=== PATIENT | male | born 1940 | race Caucasian/White ===

== ENCOUNTER 2016-07-17 07:31 | Inpatient (IN) | payer MEDICARE ==
[2016-07-17] VITALS (15 sets, daily range): BP systolic 109–159; BP diastolic 65–109; PULSE 64–95; RESP 14–20; TEMP 97.8–98.2; O2SAT 97–100
[~2016-07-17] VITALS: Ht 172.7 cm; Wt 76.3 kg
[~2016-07-17 07:31] MED LIST: ASPI81 CHEW; ATOR40TA PO; CLON0.5T PO; DOCU1CAP39 PO; MECL12.574 PO; METO50TA PO; MULT1TAB46 PO; NIGH25TA PO; PERC5TAB12 PO; ZOLP5TAB3 PO
[2016-07-17] MEDS ORDERED: SODIUM CHLOR 0.9% 250 ML INJ 250 ML IV ONE (08:00)
[2016-07-17] MEDS ORDERED: SODIUM CHLORIDE 0.9% FLUSH 5 ML FLUSH IVF PRN ×2 (08:00→09:15)
[2016-07-17 08:03] LABS: AUTOMATED NEUTROPHIL # 3.5 TH/MM3 (1.8-7.7); BASOPHIL % 0.9 % (0.0-2.0); EOSINOPHIL # 0.2 TH/MM3 (0-0.4); EOSINOPHIL % 4.4 % (0.0-4.0); HEMATOCRIT 33.6 % (39.0-51.0); LYMPH % 17.5 % (9.0-44.0); LYMPHOCYTE # 0.9 TH/MM3 (1.0-4.8); MEAN CELL VOLUME 74.6 FL (80.0-100.0); MEAN CORPUSCULAR HGB CONC 32.2 % (32.0-36.0); MONO % 7.7 % (0.0-8.0); NEUT % 69.5 % (16.0-70.0); PLATELET COUNT 188 TH/MM3 (150-450); RED CELL DISTRIBUTION WIDTH 20.3 % (11.6-17.2); WHITE BLOOD COUNT 5.1 TH/MM3 (4.0-11.0)
[2016-07-17 08:06] LABS: HEMO FLAGS AUTO DIFF
--- NOTE | 2016-07-17 08:06 | RADRPT ---
EXAM DATE/TIME: 07/17/2016 07:44 [facility] COMPARISON: CHEST SINGLE AP, February 15, 2016, 5:00. INDICATIONS : Possible CVA. MEDICAL HISTORY : Hypertension. Carcinoma, prostate. Renal carcinoma. SURGICAL HISTORY : Aortic valve replacement, mitral valve ring, nephrectomy. ENCOUNTER: Initial ACUITY: 1 day PAIN SCORE: 0/10 LOCATION: Bilateral chest FINDINGS: No infiltrate, effusion or pneumothorax. Normal heart size. Tortuous thoracic aorta and mediastinal v essels again noted. Patient has had previous median sternotomy. CONCLUSION: No evidence of acute cardiopulmonary disease. Michael Treviño MD on July 17, 2016 at 8:04 Board Certified Radiologist. This report was verified electronically.
[2016-07-17 08:10] LABS: APTT (PATIENT) 23.6 SEC (24.3-30.1); PROTHROMBIN TIME - PATIENT 10.5 SEC (9.8-11.6)
--- NOTE | 2016-07-17 08:11 | RADRPT ---
EXAM DATE/TIME: 07/17/2016 07:55 [facility] COMPARISON: No previous studies available for comparison. INDICATIONS : Left sided weakness. RADIATION DOSE: 56.35 CTDIvol (mGy) MEDICAL HISTORY : Hypertension. Cardiovascular disease Carcinoma, not otherwise specified. SURGICAL HISTORY : None. ENCOUNTER: Initial ACUITY: 1 day PAIN SCALE: 0/10 LOCATION: cranial TECHNIQUE: Multiple contiguous axial images were obtained of the head. Using automated exposure control and adj ustment of the mA and/or kV according to patient size, radiation dose was kept as low as reasonably a chievable to obtain optimal diagnostic quality images. FINDINGS: CEREBRUM: The ventricles are normal for age. No evidence of midline shift, mass lesion, hemorrhage or acute in farction. No extra-axial fluid collections are seen. There is low attenuation in the periventricular white matter. POSTERIOR FOSSA: The cerebellum and brainstem are intact. The 4th ventricle is midline. The cerebellopontine angle i s unremarkable. EXTRACRANIAL: The visualized portion of the orbits is intact. SKULL: The calvaria is intact. No evidence of skull fracture. CONCLUSION: No acute intracranial abnormality. Chronic white matter changes. Michael Treviño MD on July 17, 2016 at 8:08 Board Certified Radiologist. This report was verified electronically.
--- NOTE | 2016-07-17 08:12 | PD ---
HPI Chief Complaint: Neuro Symptoms/ Deficits Time Seen by Provider: 07:46 Travel History International Travel<30 days: No Contact w/Intl Traveler<30days: No Traveled to known affect area: No History of Present Illness HPI 75-year-old male came to the emergency room by EMS with strokelike symptoms. He was last seen normal by his daughter at 9 PM last night. He woke up at around 6:30 when he was complaining of left arm and left leg weakness to his daughter who called 911. As per EMS his weakness continued on route. He was a GCS of 15 according to them. His blood sugar was 102. He was hemodynamically stable. Patient was not complaining of any headache, no slurred speech. Patient did not wake up in the middle of the night to confirm any time of onset. Upon arrival patient continued to be weak on his left upper and more so on the left lower extremity. He was oriented in time place and person. Once again he was hemodynamically stable. Patient has history of mechanical valves and is not anticoagulated. No past history of CVA. [facility] Past Medical History Narrative Medical List of his past medical and social history as reviewed from the nursing note. Hx Anticoagulant Therapy: Yes Cancer: Yes (Kidney, prostate) Cardiovascular Problems: Yes High Cholesterol: Yes Chest Pain: No Diabetes: No Diminished Hearing: No Gastrointestinal Disorders: No GERD: Yes Glaucoma: No Genitourinary: Yes (right kidney removal) Hepatitis: No Hiatal Hernia: No Hypertension: Yes Inguinal Hernia: Yes Respiratory: No Integumentary: No Thyroid Disease: No ?: Not Past Surgical History Abdominal Surgery: Yes (INGUINAL HERNIA, HEMORRHOIDECTOMY) Endocrine Surgery: Yes (Right kidney removed for CA) Genitourinary Surgery: Yes (Hernia repair, Hemoroids) Thoracic Surgery: No Valve Replacement: Yes (AORTIC VALVE, MITRAL VALVE RING) Other Surgery: Yes Social History Alcohol Use: Yes (OCCASIONAL) Tobacco Use: No Substance Use: No Allergies-Medications (Allergen,Severity, Reaction): Coded Allergies: Benazepril (Verified Allergy, Severe, 02/14/16) Cipro (Verified Allergy, Severe, 02/14/16) Ibuprofen (Verified Allergy, Unknown, 07/17/16) Contrast Media (Verified Adverse Reaction, Unknown, 02/14/16) Pt has one Kidney Comments List of his allergies reviewed from the nursing note. Reported Meds & Prescriptions Reported Meds & Active Scripts Active Reported Lisinopril 20 Mg Tab 20 Mg PO DAILY Clonazepam 0.5 Mg Tab 0.25-0.5 Mg PO BID PRN Take daily as needed for anxiety or at bedtime as needed for insomnia Ambien (Zolpidem Tartrate) 5 Mg Tab 5 Mg PO HS PRN Benadryl Allergy (Diphenhydramine HCl) 25 Mg Tab 25 Mg PO HS PRN Meclizine (Meclizine HCl) 12.5 Mg Tab 12.5 Mg PO Q8HR PRN Percocet (Oxycodone-Acetaminophen) 5-325 mg Tab 0.5-1 Tab PO Q6HR PRN Tylenol Extra Strength (Acetaminophen) 500 Mg Tab 500 Mg PO Q6HR PRN Metoprolol Tartrate 25 Mg Tab 50 Mg PO BID Lipitor (Atorvastatin Calcium) 40 Mg Tab 40 Mg PO HS Norvasc (Amlodipine Besylate) 5 Mg Tab 5 Mg PO DAILY Omeprazole 20 Mg Tab 20 Mg PO DAILY Multi Vitamin (Multiple Vitamin) 1 Tab Tab 1 Tab PO DAILY Glucosamine-Chondroitin Unknown Strength Tab 1 Tab PO DAILY Colace (Docusate Sodium) 100 Mg Cap 100 Mg PO DAILY Aspirin Adult Low Strength (Aspirin) 81 Mg Tabdr 81 Mg PO DAILY Narrative Medication List of his home medications reviewed from the nursing note. Review of Systems Except as stated in HPI: all other systems reviewed are Neg Physical Exam Narrative GENERAL: Awake, eyes closed but opens on verbal stimuli, no obvious distress SKIN: Warm and dry. HEAD: Atraumatic. Normocephalic. EYES: Pupils equal and round. No scleral icterus. No injection or drainage. ENT: No nasal bleeding or discharge. Mucous membranes pink and moist. NECK: Trachea midline. No JVD. CARDIOVASCULAR: Regular rate and rhythm. No murmur appreciated. RESPIRATORY: No accessory muscle use. Clear to auscultation. Breath sounds equal bilaterally. GASTROINTESTINAL: Abdomen soft, non-tender, nondistended. Hepatic and splenic margins not palpable. MUSCULOSKELETAL: No obvious deformities. No clubbing. No cyanosis. No edema. NEUROLOGICAL: GCS of 14, left upper extremity strength of 3 out of 5 and left lower extremity strength of 2 out of 5, left homonymous hemianopia, patient is unable to read without his glasses. Best NIH stroke score without the reading glasses was 11 PSYCHIATRIC: Appropriate mood and affect; insight and judgment normal. Data Data Last Documented VS Vital Signs Date Time Temp Pulse Resp B/P Pulse Ox O2 Delivery O2 Flow Rate FiO2 07/17/16 07:49 65 18 145/98 98 Room Air 07/17/16 07:39 98.2 Orders Electrocardiogram (07/17/16 07:46) Prothrombin Time / Inr (Pt) (07/17/16 07:46) Act Partial Throm Time (Ptt) (07/17/16 07:46) Complete Blood Count With Diff (07/17/16 07:46) Comprehensive Metabolic Panel (07/17/16 07:46) Creatine Kinase (Cpk) (07/17/16 07:46) Troponin I (07/17/16 07:46) Urinalysis - C+S If Indicated (07/17/16 07:46) Ct Brain W/O Iv Contrast(Rout) (07/17/16 07:46) Chest, Single Ap (07/17/16 07:46) Ecg Monitoring (07/17/16 07:46) Iv Access Insert/Monitor (07/17/16 07:46) Oximetry (07/17/16 07:46) Sodium Chloride 0.9% Flush (Ns Flush) (07/17/16 08:00) Sodium Chlor 0.9% 250 Ml Inj (Ns 250 Ml (07/17/16 08:00) Aspirin Supp (Aspirin Supp) (07/17/16 08:15) Mri Brain W/O Contrast (07/17/16 ) Mra Brain W/O Contrast (Cow) (07/17/16 ) Us Carotid Arteries Comp Bilat (07/17/16 ) Neuro Checks . ORDERED (07/17/16 08:13) Echo 2d Comp W/Dopp(Routine) (07/17/16 ) Sodium Chlor 0.9% 1000 Ml Inj (Ns 1000 M (07/17/16 09:32) Admit Order (Ed Use Only) (07/17/16 08:56) Labs Laboratory Tests Test 07/17/16 07/17/16 07:25 08:36 White Blood Count 5.1 TH/MM3 Red Blood Count 4.50 MIL/MM3 Hemoglobin 10.8 GM/DL Hematocrit 33.6 % Mean Corpuscular Volume 74.6 FL Mean Corpuscular Hemoglobin 24.0 PG Mean Corpuscular Hemoglobin 32.2 % Concent Red Cell Distribution Width 20.3 % Platelet Count 188 TH/MM3 Mean Platelet Volume 7.6 FL Neutrophils (%) (Auto) 69.5 % Lymphocytes (%) (Auto) 17.5 % Monocytes (%) (Auto) 7.7 % Eosinophils (%) (Auto) 4.4 % Basophils (%) (Auto) 0.9 % Neutrophils # (Auto) 3.5 TH/MM3 Lymphocytes # (Auto) 0.9 TH/MM3 Monocytes # (Auto) 0.4 TH/MM3 Eosinophils # (Auto) 0.2 TH/MM3 Basophils # (Auto) 0.0 TH/MM3 CBC Comment AUTO DIFF Differential Comment AUTO DIFF CONFIRMED Prothrombin Time 10.5 SEC Prothromb Time International 1.0 RATIO Ratio Activated Partial 23.6 SEC Thromboplast Time Sodium Level 141 MEQ/L Potassium Level 4.9 MEQ/L Chloride Level 108 MEQ/L Carbon Dioxide Level 27.4 MEQ/L Anion Gap 6 MEQ/L Blood Urea Nitrogen 23 MG/DL Creatinine 1.66 MG/DL Estimat Glomerular Filtration 41 ML/MIN Rate Random Glucose 107 MG/DL Hemoglobin A1c 5.9 % Calcium Level 8.4 MG/DL Total Bilirubin 0.3 MG/DL Aspartate Amino Transf 18 U/L (AST/SGOT) Alanine Aminotransferase 18 U/L (ALT/SGPT) Alkaline Phosphatase 77 U/L Total Creatine Kinase 103 U/L Troponin I 0.03 NG/ML Total Protein 6.4 GM/DL Albumin 3.3 GM/DL Urine Color LIGHT-YELLOW Urine Turbidity CLEAR Urine pH 5.5 Urine Specific [place] 1.011 Urine Protein NEG mg/dL Urine Glucose (UA) NEG mg/dL Urine Ketones NEG mg/dL Urine Occult Blood NEG Urine Nitrite NEG Urine Bilirubin NEG Urine Urobilinogen LESS THAN 2.0 MG/DL Urine Leukocyte Esterase NEG Urine WBC LESS THAN 1 /hpf Urine Mucus FEW /lpf Microscopic Urinalysis Comment CATH-CULT NOT IND MDM Medical Decision Making Medical Screen Exam Complete: Yes Emergency Medical Condition: Yes Medical Record Reviewed: Yes Interpretation(s) Twelve-lead EKG was reviewed by me. Normal sinus rhythm, normal axis, lateral T wave inversions, LVH by voltage criteria. Heart rate of 62 bpm. Differential Diagnosis Thromboembolic CVA, hemorrhagic CVA, intracranial tumor Narrative Course 8:[address] scan without contrast did not show any bleed or any significant abnormality. Chest x-ray did not show any acute abnormality. I discussed the case with Dr. South who is clinical documentation improvement specialist for neurology. He agreed that given the unknown time of onset but definitely between last seen normal and recognition of stroke was more than 4.5 hours, patient is not a TPA candidate or any intervention at this point. He did not want the patient to be on any anticoagulant except for an aspirin suppository. He wanted MRI and MRA ordered along with ultrasound of the carotids and echocardiogram. He also wanted neurochecks every 2 hours. He is on his way to see the patient. I spoke with the patient's daughter who happens to be a staph at [employer] and updated her about his condition. Patient will require admission and given his extensive show he should be admitted to at least [facility]. Waiting for the blood test results to come back if I speak with the hospitalist. His head end of the bed would be flat and I have ordered 250 cc of IV fluid followed by maintenance. Critical Care Narrative Aggregate critical care time was 45 minutes. Time to perform other separately billable procedures was not included in the critical care time. My time did not include minutes spent treating any other patients simultaneously or on activities that did not directly contribute to the patient's treatment. The services I provided to this patient were to treat and/or prevent clinically significant deterioration that could result in: Acute CVA, not a TPA candidate I provided critical care services requiring my management, as noted below: Chart data review, documentation time, medication orders and management, vital sign assessments/reviewing monitor data, ordering and reviewing lab tests, ordering and interpreting/reviewing x-rays and diagnostic studies, care of the patient and discussion of the patient with the admitting physicians. Procedures EKG Prior to Arrival: No Physician Communication Physician Communication Dr. South Diagnosis Primary Impression: Acute CVA (cerebrovascular accident) Additional Impressions: Left hemiplegia Hemianopia, homonymous, left Renal insufficiency Single kidney Admitting Information Admitting Physician Requests: Pricilla Brandon MD Jul 17, 2016 08:12
[2016-07-17] MEDS ORDERED: ASPIRIN 300 MG SUPP RECTAL ONE (08:15)
[2016-07-17 08:22] LABS: ALT (GPT) 18 U/L (12-78); ANION GAP 6 MEQ/L (5-15); AST (GOT) 18 U/L (15-37); BICARBONATE 27.4 MEQ/L (21.0-32.0); BLOOD UREA NITROGEN 23 MG/DL (7-18); CHLORIDE 108 MEQ/L (98-107); GLOMERULAR FILTRATION RATE 41 ML/MIN (>89); POTASSIUM 4.9 MEQ/L (3.5-5.1); SODIUM (NA) 141 MEQ/L (136-145)
[2016-07-17 08:26] LABS: ALKALINE PHOSPHATASE 77 U/L (45-117); CREATINE KINASE 103 U/L (39-308); TOTAL BILIRUBIN ADULT 0.3 MG/DL (0.2-1.0)
[2016-07-17 08:48] LABS: BLOOD, URINE NEG (NEG); GLUCOSE,URINE NEG (NEG); KETONE, URINE NEG (NEG); MUCUS URINE FEW /lpf (OCC); NITRITE,URINE NEG (NEG); PH, URINE 5.5 (5.0-8.5); URINE COLOR LIGHT-YELLOW (YELLW/STRAW)
[2016-07-17 08:49] LABS: COMMENT (UR) CATH-CULT NOT IND; CULTURE IF INDICATED CATH CULTURE NOT IND
[2016-07-17 08:57] LABS: SCAN/DIFF AUTO DIFF CONFIRMED
[2016-07-17] MEDS ORDERED: LIPI40TA PO (09:06)
[2016-07-17] MEDS ORDERED: BENA25TA3 PO (09:06)
[2016-07-17] MEDS ORDERED: CLON0.5T PO (09:06)
[2016-07-17] MEDS ORDERED: OMEP20TA PO (09:06)
[2016-07-17] MEDS ORDERED: MULT-135 PO (09:06)
[2016-07-17] MEDS ORDERED: ASPI1TAB91 PO (09:06)
[2016-07-17] MEDS ORDERED: ACET-703 PO (09:06)
[2016-07-17] MEDS ORDERED: METO25TA3 PO (09:06)
[2016-07-17] MEDS ORDERED: AMLO5 PO (09:06)
[2016-07-17] MEDS ORDERED: PERC5TAB12 PO (09:06)
[2016-07-17] MEDS ORDERED: MECL12.574 PO (09:06)
[2016-07-17] MEDS ORDERED: GLUC1CHW PO (09:06)
[2016-07-17] MEDS ORDERED: AMBI5TAB PO (09:06)
[2016-07-17] MEDS ORDERED: COLA100C3 PO (09:06)
[2016-07-17] MEDS ORDERED: LISI-515 PO (09:10)
[2016-07-17] MEDS ORDERED: LABETALOL HCL 100 MG/20 ML VIAL IV PRN (09:15)
[2016-07-17] MEDS ORDERED: ASPIRIN 325 MG TAB PO SCH (09:15)
[2016-07-17] MEDS ORDERED: SODIUM CHLOR 0.9% 1000 ML INJ 1,000 ML IV SCH (09:32)
--- NOTE | 2016-07-17 10:05 | HHI.HP ---
HPI Service [facility] Hospitalists Primary Care Physician Gage Alvarenga MD Admission Diagnosis acute CVA Chief Complaint: left sided weakness Travel History International Travel<30 Days: No Contact w/Intl Traveler <30 Da: No Traveled to Known Affected Are: No History of Present Illness Pt is a pleasant 75 y/o M with h/o HTN, hyperlipidemia, CKD, s/p AV replacement by [employer] Trifecta 01/13/16 and s/p MV repair by annuloplasy with [employer] Ring. Pt required readmission for pericardial effusion and underwent CT guided drainage by IR. Pt was then readmitted 02/13 - 02/17/17 with recurrent pericardial effusion with tamponade physiology. Pt was taken back to the OR by Dr. Michelle Velasco and underwent surgical drainage of pericardial effusion via pericardial window. Pt now present to the [place] ER (07/17/16) with c/o left sided weakness. Per ER physician JOSUE 2/5 upon arrival and remains 2/5, but LLE 2/5 upon arrival and now 3/5. At the time of my visit muscle strength was 4/5 at LLE and LUE with rightward gaze. Pt was last seen normal by his daughter at 9PM last night. Exact timing of onset of symptoms is unclear. ER physician discussed the case with Neurology, Dr. South, and it was decided NOT to give tPA. Pt is A&OX3. There is NO slurred speech, [place], or difficulty swallowing. Pt does NOT have mechanical valves. Pt is NOT anticoagulated. Pt has complex PMH, but NO h/o TIA or CVA. CT brain (07/17/16) did NOT show hemorrhage. History obtain by discussion with pt, daughter, ER physician. Records were reviewed in [facility] EHR. Review of Systems Constitutional: DENIES: Diaphoretic episodes, Fatigue, Fever, Weight gain, Weight loss, Chills, Dizziness, Change in appetite, Night Sweats Endocrine: DENIES: Heat/cold intolerance, Polydipsia, Polyuria, Polyphagia Eyes: DENIES: Blurred vision, Diplopia, Eye inflammation, Eye pain, Vision loss , Photosensitivity, Double Vision Ears, nose, mouth, throat: DENIES: Tinnitus, Hearing loss, Vertigo, Nasal discharge, Oral lesions, Throat pain, Hoarseness, Ear Pain, Running Nose, Epistaxis, Sinus Pain, Toothache, Odynophagia Respiratory: DENIES: Apneas, Cough, Snoring, Wheezing, Hemoptysis, Sputum production, Shortness of breath Cardiovascular: DENIES: Chest pain, Palpitations, Syncope, Dyspnea on Exertion , PND, Lower Extremity Edema, Orthopnea, Claudication Gastrointestinal: DENIES: Abdominal pain, Black stools, Bloody stools, BRB per rectum, Constipation, Diarrhea, GERD, Nausea, Reflux, Vomiting, Difficulty Swallowing, Anorexia Genitourinary: DENIES: Urinary frequency, Urinary incontinence, Urgency, Hematuria, Dysuria, Nocturia Musculoskeletal: DENIES: Joint pain, Muscle aches, Stiffness, Joint Swelling, Back pain, Neck pain Integumentary: DENIES: Abnormal pigmentation, Nail changes, Pruritus, Rash Hematologic/lymphatic: DENIES: Bruising, Lymphadenopathy Immunologic/allergic: DENIES: Eczema, Urticaria Neurologic: COMPLAINS OF: Localized weakness, DENIES: Abnormal gait, Headache , Paresthesias, Seizures, Speech Problems, Tremor, Poor Balance Psychiatric: DENIES: Anxiety, Confusion, Mood changes, Depression, Hallucinations, Agitation, Suicidal Ideation, Homicidal Ideation, Delusions, History of Bipolar, History of Schizophrenia Past Family Social History Past Medical History 1) s/p AV replacement with [employer] Trifecta, bioprosthetic by Dr. Michelle Velasco 01/03/16 2) s/p MV repair by annuloplasty with [employer] Ring 01/03/16 3) Rehospitalization 02/05/[address] guided pericardial centesis 4) Rehospitalization 02/13 - 02/17/17 for recurrent pericardial effusion with tamponade requiring surgical drainage by Dr. 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 Wallace - s/p radiation therapy Past Surgical History 1) s/p AV replacement with [employer] Trifecta, bioprosthetic by Dr. Michelle Velasco 01/03/16 2) s/p MV repair by annuloplasty with [employer] Ring 01/03/16 3) Rehospitalization 02/05/[address] guided pericardial centesis 4) Rehospitalization 02/13 - 02/17/17 for recurrent pericardial effusion with tamponade requiring surgical drainage by Dr. Velasco 5) Prostate biopsy 6) Colonoscopy 7) Right Nephrectomy d/t RCC 8) Inguinal hernial repair 9) Hemorrhoidectomy Reported Medications Reported Meds & Active Scripts Active Reported Lisinopril 20 Mg Tab 20 Mg PO DAILY Clonazepam 0.5 Mg Tab 0.25-0.5 Mg PO BID PRN Take daily as needed for anxiety or at bedtime as needed for insomnia Ambien (Zolpidem Tartrate) 5 Mg Tab 5 Mg PO HS PRN Benadryl Allergy (Diphenhydramine HCl) 25 Mg Tab 25 Mg PO HS PRN Meclizine (Meclizine HCl) 12.5 Mg Tab 12.5 Mg PO Q8HR PRN Percocet (Oxycodone-Acetaminophen) 5-325 mg Tab 0.5-1 Tab PO Q6HR PRN Tylenol Extra Strength (Acetaminophen) 500 Mg Tab 500 Mg PO Q6HR PRN Metoprolol Tartrate 25 Mg Tab 50 Mg PO BID Lipitor (Atorvastatin Calcium) 40 Mg Tab 40 Mg PO HS Norvasc (Amlodipine Besylate) 5 Mg Tab 5 Mg PO DAILY --> previously stopped outpt Omeprazole 20 Mg Tab 20 Mg PO DAILY Multi Vitamin (Multiple Vitamin) 1 Tab Tab 1 Tab PO DAILY Glucosamine-Chondroitin Unknown Strength Tab 1 Tab PO DAILY Colace (Docusate Sodium) 100 Mg Cap 100 Mg PO DAILY Aspirin Adult Low Strength (Aspirin) 81 Mg Tabdr 81 Mg PO DAILY Allergies: Coded Allergies: Benazepril (Verified Allergy, Severe, 02/14/16) Cipro (Verified Allergy, Severe, 02/14/16) Ibuprofen (Verified Allergy, Unknown, 07/17/16) Contrast Media (Verified Adverse Reaction, Unknown, 02/14/16) Pt has one Kidney Family History Non-contributory Social History - - 2 children, one of whom is employed at [employer] in Risk Mgmt - 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 SKIN: No rashes, ecchymoses or lesions. Cool and dry. HEAD: Atraumatic. Normocephalic. No temporal or scalp tenderness. EYES: Pupils equal round and reactive. Extraocular motions intact. No scleral icterus. No injection or drainage. ENT: Nose without bleeding, purulent drainage or septal hematoma. Throat without erythema, tonsillar hypertrophy or exudate. Uvula midline. Airway patent. NECK: Trachea midline. No JVD or lymphadenopathy. Supple, nontender, no meningeal signs. CARDIOVASCULAR: Regular rate and rhythm, + click RESPIRATORY: Clear to auscultation. Breath sounds equal bilaterally. No wheezes , rales, or rhonchi. GASTROINTESTINAL: Abdomen soft, non-tender, nondistended. No hepato-splenomegaly , or palpable masses. No guarding. MUSCULOSKELETAL: left sided weakness. LUE 4/5, LLE 4/5, rightward gaze NEUROLOGICAL: Awake and alert. Cranial nerves II through XII intact. Motor and sensory grossly within normal limits. Five out of 5 muscle strength in all muscle groups. Normal speech. Laboratory Laboratory Tests Test 07/17/16 07/17/16 07:25 08:36 White Blood Count 5.1 Red Blood Count 4.50 Hemoglobin 10.8 Hematocrit 33.6 Mean Corpuscular Volume 74.6 Mean Corpuscular Hemoglobin 24.0 Mean Corpuscular Hemoglobin 32.2 Concent Red Cell Distribution Width 20.3 Platelet Count 188 Mean Platelet Volume 7.6 Neutrophils (%) (Auto) 69.5 Lymphocytes (%) (Auto) 17.5 Monocytes (%) (Auto) 7.7 Eosinophils (%) (Auto) 4.4 Basophils (%) (Auto) 0.9 Neutrophils # (Auto) 3.5 Lymphocytes # (Auto) 0.9 Monocytes # (Auto) 0.4 Eosinophils # (Auto) 0.2 Basophils # (Auto) 0.0 CBC Comment AUTO DIFF Differential Comment AUTO DIFF CONFIRMED Prothrombin Time 10.5 Prothromb Time International 1.0 Ratio Activated Partial 23.6 Thromboplast Time Sodium Level 141 Potassium Level 4.9 Chloride Level 108 Carbon Dioxide Level 27.4 Anion Gap 6 Blood Urea Nitrogen 23 Creatinine 1.66 Estimat Glomerular Filtration 41 Rate Random Glucose 107 Calcium Level 8.4 Total Bilirubin 0.3 Aspartate Amino Transf 18 (AST/SGOT) Alanine Aminotransferase 18 (ALT/SGPT) Alkaline Phosphatase 77 Total Creatine Kinase 103 Troponin I 0.03 Total Protein 6.4 Albumin 3.3 Urine Color LIGHT-YELLOW Urine Turbidity CLEAR Urine pH 5.5 Urine Specific [place] 1.011 Urine Protein NEG Urine Glucose (UA) NEG Urine Ketones NEG Urine Occult Blood NEG Urine Nitrite NEG Urine Bilirubin NEG Urine Urobilinogen LESS THAN 2.0 Urine Leukocyte Esterase NEG Urine WBC LESS THAN 1 Urine Mucus FEW Microscopic Urinalysis Comment CATH-CULT NOT IND Result Diagram: 07/17/1672407/17/16724 Imaging Last Impressions Head CT 07/17/16745 Signed Impressions: Service Date/Time: Sunday, July 17, 2016 07:55 - CONCLUSION: No acute intracranial abnormality. Chronic white matter changes. Michael Treviño MD Chest X-Ray 07/17/16745 Signed Impressions: Service Date/Time: Sunday, July 17, 2016 07:44 - CONCLUSION: No evidence of acute cardiopulmonary disease. Michael Treviño MD Septic Shock Reassessment Heart: Regular rate and rhythm Lungs: Clear Skin: Warm Peripheral Pulses: Bounding Right Radial Bounding Left Radial Bounding Right Popliteal Bounding Left Popliteal Bounding Right Dorsalis Pedis Bounding Left Dorsalis Pedis Bounding Right Posterior Tibial Bounding Left Posterior Tibial Capillary Refill: Brisk Assessment and Plan Problem List: (1) Acute CVA (cerebrovascular accident) Status: Acute Plan: - comgmt with Neurology, Dr. South - CT brain (07/17/16) --> NO acute findings - IVFs - ASA - obtain MRI/MRA brain - obtain Carotid US - obtain Echocardiogram - observe on Telemetry - obtain Holter Monitor - obtain fasting lipid panel - HOB flat x 12 hours - allow permissive HTN - obtain PT evaluation (2) Left hemiplegia Status: Acute Plan: - see above (3) HTN (hypertension) Status: Acute Plan: - hold home BP meds: lisinopril, metoprolol, norvasc - permissive HTN (4) Hyperlipidemia Status: Acute Plan: - obtain fasting lipid panel - continue statin (5) S/P AVR (aortic valve replacement) Status: Acute Plan: - see HPI (6) S/P mitral valve repair Status: Acute Plan: - see HPI (7) Dilated cardiomyopathy Status: Acute (8) Chronic kidney disease Status: Chronic Plan: - observe (9) Hernandez esophagus Status: Chronic Plan: - PPI (10) Cardiomyopathy Status: Chronic Plan: - EF 35% with hypokinesis on echocardiogram 01/2016 - hold CARY & BB d/t CVA Physician Certification 2 Midnight Certification Type: Admission for Inpatient Services Order for Inpatient Services The services are ordered in accordance with Medicare regulations or non- Medicare payer requirements, as applicable. In the case of services not specified as inpatient-only, they are appropriately provided as inpatient services in accordance with the 2-midnight benchmark. Estimated LOS (days): 3 3 days is the estimated time the patient will need to remain in the hospital, assuming treatment plan goals are met and no additional complications. Post-Hospital Plan: Not yet determined Problem Qualifiers (1) HTN (hypertension): Qualified Code: I10 - Essential hypertension (2) Hyperlipidemia: Qualified Code: E78.5 - Hyperlipidemia, unspecified hyperlipidemia type (3) Chronic kidney disease: Qualified Code: N18.3 - Chronic kidney disease, stage 3 (moderate) (4) Hernandez esophagus: Qualified Code: K22.719 - Hernandez's esophagus with dysplasia (5) Cardiomyopathy: Qualified Code: I42.0 - Dilated cardiomyopathy Isreal Barron DO Jul 17, 2016 10:05
[2016-07-17] MEDS ORDERED: oxyCODONE/ACETAMINOPHEN 5 MG/325 MG TAB PO PRN (10:15)
--- NOTE | 2016-07-17 10:50 | RADRPT ---
EXAM DATE/TIME: 07/17/2016 10:01 [facility] COMPARISON: MRA BRAIN W/O CONTRAST, July 17, 2016, 10:01. CT BRAIN W/O CONTRAST, July 17, 2016, 7:55. INDICATIONS : Left sided weakness. MEDICAL HISTORY : Hypercholesterolemia. Hypertension. SURGICAL HISTORY : Inguinal hernia repair. Hemorrhoidectomy. Aortic and mitral valve repair. ENCOUNTER: Initial ACUITY: 1 day PAIN SCORE: 0/10 LOCATION: cranial TECHNIQUE: Multiplanar, multisequence MRI of the brain was performed without contrast. FINDINGS: CEREBRUM: The ventricles are normal for age. No evidence of midline shift, mass lesion, hemorrhage or acute in farction. No extraaxial fluid collections are seen. The pituitary gland and suprasellar cistern are normal in configuration. WHITE MATTER: Moderate to severe chronic flair signal abnormality seen in the deep and periventricular white matter of both cerebral hemispheres. POSTERIOR FOSSA: The cerebellum and brainstem are intact. The 4th ventricle is midline. The cerebellopontine angle is unremarkable. The cerebellar tonsils are normal in position. DIFFUSION IMAGING: There is 13 mm faintly restricted diffusion in the region of the right thalamus. EXTRACRANIAL: The visualized portions of the orbits and paranasal sinuses are unremarkable. CONCLUSION: 1. Acute or subacute infarct focally involving the right thalamus. 2. No other acute intracranial abnormality demonstrated. 3. There are moderate to severe chronic bilateral white matter changes. Michael Treviño MD on July 17, 2016 at 10:47 Board Certified Radiologist. This report was verified electronically.
--- NOTE | 2016-07-17 10:52 | RADRPT ---
EXAM DATE/TIME: 07/17/2016 10:01 [facility] COMPARISON: MRI BRAIN W/O CONTRAST, July 17, 2016, 10:01. CT BRAIN W/O CONTRAST, July 17, 2016, 7:55. INDICATIONS : Left sided weakness. MEDICAL HISTORY : Hypercholesterolemia. Hypertension. SURGICAL HISTORY : Hemorrhoidectomy. Inguinal hernia repair. Aortic and mitral valve repair. ENCOUNTER: Initial ACUITY: 1 day PAIN SCORE: 0/10 LOCATION: cranial Please note a normal MRA of the brain does not entirely exclude the possibility of a small aneurysm, nor the possibility of distal intracranial vessel disease. TECHNIQUE: 3D time of flight MRA was performed. Source images, multiplanar STS MIP, and 3D volume MIP reconstru ctions were reviewed. FINDINGS: There is excellent visualization of the major intracranial arteries out to the second-order branch ve ssels. There is no evidence for aneurysm, vessel truncation or stenosis, and no evidence for vascula r malformation. CONCLUSION: Normal intracranial MRA. Michael Treviño MD on July 17, 2016 at 10:49 Board Certified Radiologist. This report was verified electronically.
[2016-07-17] MEDS: 1/2 NS + KCL 20 MEQ INJ 1,000 ML IV SCH ×2 (11:11→22:55)
[2016-07-17] MEDS: PANTOPRAZOLE SOD 20 MG DELAYED RELEASE TAB PO SCH (11:11)
[2016-07-17] MEDS: ACETAMINOPHEN 500 MG CPLT PO PRN ×2 (11:25→20:02)
[2016-07-17 12:43] LABS: HEMOGLOBIN A1a 1.5 %; HEMOGLOBIN A1b 1.8 %; HEMOGLOBIN Ao 83.9 %; HEMOGLOBIN LA1C 2.1 %; HEMOGLOBIN P3 4.3 %
[2016-07-17] MEDS ORDERED: ONDANSETRON HCL 4 MG/2 ML VIAL IV PUSH PRN (13:15)
--- NOTE | 2016-07-17 14:10 | EC ---
Study Study Date:07/17/2016 STUDY CONCLUSIONS SUMMARY - Left ventricle: The cavity size was normal. Wall thickness was increased in a pattern of moderate LVH. Systolic function was normal. The estimated ejection fraction was in the range of 50% to 55%. Wall motion was normal; there were no regional wall motion abnormalities. Left ventricular diastolic function parameters were normal. - Mitral valve: Mild regurgitation. Valve area by pressure half-time: 1.23cm^2. - Tricuspid valve: Mild regurgitation. If LV function is below 40, please consider prescribing an ACEI or ARB or document rationale for non-use. PROCEDURE DATA STUDY STATUS: Elective. Procedure: Transthoracic echocardiography. Image quality was good. Scanning was performed from the parasternal, apical, and subcostal acoustic windows. Study completion: The patient tolerated the procedure well. Transthoracic echocardiography. M-mode, complete 2D, complete spectral Doppler, and color Doppler. Patient status: Inpatient. CARDIAC ANATOMY LEFT VENTRICLE: The cavity size was normal. Wall thickness was increased in a pattern of moderate LVH. Systolic function was normal. The estimated ejection fraction was in the range of 50% to 55%. Wall motion was normal; there were no regional wall motion abnormalities. The transmitral flow pattern was normal. The deceleration time of the early transmitral flow velocity was normal. The pulmonary vein flow pattern was normal. The tissue Doppler parameters were normal. Left ventricular diastolic function parameters were normal. AORTIC VALVE: Trileaflet; moderately thickened, moderately calcified leaflets. Doppler: Transvalvular velocity was within the normal range. There was no stenosis. No regurgitation. Mean gradient: 5mm Hg (S). Peak gradient: 13mm Hg (S). AORTA: Aortic root: The aortic root was normal in size. MITRAL VALVE: Structurally normal valve. Doppler: Transvalvular velocity was within the normal range. There was no evidence for stenosis. Mild regurgitation. Valve area by pressure half-time: 1.23cm^2. Mean gradient: 5mm Hg (D). Peak gradient: 11mm Hg (D). LEFT ATRIUM: The atrium was normal in size. RIGHT VENTRICLE: The cavity size was normal. Wall thickness was normal. Systolic pressure was within the normal range. PULMONIC VALVE: Doppler: Transvalvular velocity was within the normal range. There was no evidence for stenosis. Mild to moderate regurgitation. TRICUSPID VALVE: Structurally normal valve. Doppler: Transvalvular velocity was within the normal range. Mild regurgitation. PULMONARY ARTERY: The main pulmonary artery was normal-sized. Systolic pressure was within the normal range. RIGHT ATRIUM: The atrium was normal in size. PERICARDIUM: There was no pericardial effusion. SYSTEMIC VEINS: Inferior vena cava: The vessel was normal in size. BASIC MEASUREMENTS ADULT Normal Left ventricle LV internal dimension, ED, chordal level, *30 mm 43-52 PLAX LV internal dimension, ES, chordal level, 25.8 mm 23-38 PLAX Fractional shortening, chordal level, PLAX *14 % >29 LV posterior wall thickness, ED 10.9 mm IVS/LVPW ratio, ED *1.39 <1.3 Ventricular septum Septal thickness, ED 15.1 mm Aortic valve Leaflet separation 21 mm 15-26 Left atrium Anterior-posterior dimension 42 mm Right ventricle RV internal dimension, ED, PLAX 28.4 mm 19-38 BASIC MEASUREMENTS ADULT Normal Aortic valve Leaflet separation 21 mm 15-26 Aorta Root diameter, ED 34 mm 20-37 DOPPLER MEASUREMENTS ADULT Normal Aortic valve Peak velocity, S 182 cm/s Mean velocity, S 96.9 cm/s VTI, S 63.6 cm Mean gradient, S 5 mm Hg Peak gradient, S 13 mm Hg Mitral valve Peak E-wave velocity 138 cm/s Peak A-wave velocity 138 cm/s Mean velocity, D 97.8 cm/s Pressure half-time 179 ms Mean gradient, D 5 mm Hg Peak gradient, D 11 mm Hg Peak E/A ratio 1 Valve area, pressure half-time 1.23 cm^2 Tricuspid valve Regurgitant peak velocity 264 cm/s Peak RV-RA gradient, S 28 mm Hg Maximal regurgitant velocity 264 cm/s LEGEND: Mean values are shown as u=mean value. Asterisk (*) howard values outside specified normal range. Prepared and signed by [place] [id number]
--- NOTE | 2016-07-17 15:14 | RADRPT ---
EXAM DATE/TIME: 07/17/2016 13:48 [facility] COMPARISON: US CAROTID ARTERIES, January 19, 2016, 15:55. INDICATIONS : Cerebrovascular accident. MEDICAL HISTORY : Hypertension. Hypercholesterolemia. Gastroesophageal reflux disease. Chronic kidney disease. Renal ca ncer. SURGICAL HISTORY : Right kidney removed secondary to cancer. Inguinal hernia repair. Hemorroidectomy. Aortic valve repla cement. ENCOUNTER: Subsequent ACUITY: 1 day PAIN SCORE: 0/10 LOCATION: Bilateral neck PEAK SYSTOLIC VELOCITIES (cm/sec): ICA/CCA RATIO: Right: 1.9 Left: 1.0 ICA: Right: 125 Left: 73 CCA: Right: 67 Left: 74 ECA: Right: 75 Left: 74 VERTEBRAL: Right: 39 antegrade Left: 35 antegrade Elevated flow velocities and ICA/CCA ratios have been found to correlate with increased degrees of vessel stenosis, calculated as percentage of diameter relative to a normal segment of distal ICA/CCA FINDINGS: RIGHT CAROTID: Moderate plaque seen in the bulb and proximal ICA. LEFT CAROTID: Moderate plaque seen of the bulb and proximal ICA. VERTEBRAL ARTERIES: Antegrade flow is seen in both vertebral arteries. MISCELLANEOUS: None. CONCLUSION: Moderate atherosclerosis of both carotid bifurcations again noted, similar to before. No grayscale or Doppler evidence of hemodynamically significant narrowing. Michael Treviño MD on July 17, 2016 at 15:10 Board Certified Radiologist. This report was verified electronically.
--- NOTE | 2016-07-17 16:59 | EKG ---
Date Performed: 07/17/2016 Time Performed: 08:24:16 PTAGE: 75 years EKG: Sinus rhythm ST DEVIATION AND MODERATE T-WAVE ABNORMALITY, CONSIDER LATERAL ISCHEMIA Left ventricular hypertrophy with secondary ST-T wave change. When compared to previous tracing, heart rate is slower, and the Pr emature ventrricular contractions have rresolved. ABNORMAL ECG PREVIOUS TRACING : 02/14/2016 11.42 DOCTOR: Bradford Archer Interpretating Date/Time 07/17/2016 16:59:26
[2016-07-17] MEDS: clonazePAM 0.5 MG TAB PO PRN (20:19)
[2016-07-17] MEDS: ATORVASTATIN 40 MG TAB PO SCH (20:21)
[2016-07-17] MEDS ORDERED: SODIUM CHLORIDE 0.9% FLUSH 5 ML FLUSH IVF SCH (21:00)
[2016-07-17] MEDS ORDERED: DEXTROSE 50% IN WATER 50 ML VIAL(D50) IV PUSH PRN (22:30)
[2016-07-17] MEDS ORDERED: GLUCAGON 1 MG/ML VIAL IM/SQ PRN (22:30)
--- NOTE | 2016-07-17 22:45 | MB ---
cc: LEONIDES JEWELL DATE OF CONSULTATION 07/17/16 REASON FOR CONSULTATION Stroke HISTORY OF PRESENT ILLNESS Mr. Burton is a 75-year-old man who has a history of aortic valve replacement. The patient was last seen normal yesterday evening at 9:00 p.m. He woke up this morning and noted significant weakness of the left arm and left leg and came to the emergency room. I discussed the case with the physician in the ER. Because of the timing, he was well out of the window for TPA and also for consideration of intervention. Therefore, TPA was not administered. He denies any previous history of stroke. PAST MEDICAL HISTORY 1. History of aortic valve replacement by a St. Nik Trifacta valve and also mitral valve repair by annuloplasty the St. Nik ring. 2. History of dilated cardiomyopathy, 3. Hypertension, 4. Hyperlipidemia, 5. Renal cell carcinoma treated with nephrectomy 6. Hernandez's esophagus 7. Prostate cancer status post radiation therapy. 8. Recurrent pericardial effusion with tamponade requiring surgical drainage. MEDICATIONS At home, 1. Lisinopril. 2. Clonazepam. 3. Ambien. 4. Benadryl. 5. Meclizine. 6. Percocet. 7. Tylenol. 8. Metoprolol. 9. Lipitor. 10. Norvasc. 11. Omeprazole. 12. Glucosamine. 13. Aspirin. 14. Colace ALLERGIES BENAZEPRIL CIPRO IBUPROFEN CONTRAST MEDIA He has one kidney. SOCIAL HISTORY Noncontributory. Drinks alcohol occasionally. Does not smoke. NEUROLOGIC EXAMINATION His blood pressure is 152/107, pulse 93, respirations are 16, temperature is 98 degrees. Higher cortical function - he is alert, oriented x3. Speech is normal. Cranial nerves: He has a mild left upper motor neuron cranial nerve VII palsy. The pupils are equal. Extraocular movements are intact. On motor exam, he is very weak in the left arm rated at approximately 1/5 proximally and distally. The left leg is 2/5 proximal and distal. He has normal strength in the right arm and right leg. Reflexes are 1+ symmetric with a Babinski on the left but not on the right. IMAGING STUDIES CT of the brain - no acute change present. MRI of the brain shows an acute or subacute infarct in the right thalamus, no hemorrhage. MRA brain is normal. Carotid ultrasound - moderate atherosclerosis in both carotid bifurcations, no evidence of hemodynamically significant narrowing. LABORATORY DATA White count is 5100, hemoglobin 10.8, hematocrit 33.6%, platelet count 188,000. Sodium is 141, potassium 4.9, chloride 108, CO2 27.4, creatinine 1.66, BUN is 23, GFR is 41, AST 18, ALT is 18, PT 10.5, INR one, APTT 23.6. IMPRESSION Right thalamic stroke. As noted above and as discussed earlier today with the physician in the emergency room, the patient was not a candidate for TPA given the timing which put him out of the therapeutic window. He is also not within the therapeutic window for intervention. RECOMMENDATIONS At the present time, would recommend starting Plavix 75 mg daily. Continue aspirin. Would like to get an MRA of the carotids to further evaluate for any carotid stenosis. Also we will check an echocardiogram to rule out cardioembolic source. Continue to monitor telemetry as well to rule out atrial fibrillation. MD KONSTANTIN Escobar/ /10:17 PM /10:26 PM
[2016-07-17] MEDS: SODIUM CHLOR 0.9% 1000 ML INJ 1,000 ML IV SCH (23:35)
[2016-07-18] VITALS (21 sets, daily range): BP systolic 146–191; BP diastolic 102–115; PULSE 78–115; RESP 15–18; TEMP 97.8–99; O2SAT 94–98
[2016-07-18] MEDS: ACETAMINOPHEN 500 MG CPLT PO PRN (01:19)
[2016-07-18] MEDS: clonazePAM 0.5 MG TAB PO PRN ×2 (04:50→18:48)
[2016-07-18] MEDS: INSULIN ASPART SUPPLEMENTAL SCALE SQ SCH ×4 (05:44→21:00)
[2016-07-18 07:33] LABS: HDL CHOLESTEROL 31.1 MG/DL (40.0-60.0)
[2016-07-18] MEDS: DOCUSATE SODIUM 100 MG CAP PO SCH (08:28)
[2016-07-18] MEDS: SODIUM CHLORIDE 0.9% FLUSH 5 ML FLUSH IVF SCH ×2 (08:28→23:52)
[2016-07-18] MEDS: PANTOPRAZOLE SOD 20 MG DELAYED RELEASE TAB PO SCH (08:28)
[2016-07-18] MEDS: ASPIRIN 325 MG TAB PO SCH ×2 (08:28→09:00)
[2016-07-18] MEDS ORDERED: CLOPIDOGREL 75 MG TAB PO SCH (09:00)
--- NOTE | 2016-07-18 09:26 | HHI.PR ---
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 Plan I recommended starting plavix since he was on asa 81 mg daily at the time of the stroke. However, his daughter is very concerned as she states he had pericardial effusion/hematoma while on plavix last fall. Current echo shows no pericardial effusion. Will consult his high lift mule operator Dr Meredith regarding antiplatelet agent . For now continue asa. Continue to monitor cardiac telemetry to r/o intermittent afib. Consider intermediate frame tender linq recorder as outpatient if no etiology of stroke identified if cardiology feels appropriate. follow up MRA carotids in neck. Diagnosis/Plan: Subjective Subjective Comments No acute events reported He is getting more movement of the left arm proximally but still very weak in the left surgical aide. Improving mobility of left LE as well. His daughter has noted left sided neglect--orients better to the right. Also she feels he has had some cognitive sx as well--impulse control, poor memory Active Medications Current Medications Medications (Trade) Dose Ordered Sig/Kirti Route Start Time Stop Time Status Last Admin (Trandate Inj) 10 mg Q2H PRN IV 07/17/16 09:15 (Aspirin) 325 mg DAILY PO 07/18/16 08:00 07/18/16 09:00 (Tylenol) 500 mg Q6HR PRN PO 07/17/16 10:15 07/18/16 01:19 (Lipitor) 40 mg HS PO 07/17/16 21:00 07/17/16 20:21 (KlonoPIN) 0.5 mg BID PRN PO 07/17/16 10:15 07/18/16 04:50 (Colace) 100 mg DAILY PO 07/18/16 09:00 07/18/16 08:28 (Protonix) 20 mg DAILY PO 07/17/16 10:15 07/18/16 08:28 Oxycodone/ Acetaminophen 1 tab 1 tab Q6HR PRN PO 07/17/16 10:15 07/18/16 03:54 (1/2 NS + KCl 20 Meq Inj) 1,000 ml @ 84 mls/hr [id number] IV 07/17/16 11:00 07/17/16 11:11 (Zofran Inj) 4 mg Q6HR PRN IV PUSH 07/17/16 13:15 07/17/16 13:19 (Flu (Quadrivalent) Vaccine Inj) 0.5 ml ONCE ONCE IM 07/18/16 10:00 07/18/16 10:01 (NS Flush) 2 ml BID IVF 07/18/16 09:00 07/18/16 08:28 IV Flush 2 ml 2 ml UNSCH PRN IVF 07/17/16 22:30 (NS 1000 ml Inj) 1,000 ml @ 70 mls/hr [id number] IV 07/17/16 22:18 07/17/16 23:35 (D50w (Vial) Inj) 25 ml UNSCH PRN IV PUSH 07/17/16 22:30 (Glucagon Inj) 1 mg UNSCH PRN IM/SQ 07/17/16 22:30 Allergies Allergies Coded Allergies Benazepril (Verified Allergy, Severe, 02/14/16) Cipro (Verified Allergy, Severe, 02/14/16) Ibuprofen (Verified Allergy, Unknown, 07/17/16) Contrast Media (Verified Adverse Reaction, Unknown, 02/14/16) Exam I&O / VS 07/17/16 07/17/16 07/18/16 15:00 23:00 07:00 Intake Total 1340 ml Output Total 550 ml 1150 ml Balance -550 ml 190 ml Intake Oral 500 ml IV Total 840 ml Output Urine Total 550 ml 1150 ml # Voids 1 Vital Signs Date Time Temp Pulse Resp B/P Pulse Ox O2 Delivery O2 Flow Rate FiO2 07/18/16 08:00 98.2 94 15 164/108 94 07/18/16 07:00 85 07/18/16 06:00 93 07/18/16 05:00 84 07/18/16 04:00 84 07/18/16 03:30 90 16 152/111 96 07/18/16 03:00 84 07/18/16 02:00 88 07/18/16 01:00 86 07/18/16 00:00 90 07/17/16 23:45 87 16 155/106 97 07/17/16 23:00 79 07/17/16 22:00 94 07/17/16 21:00 88 07/17/16 20:00 92 07/17/16 19:50 98.0 93 16 152/107 97 07/17/16 19:00 87 07/17/16 17:07 97.8 95 14 109/65 100 07/17/16 15:17 83 07/17/16 13:49 98.0 76 18 159/108 98 07/17/16 12:13 98.0 88 18 148/109 98 07/17/16 11:25 69 16 151/105 97 07/17/16 09:45 65 20 142/89 98 Exam Comments alert, speech mild dysarthria. He does have left sided visual spatial neglect CN the left upper motor neuron 7 deficit has resolved. MOTOR---4/5 strength Left deltoid, biceps, triceps. 1/5 left surgical aide 4-/5 left iliopsoas, 5/5 left quadriceps, 4/5 left hamstring and tibialis anterior. Objective Radiology Results MRA carotids in neck is pending Micro and Labs Laboratory Tests Test 07/18/16 06:28 Triglycerides Level 87 Cholesterol Level 111 LDL Cholesterol 63 HDL Cholesterol 31.1 Cholesterol/HDL Ratio 3.56 Diagnostic Tests ECHO cardiogram--normal EF and LV function. no pericardial effusion Quang South PhD Jul 18, 2016 09:26
[2016-07-18] MEDS ORDERED: INFLUENZA VIRUS VACCINE (QUADRIVALENT) 0.5 ML SYR IM ONE (10:00)
--- NOTE | 2016-07-18 10:24 | HHI.PR ---
Subjective Remarks Pt continues with Left sided weakness, but improved from admission. Pt had some agitation overnight requiring Klonopin Objective Vitals Vital Signs Date Time Temp Pulse Resp B/P Pulse Ox O2 Delivery O2 Flow Rate FiO2 07/18/16 09:00 88 07/18/16 08:00 98.2 94 15 164/108 94 07/18/16 08:00 90 07/18/16 07:00 85 07/18/16 06:00 93 07/18/16 05:00 84 07/18/16 04:00 84 07/18/16 03:30 90 16 152/111 96 07/18/16 03:00 84 07/18/16 02:00 88 07/18/16 01:00 86 07/18/16 00:00 90 07/17/16 23:45 87 16 155/106 97 07/17/16 23:00 79 07/17/16 22:00 94 07/17/16 21:00 88 07/17/16 20:00 92 07/17/16 19:50 98.0 93 16 152/107 97 07/17/16 19:00 87 07/17/16 17:07 97.8 95 14 109/65 100 07/17/16 15:17 83 07/17/16 13:49 98.0 76 18 159/108 98 07/17/16 12:13 98.0 88 18 148/109 98 07/17/16 11:25 69 16 151/105 97 07/17/16 07/17/16 07/18/16 15:00 23:00 07:00 Intake Total 1340 ml Output Total 550 ml 1150 ml Balance -550 ml 190 ml Intake Oral 500 ml IV Total 840 ml Output Urine Total 550 ml 1150 ml # Voids 1 Result Diagram: 07/17/1672407/17/16724 Imaging Last Impressions Head CT 07/17/16745 Signed Impressions: Service Date/Time: Sunday, July 17, 2016 07:55 - CONCLUSION: No acute intracranial abnormality. Chronic white matter changes. Michael Treviño MD Chest X-Ray 07/17/16745 Signed Impressions: Service Date/Time: Sunday, July 17, 2016 07:44 - CONCLUSION: No evidence of acute cardiopulmonary disease. Michael Treviño MD Head Magnetic Resonance Angiography 07/17/16 0000 Signed Impressions: Service Date/Time: Sunday, July 17, 2016 10:01 - CONCLUSION: Normal intracranial MRA. Michael Treviño MD Carotid Artery Ultrasound 07/17/16 0000 Signed Impressions: Service Date/Time: Sunday, July 17, 2016 13:48 - CONCLUSION: Moderate atherosclerosis of both carotid bifurcations again noted, similar to before. No grayscale or Doppler evidence of hemodynamically significant narrowing. Michael Treviño MD Brain MRI 07/17/16 0000 Signed Impressions: Service Date/Time: Sunday, July 17, 2016 10:01 - CONCLUSION: 1. Acute or subacute infarct focally involving the right thalamus. 2. No other acute intracranial abnormality demonstrated. 3. There are moderate to severe chronic bilateral white matter changes. Michael Treviño MD Objective Remarks GENERAL: This is a well-nourished, well-developed patient, in no apparent distress. CARDIOVASCULAR: Regular rate and rhythm without murmurs, gallops, or rubs. RESPIRATORY: Clear to auscultation. Breath sounds equal bilaterally. No wheezes , rales, or rhonchi. GASTROINTESTINAL: Abdomen soft, non-tender, nondistended. Normal active bowel sounds MUSCULOSKELETAL: Extremities without clubbing, cyanosis, or edema. NEURO: A&Ox3 --> but confused at times, LUE 4/5, LLE 4/5 A/P Problem List: (1) Acute CVA (cerebrovascular accident) Status: Acute Plan: - comgmt with Neurology, Dr. South - CT brain (07/17/16) --> NO acute findings - MRI brain (07/17/16) --> right thalmus CVA - MRA brain (07/17/16) --> NO acute findings - B/L carotid US (07/17/16) --> moderate disease, but NO hemodynamically significant stenosis - Carotid US (07/17/16) --> EF 50-55%, no cardiac thrombus noted - Telemetry (07/17/16) NSR - Holter --> pending - LDL (07/18/16) 63 - Continue permissive HTN, will start reigning in BP 07/19/16 - PT, OT - IVFs --> stop in AM 07/19 - ASA - daughter declines plavix d/t previous pericardial effusion when taking plavix - will consult [facility] Fraud Investigator, Dr. Tre Meredith 07/19 for input - MRA neck ordered by Neurology, await results (2) Left hemiplegia Status: Acute Plan: - see above (3) HTN (hypertension) Status: Acute Plan: - hold home BP meds: lisinopril, metoprolol, norvasc (per daughter norvasc had already been stopped prior to this admission) - permissive HTN, start reigning in BP 07/19 (4) Hyperlipidemia Status: Acute Plan: - LDL (07/18/16) 63 - continue statin (5) S/P AVR (aortic valve replacement) Status: Acute Plan: - see HPI (6) S/P mitral valve repair Status: Acute Plan: - see HPI (7) Dilated cardiomyopathy Status: Acute (8) Chronic kidney disease Status: Chronic Plan: - observe (9) Hernandez esophagus Status: Chronic Plan: - PPI (10) Cardiomyopathy Status: Chronic Plan: - EF 35% with hypokinesis on echocardiogram 01/2016 - hold CARY & BB d/t CVA Problem Qualifiers (1) HTN (hypertension): Qualified Code: I10 - Essential hypertension (2) Hyperlipidemia: Qualified Code: E78.5 - Hyperlipidemia, unspecified hyperlipidemia type (3) Chronic kidney disease: Qualified Code: N18.3 - Chronic kidney disease, stage 3 (moderate) (4) Hernandez esophagus: Qualified Code: 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
[2016-07-18] MEDS: 1/2 NS + KCL 20 MEQ INJ 1,000 ML IV SCH ×2 (10:50→22:45)
[2016-07-18] MEDS: SODIUM CHLOR 0.9% 1000 ML INJ 1,000 ML IV SCH (12:36)
[2016-07-18] MEDS ORDERED: ATROPINE SULFATE 1 MG/10 ML SYRINGE ONE (12:39)
[2016-07-18] MEDS ORDERED: EPINEPHrine HCL (1:10,000) 1 MG/10 ML SYRINGE ONE (12:41)
[2016-07-18] MEDS ORDERED: GADOBENATE DIM PF 529 MG/ML 20ML VIAL (for RAD MRI) IV ONE (12:53)
--- NOTE | 2016-07-18 13:42 | RADRPT ---
EXAM DATE/TIME: 07/18/2016 12:51 [facility] COMPARISON: No previous studies available for comparison. INDICATIONS : Left sided weakness. CONTRAST: 20 cc Multihance (gadobenate) IV MEDICAL HISTORY : Hypertension. Hypercholesterolemia. SURGICAL HISTORY : Nephrectomy, right. Aortic, mitral valve replacement. ENCOUNTER: Initial ACUITY: 1 day PAIN SCORE: 0/10 LOCATION: neck Percent stenosis is calculated using the diameter of the stenotic region over the diameter of the nor mal distal internal carotid artery. TECHNIQUE: Bolus infused MRA of the extracranial circulation was performed using a neurovascular coil. Post pro cessing was performed including rotationg subvolume maximum intensity projections of each carotid art leif, rotating full volume maximum intensity projections of both carotid arteries, sagittal and hill l sliding thin slab reformations of each carotid artery, and left oblique sliding thin slab reformati on through the aortic arch to include the origin of the arch branch vessels. FINDINGS: AORTIC ARCH: There is a three vessel origin of the great vessels from the aorta. No evidence of ostial narrowing. RIGHT CAROTID: There is focal plaque at the carotid bulb/proximal internal carotid artery resulting in moderate grad e stenosis (approximately 50%. The common carotid artery is intact. The external carotid artery is i ntact. LEFT CAROTID: Mild plaque of the left carotid bulb. No evidence of significant stenosis. The common carotid artery is intact. The external carotid artery is intact. VERTEBRALS: The vertebral arteries have a symmetric diameter. No stenotic lesions are seen. CONCLUSION: 1. Atherosclerotic disease with focal plaque at the right carotid bulb/proximal right ICA. Moderate g rade stenosis. 2. Mild plaque at the left carotid bulb. Zain Orellana MD on July 18, 2016 at 13:35 Board Certified Radiologist. This report was verified electronically.
[2016-07-18] MEDS: ATORVASTATIN 40 MG TAB PO SCH (23:51)
[2016-07-18] MEDS: SODIUM CHLORIDE 0.9% FLUSH 5 ML FLUSH IVF PRN (23:52)
[2016-07-19] VITALS (13 sets, daily range): BP systolic 143–170; BP diastolic 101–115; PULSE 82–124; RESP 18–23; TEMP 96–99.1; O2SAT 93–99
[2016-07-19] MEDS ORDERED: LORazepam 2 MG/ML VIAL IM/IV SCH (02:00)
--- NOTE | 2016-07-19 02:32 | RADRPT ---
EXAM DATE/TIME: 07/19/2016 02:10 [place] COMPARISON: MRI BRAIN W/O CONTRAST, July 17, 2016, 10:01. CT BRAIN W/O CONTRAST, July 17, 2016, 7:55. INDICATIONS : Trauma; fall. RADIATION DOSE: 56.35 CTDIvol (mGy) MEDICAL HISTORY : Hypertension. Gastroesophageal reflux disease. Hernia, inguinal.Kidney cancer. SURGICAL HISTORY : Hemorrhoidectomy. Nephrectomy, right. ENCOUNTER: Initial ACUITY: 1 day PAIN SCALE: 0/10 LOCATION: cranial TECHNIQUE: Multiple contiguous axial images were obtained of the head. Using automated exposure control and adj ustment of the mA and/or kV according to patient size, radiation dose was kept as low as reasonably a chievable to obtain optimal diagnostic quality images. FINDINGS: CEREBRUM: The ventricles and cortical sulci are widened. There is low density now seen in the right thalamus an d posterior horn of the internal capsule on the right likely relating to an evolving area of infarcti on. This was seen on the prior MRI. No evidence of midline shift or hemorrhage. No extra-axial fluid collections are seen. There is decreased density in the cerebral white matter. POSTERIOR FOSSA: The cerebellum and brainstem are intact. The 4th ventricle is midline. The cerebellopontine angle i s unremarkable. EXTRACRANIAL: The visualized portion of the orbits is intact. SKULL: The calvaria is intact. No evidence of skull fracture. CONCLUSION: 1. Subacute area of infarction in the right thalamus and posterior limb of the internal capsule. 2. Age-related atrophy. 3. Suspected small vessel ischemic change in the white matter. Michael Mendenhall MD on July 19, 2016 at 2:27 Board Certified Radiologist. This report was verified electronically.
[2016-07-19] MEDS: SODIUM CHLOR 0.9% 1000 ML INJ 1,000 ML IV SCH (04:16)
[2016-07-19] MEDS: SODIUM CHLORIDE 0.9% FLUSH 5 ML FLUSH IVF PRN (04:18)
[2016-07-19] MEDS: INSULIN ASPART SUPPLEMENTAL SCALE SQ SCH ×4 (04:24→21:00)
[2016-07-19] MEDS: PANTOPRAZOLE SOD 20 MG DELAYED RELEASE TAB PO SCH (07:58)
[2016-07-19] MEDS: DOCUSATE SODIUM 100 MG CAP PO SCH (07:58)
[2016-07-19] MEDS: SODIUM CHLORIDE 0.9% FLUSH 5 ML FLUSH IVF SCH ×2 (07:58→22:49)
[2016-07-19] MEDS: ASPIRIN 325 MG TAB PO SCH (07:58)
--- NOTE | 2016-07-19 09:09 | HM ---
Date Performed: 07/17/2016 Time Performed: 14:45:00 HOOKUP DATE: 07/17/16 02:45:00 PM Sat ANALYSIS START TIME: 07/17/2016 2:50:00 PM ANALYSIS END TIME: 07/18/2016 12:50:05 PM PATIENT AGE: 75 PATIENT HEIGHT PATIENT WEIGHT: 170 DRUG LIST: room # 239 PATIENT DIAGNOSIS: ACUTE CVA TEST NARRATIVE: The patient's average heart rate was 89 BPM. No episodes of tachycardia wer e noted. No episodes of bradycardia were noted. No pauses exceeding 2.0 seconds were noted. 440 ventricular ectopics, which represented < 1% of the total beat count, were noted. The highest ve ntricular ectopic frequency occurred from 09:00 PM to 10:00 PM Sat. During this time 56 VE(s) occurr ed. Ventricular ectopics were observed as 339 isolated beat(s), as 49 couplet(s) and as 1 run(s). S ome of the ventricular beats occurred in bigeminal cycles. 3 supraventricular ectopics, which rep resented < 1% of the total beat count, were noted. The highest supraventricular ectopic frequency oc curred from 12:00 AM to 01:00 AM Sun. During this time 1 SVE(s) occurred. In channel 1, a single episode of ST depression (defined as -1.0 mm or more) occurred at 08:56:39 AM Sun with a maximum dep ression of -1.6 mm. No episodes of ST depression (defined as -1.0 mm or more) were noted in channel 2. No episodes of ST depression (defined as -1.0 mm or more) were noted in channel 3. NO DIARY MAINT AINED TEST INTERPRETATION: Sinus rhythm and sinus tachycardia Occasional PACs Occasional PVCs in singlets and couplets No atrial fibrillatio n noted Signed by : Eron Ambriz
--- NOTE | 2016-07-19 09:19 | MB ---
cc: ZE YANEZ DATE OF CONSULTATION: 07/19/2016 REASON FOR CONSULTATION Stroke. HISTORY OF PRESENT ILLNESS This is a 75-year-old gentleman who follows with Dr. Meredith in the outpatient setting at [facility] cardiology. He has a complicated past medical history which involves a bioprosthetic aortic valve replacement back on January 13, 2016 in addition to mitral valve repair with an annuloplasty ring. He also has hypertension, hyperlipidemia and chronic kidney disease. His postoperative course was complicated by recurrent pericardial effusion status post CT-guided drainage followed by pericardial window. He was in his usual state of health up until the day of his presentation. At 9:00 p.m. the night before he was seen to be in his usual state of health then came into the emergency department with his daughter with complaints of left-sided weakness. He was found to have both left upper and lower side weakness. Since the time of onset was not clear TPA was not given. At that time it was mentioned that the patient was alert and oriented x3 with no slurring of speech or difficulty swallowing. He was not anticoagulated at that time. He has had a work-up to date which includes MRI, MRA, carotid ultrasound, echocardiogram and CT of the head in addition to pending Holter. He has gained his left-sided strength back, although he is confused this morning in restraints. Permissive hypertension is being done and he is on aspirin PAST MEDICAL HISTORY 1. Aortic valve replacement, bioprosthetic. 2. Mitral valve repair with annuloplasty ring. 3. CT-guided pericardiocentesis followed by surgical drainage and pericardial window on 02/18/2016. 4. History of dilated cardiomyopathy with ejection fraction of 35% on 02/17/2016. 5. Most recent echocardiogram reports low normal ejection fraction at 50-55% performed on 07/17/2016. 6. Hypertension. 7. Chronic kidney disease. 8. Hyperlipidemia. 9. Renal cell cancer status post right nephrectomy. 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 11.Prostate cancer. MEDICATIONS Reported medications at home: 1. Klonopin. 2. Clonazepam. 3. Ambien. 4. Benadryl. 5. Meclizine. 6. Percocet. 7. Tylenol. 8. Metoprolol. 9. Lipitor. 10.Norvasc. 11.Omeprazole. 12.Glucosamine. 13.Colace. 14.Aspirin. ALLERGIES 1. BENAZEPRIL. 2. CIPRO. 3. IBUPROFEN. 4. CONTRAST MEDIA. FAMILY HISTORY Denies any family history of early coronary disease or sudden cardiac . SOCIAL HISTORY He is . He has two children. 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 Never smoker. No drug use. PHYSICAL EXAMINATION VITAL SIGNS: Temperature 96, pulse 80-118, blood pressure 166/113 mmHg. GENERAL: In general he is alert, not oriented, in no acute distress. HEENT: Pupils are reactive to light and accommodation. Extraocular movements are intact. NECK: No jugular venous distension. No thyromegaly or lymphadenopathy. No carotid bruits. LUNGS: Clear to auscultation bilaterally. CARDIOVASCULAR: Regular rhythm, tachycardic. No rubs or gallops. There is a 2/6 systolic murmur at the right sternal border. ABDOMEN: Nontender, nondistended. Good bowel sounds. No hepatosplenomegaly. EXTREMITIES: No clubbing, cyanosis or edema. Good peripheral pulses. NEUROLOGIC: Cranial nerves intact. Motor and sensory grossly intact. LABORATORY WBC 5.1, hemoglobin 10.8. INR is 1. Sodium 141, potassium 3.9, chloride 108, bicarb 27, BUN 23, creatinine 1.66, LDL 31. EKG Electrocardiogram is sinus rhythm. Left ventricular hypertrophy with strain pattern. Two inversions laterally. IMAGING Carotid ultrasound shows moderate bilateral carotid disease, not hemodynamically significant. MRI shows subacute infarct focally involving the right thalamus. ASSESSMENT 1. Stroke, acute. 2. Bioprosthetic aortic valve replacement, mitral valve annuloplasty ring, status post pericardial window. 3. Chronic kidney disease. 4. Hypertension. 5. Nonischemic cardiomyopathy. PLAN The patient seems to be gaining strength back on his left side. He is currently in restraints, able to move the left lower and upper extremities. He is confused now, not oriented to place. Unclear to the etiology of his stroke. I have reviewed telemetry in addition to his Holter monitor. There is no evidence of atrial fibrillation, though he does have underlying valvular heart disease. He has no past medical history of known atrial fibrillation. There is no mention of any intracardiac thrombus or mobile densities on the valves to suggest cardioembolic event. He did have moderate atherosclerosis present in bilateral carotids. I suspect this is most likely atheroembolic rather than cardioembolic. Aspirin and Plavix are likely the best regimen for him, although will discuss with neurology. Can consider an event monitor as an outpatient to rule out atrial fibrillation with potential cause. I reviewed the echocardiogram myself. The prior ejection fraction was 35%, now fully recovered. There is no mention of the bioprosthetic valve on the report, to make sure that there is no obvious embolic source. Agree with permissive hypertension per neurology. MD NEREIDA Kwok/MACK /8:36 AM /8:54 AM MTDAmanda
--- NOTE | 2016-07-19 10:46 | HHI.PR ---
Subjective Remarks restrained overnight due to agitation and fell down. 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 Vital Signs Date Time Temp Pulse Resp B/P Pulse Ox O2 Delivery O2 Flow Rate FiO2 07/19/16 09:50 103 07/19/16 04:55 96.0 118 20 166/113 95 07/19/16 00:00 96.6 109 20 170/115 97 07/18/16 20:41 97.8 115 18 191/105 98 07/18/16 18:00 85 07/18/16 17:00 99.0 86 18 171/115 96 07/18/16 16:00 80 07/18/16 15:00 98.3 85 17 162/113 98 07/18/16 15:00 87 07/18/16 14:00 78 07/18/16 13:00 83 07/18/16 12:00 87 07/18/16 11:00 85 07/18/16 11:00 98.0 90 17 146/102 97 07/18/16 07/18/16 07/19/16 15:00 23:00 07:00 Intake Total 650 ml Output Total 400 ml Balance -400 ml 650 ml IV Total 650 ml Output Urine Total 400 ml # Voids 2 2 Result Diagram: 07/17/1672407/17/16724 Imaging Last Impressions Head CT 07/17/1646 Signed Impressions: Service Date/Time: Sunday, July 17, 2016 07:55 - CONCLUSION: No acute intracranial abnormality. Chronic white matter changes. Michael Treviño MD Chest X-Ray 07/17/1646 Signed Impressions: Service Date/Time: Sunday, July 17, 2016 07:44 - CONCLUSION: No evidence of acute cardiopulmonary disease. Michael Treviño MD Head Magnetic Resonance Angiography 07/17/16 0000 Signed Impressions: Service Date/Time: Sunday, July 17, 2016 10:01 - CONCLUSION: Normal intracranial MRA. Michael Treviño MD Carotid Artery Ultrasound 07/17/16 0000 Signed Impressions: Service Date/Time: Sunday, July 17, 2016 13:48 - CONCLUSION: Moderate atherosclerosis of both carotid bifurcations again noted, similar to before. No grayscale or Doppler evidence of hemodynamically significant narrowing. Michael Treviño MD Brain MRI 07/17/16 0000 Signed Impressions: Service Date/Time: Sunday, July 17, 2016 10:01 - CONCLUSION: 1. Acute or subacute infarct focally involving the right thalamus. 2. No other acute intracranial abnormality demonstrated. 3. There are moderate to severe chronic bilateral white matter changes. Michael Treviño MD A/P Problem List: (1) Acute CVA (cerebrovascular accident) Status: Acute Plan: - CT brain (07/17/16) --> NO acute findings - MRI brain (07/17/16) --> right thalmus CVA - MRA brain (07/17/16) --> NO acute findings - B/L carotid US (07/17/16) --> moderate disease, but NO hemodynamically significant stenosis -MRA carotids. mod right ICA dz - Carotid US (07/17/16) --> EF 50-55%, no cardiac thrombus noted. no effusion - Telemetry (07/17/16) NSR - Holter --> sinus. ectopy. no afib - LDL (07/18/16) 63 -Pt to be seen by cardiology today. Daughter worried about plavix due to prior pericardial bleed/tamponade after valve surgery - neurology already recommended plavix. - no apparent indication for anticoagulation with coumadin or newer agent - PT, OT - d/c IVFs -- - ASA - estefanía discuss with neuro and cardiology and decide on plavix. I discussed with daughter and she was ok just so everyone was in agreement. but we also discussed that there will be some risk of bleeding with any antiplts drug. will check iron panel and stool guiac given low mcv also try to get restraints off. pt takes klonopin at home for anxiety. daughter wants Tariq eval. (2) Left hemiplegia Status: Acute Plan: - see above (3) HTN (hypertension) Status: Acute Plan: - hold home BP meds: lisinopril, metoprolol, norvasc (per daughter norvasc had already been stopped prior to this admission) - permissive HTN, (4) Hyperlipidemia Status: Acute Plan: - LDL (07/18/16) 63 - continue statin (5) S/P AVR (aortic valve replacement) Status: Acute Plan: - see HPI (6) S/P mitral valve repair Status: Acute Plan: - see HPI (7) Dilated cardiomyopathy Status: Acute (8) Chronic kidney disease Status: Chronic Plan: - observe (9) Hernandez esophagus Status: Chronic Plan: - PPI (10) Cardiomyopathy Status: Chronic Plan: - EF 35% with hypokinesis on echocardiogram 01/2016 - hold CARY & BB d/t CVA Problem Qualifiers (1) HTN (hypertension): Qualified Code: I10 - Essential hypertension (2) Hyperlipidemia: Qualified Code: E78.5 - Hyperlipidemia, unspecified hyperlipidemia type (3) Chronic kidney disease: Qualified Code: N18.3 - Chronic kidney disease, stage 3 (moderate) (4) Hernandez esophagus: Qualified Code: 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
[2016-07-19 12:56] LABS: FERRITIN 24 NG/ML (26-388); TRANSFERRIN IRON PROFILE 272 MG/DL (200-360)
--- NOTE | 2016-07-19 19:22 | HHI.PR ---
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 Plan Dr Ambriz's note appreciated. I agree plavix with aspirin would be best antiplatelet regimine Diagnosis/Plan: Subjective Subjective Comments No acute events reported fell last night, head ct stable Active Medications Current Medications Medications (Trade) Dose Ordered Sig/Kirti Route Start Time Stop Time Status Last Admin (Aspirin) 325 mg DAILY PO 07/18/16 08:00 07/19/16 07:58 (Tylenol) 500 mg Q6HR PRN PO 07/17/16 10:15 07/18/16 01:19 (Lipitor) 40 mg HS PO 07/17/16 21:00 07/18/16 23:51 (Colace) 100 mg DAILY PO 07/18/16 09:00 07/19/16 07:58 (Protonix) 20 mg DAILY PO 07/17/16 10:15 07/19/16 07:58 (Percocet 5-325 Mg) 1 tab Q6HR PRN PO 07/17/16 10:15 07/18/16 03:54 (Zofran Inj) 4 mg Q6HR PRN IV PUSH 07/17/16 13:15 07/17/16 13:19 (NS Flush) 2 ml BID IVF 07/18/16 09:00 07/19/16 07:58 (NS Flush) 2 ml UNSCH PRN IVF 07/17/16 22:30 07/19/16 04:18 (D50w (Vial) Inj) 25 ml UNSCH PRN IV PUSH 07/17/16 22:30 (Glucagon Inj) 1 mg UNSCH PRN IM/SQ 07/17/16 22:30 (KlonoPIN) 0.5 mg Q6HR PRN PO 07/18/16 18:00 07/18/16 18:48 Allergies Allergies Coded Allergies Benazepril (Verified Allergy, Severe, 02/14/16) Cipro (Verified Allergy, Severe, 02/14/16) Ibuprofen (Verified Allergy, Unknown, 07/17/16) Contrast Media (Verified Adverse Reaction, Unknown, 02/14/16) Exam I&O / VS 07/18/16 07/18/16 07/19/16 15:00 23:00 07:00 Intake Total 650 ml Output Total 400 ml Balance -400 ml 650 ml IV Total 650 ml Output Urine Total 400 ml # Voids 2 2 Vital Signs Date Time Temp Pulse Resp B/P Pulse Ox O2 Delivery O2 Flow Rate FiO2 07/19/16 18:00 111 07/19/16 17:00 108 07/19/16 16:00 99.1 115 19 147/101 97 07/19/16 16:00 111 07/19/16 16:00 85 07/19/16 16:00 99.1 115 19 147/101 97 07/19/16 14:00 108 07/19/16 13:00 107 07/19/16 12:00 96.3 108 21 159/114 97 07/19/16 12:00 101 07/19/16 11:00 104 07/19/16 10:00 99 07/19/16 09:50 103 07/19/16 08:00 97.2 111 23 158/113 99 07/19/16 04:55 96.0 118 20 166/113 95 07/19/16 00:00 96.6 109 20 170/115 97 07/18/16 20:41 97.8 115 18 191/105 98 Exam Comments alert, speech mild dysarthria. left sided visual spatial neglect resolving CN the left upper motor neuron 7 deficit has resolved. MOTOR---4+/5 strength Left deltoid, biceps, triceps. 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 Objective Micro and Labs Laboratory Tests Test 07/19/16 11:42 Iron Level 26 Total Iron Binding Capacity 381 Percent Iron Saturation 6.8 Ferritin 24 Vitamin B12 Level 481 Date/Time Procedure Status Source Growth 07/19/16 19:05 Stool Occult Blood (GORAN) Received Stool Stool Pending Quang South PhD MD Jul 19, 2016 19:22
[2016-07-19] MEDS ORDERED: METOPROLOL TARTRATE 25 MG TAB PO SCH (21:00)
[2016-07-19] MEDS: clonazePAM 0.5 MG TAB PO PRN (22:48)
[2016-07-19] MEDS: ATORVASTATIN 40 MG TAB PO SCH (22:48)
[2016-07-20] VITALS (8 sets, daily range): BP systolic 109–156; BP diastolic 81–110; PULSE 68–120; RESP 16–20; TEMP 95.8–99.3; O2SAT 95–98
[2016-07-20] MEDS: INSULIN ASPART SUPPLEMENTAL SCALE SQ SCH ×3 (05:42→16:00)
--- NOTE | 2016-07-20 07:57 | PD.CARD.PN ---
Subjective Subjective Remarks denies any CV complaints. Tele shows ST (Cristino Robertson) Objective Vital Signs / I&O Vital Signs Date Time Temp Pulse Resp B/P Pulse Ox O2 Delivery O2 Flow Rate FiO2 07/20/16 04:00 96.4 68 20 156/109 95 07/20/16 00:00 97.1 120 20 135/95 96 07/19/16 20:00 97.0 124 18 143/103 93 07/19/16 18:00 111 07/19/16 17:00 108 07/19/16 16:00 99.1 115 19 147/101 97 07/19/16 16:00 111 07/19/16 16:00 85 07/19/16 16:00 99.1 115 19 147/101 97 07/19/16 14:00 108 07/19/16 13:00 107 07/19/16 12:00 96.3 108 21 159/114 97 07/19/16 12:00 101 07/19/16 11:00 104 07/19/16 10:00 99 07/19/16 09:50 103 07/19/16 08:00 97.2 111 23 158/113 99 I/O 07/19/16 07/19/16 07/19/16 07/20/16 07/20/16 07/20/16 07:00 15:00 23:00 07:00 15:00 23:00 Intake Total 650 ml 450 ml 650 ml 200 ml Output Total 700 ml Balance 650 ml 450 ml 650 ml -500 ml Intake Oral 450 ml 650 ml 200 ml IV Total 650 ml Output Urine Total 700 ml # Voids 2 3 2 # Bowel Movements 2 1 Physical Exam GENERAL: Well-nourished, well-developed patient in no apparent distress. NECK: No JVD. No carotid bruit. CARDIOVASCULAR: Regular rhythm. tachycardia, S1/S2 no murmur, rub, or gallop. RESPIRATORY: No accessory muscle use. Clear to auscultation. Breath sounds equal bilaterally. GASTROINTESTINAL: Abdomen soft, non-tender, nondistended. MUSCULOSKELETAL: Extremities without clubbing, cyanosis, or edema. Laboratory Laboratory Tests Test 07/19/16 11:42 Iron Level 26 MCG/DL Total Iron Binding Capacity 381 MCG/DL Percent Iron Saturation 6.8 % Ferritin 24 NG/ML Vitamin B12 Level 481 PG/ML (Cristino Robertson) Assessment and Plan Problem List: (1) Acute CVA (cerebrovascular accident) (2) HTN (hypertension) (3) Dilated cardiomyopathy (4) Mitral regurgitation (5) Aortic insufficiency Assessment and Plan CVA - likely atheroembolic, neuro agrees with Plavix and ASA Continue permissive HTN consider event monitoer as outpatient to r/o a-fib. Sign off (Cristino Robertson ) Assessment and Plan agree with above asa plavix bb when appropriate (permissive HTN) call with further questions FU Dr. Meredith in OPD (Eron Ambriz MD) Problem Qualifiers (1) HTN (hypertension): Qualified Code: I10 - Essential hypertension Cristino Robertson Jul 20, 2016 07:57 Eron Ambriz MD Jul 20, 2016 08:15
[2016-07-20] MEDS ORDERED: CLOPIDOGREL 75 MG TAB PO SCH (09:00)
[2016-07-20] MEDS: ASPIRIN 325 MG TAB PO SCH (09:55)
[2016-07-20] MEDS: DOCUSATE SODIUM 100 MG CAP PO SCH (09:55)
[2016-07-20] MEDS: PANTOPRAZOLE SOD 20 MG DELAYED RELEASE TAB PO SCH (09:55)
[2016-07-20] MEDS: SODIUM CHLORIDE 0.9% FLUSH 5 ML FLUSH IVF SCH (09:58)
--- NOTE | 2016-07-20 10:02 | HHI.PR ---
Subjective Remarks more oriented today. out of restraint currently. Objective Vitals more oriented. heart reg lung cta abd s/nt ext no edema Vital Signs Date Time Temp Pulse Resp B/P Pulse Ox O2 Delivery O2 Flow Rate FiO2 07/20/16 08:00 96.9 109 20 146/110 97 07/20/16 04:00 96.4 68 20 156/109 95 07/20/16 00:00 97.1 120 20 135/95 96 07/19/16 20:00 97.0 124 18 143/103 93 07/19/16 18:00 111 07/19/16 17:00 108 07/19/16 16:00 99.1 115 19 147/101 97 07/19/16 16:00 111 07/19/16 16:00 85 07/19/16 16:00 99.1 115 19 147/101 97 07/19/16 14:00 108 07/19/16 13:00 107 07/19/16 12:00 96.3 108 21 159/114 97 07/19/16 12:00 101 07/19/16 11:00 104 07/19/16 07/19/16 07/20/16 15:00 23:00 07:00 Intake Total 450 ml 650 ml 200 ml Output Total 700 ml Balance 450 ml 650 ml -500 ml Intake Oral 450 ml 650 ml 200 ml Output Urine Total 700 ml # Voids 3 2 # Bowel Movements 2 1 Result Diagram: 07/17/1672407/17/16724 Imaging Last Impressions Head CT 07/17/1646 Signed Impressions: Service Date/Time: Sunday, July 17, 2016 07:55 - CONCLUSION: No acute intracranial abnormality. Chronic white matter changes. Michael Treviño MD Chest X-Ray 07/17/1646 Signed Impressions: Service Date/Time: Sunday, July 17, 2016 07:44 - CONCLUSION: No evidence of acute cardiopulmonary disease. Michael Treviño MD Head Magnetic Resonance Angiography 07/17/16 0000 Signed Impressions: Service Date/Time: Sunday, July 17, 2016 10:01 - CONCLUSION: Normal intracranial MRA. Michael Treviño MD Carotid Artery Ultrasound 07/17/16 0000 Signed Impressions: Service Date/Time: Sunday, July 17, 2016 13:48 - CONCLUSION: Moderate atherosclerosis of both carotid bifurcations again noted, similar to before. No grayscale or Doppler evidence of hemodynamically significant narrowing. Michael Trevioñ MD Brain MRI 07/17/16 0000 Signed Impressions: Service Date/Time: Sunday, July 17, 2016 10:01 - CONCLUSION: 1. Acute or subacute infarct focally involving the right thalamus. 2. No other acute intracranial abnormality demonstrated. 3. There are moderate to severe chronic bilateral white matter changes. Michael Treviño MD A/P Problem List: (1) Acute CVA (cerebrovascular accident) Status: Acute Plan: - CT brain (07/17/16) --> NO acute findings - MRI brain (07/17/16) --> right thalmus CVA - MRA brain (07/17/16) --> NO acute findings - B/L carotid US (07/17/16) --> moderate disease, but NO hemodynamically significant stenosis -MRA carotids. mod right ICA dz - Carotid US (07/17/16) --> EF 50-55%, no cardiac thrombus noted. no effusion - Telemetry (07/17/16) NSR - Holter --> sinus. ectopy. no afib - LDL (07/18/16) 63 -Pt to be seen by cardiology today. Daughter worried about plavix due to prior pericardial bleed/tamponade after valve surgery - neurology already recommended plavix. - no apparent indication for anticoagulation with coumadin or newer agent - PT, OT Pt seen by neuro and cardiology. recommendation is for asa//plavix. attempt off restraints today and get to snf/rehab by tomorrow. increase oob iron def noted. guiac neg. initiate some oral iron. addendum: on review of outpt records. stopped norvasc in March and per cardiology note stop metoprolol in April and try lisinipril for bp. - will need to monitor bp in rehab and resume low dose bp med as tolerated over next 3-5 days. (2) Left hemiplegia Status: Acute Plan: - see above (3) HTN (hypertension) Status: Acute Plan: see above. (4) Hyperlipidemia Status: Acute Plan: - LDL (07/18/16) 63 - continue statin (5) S/P AVR (aortic valve replacement) Status: Acute Plan: - see HPI (6) S/P mitral valve repair Status: Acute Plan: - see HPI (7) Dilated cardiomyopathy Status: Acute (8) Chronic kidney disease Status: Chronic Plan: - observe (9) Hernandez esophagus Status: Chronic Plan: - PPI (10) Cardiomyopathy Status: Chronic Plan: - EF 35% with hypokinesis on echocardiogram 01/2016 - hold CARY & BB d/t CVA Problem Qualifiers (1) HTN (hypertension): Qualified Code: I10 - Essential hypertension (2) Hyperlipidemia: Qualified Code: E78.5 - Hyperlipidemia, unspecified hyperlipidemia type (3) Chronic kidney disease: Qualified Code: N18.3 - Chronic kidney disease, stage 3 (moderate) (4) Hernandez esophagus: Qualified Code: 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
--- NOTE | 2016-07-20 12:44 | HHI.PR ---
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 Plan continue plavix and asa ok from neuro standpoint to discharge to rehab when ok with primary service. Diagnosis/Plan: Subjective Subjective Comments No acute events reported motor skills improving Active Medications Current Medications Medications (Trade) Dose Ordered Sig/Kirti Route Start Time Stop Time Status Last Admin (Aspirin) 325 mg DAILY PO 07/18/16 08:00 07/20/16 09:55 (Tylenol) 500 mg Q6HR PRN PO 07/17/16 10:15 07/18/16 01:19 (Lipitor) 40 mg HS PO 07/17/16 21:00 07/19/16 22:48 (Colace) 100 mg DAILY PO 07/18/16 09:00 07/20/16 09:55 (Protonix) 20 mg DAILY PO 07/17/16 10:15 07/20/16 09:55 (Percocet 5-325 Mg) 1 tab Q6HR PRN PO 07/17/16 10:15 07/18/16 03:54 (Zofran Inj) 4 mg Q6HR PRN IV PUSH 07/17/16 13:15 07/17/16 13:19 (NS Flush) 2 ml BID IVF 07/18/16 09:00 07/20/16 09:58 (NS Flush) 2 ml UNSCH PRN IVF 07/17/16 22:30 07/19/16 04:18 (D50w (Vial) Inj) 25 ml UNSCH PRN IV PUSH 07/17/16 22:30 (Glucagon Inj) 1 mg UNSCH PRN IM/SQ 07/17/16 22:30 (KlonoPIN) 0.5 mg Q6HR PRN PO 07/18/16 18:00 07/19/16 22:48 (Plavix) 75 mg DAILY PO 07/20/16 09:00 07/20/16 09:56 (Ferrous Sulfate) 325 mg BID@ PO 07/20/16 12:00 Allergies Allergies Coded Allergies Benazepril (Verified Allergy, Severe, 02/14/16) Cipro (Verified Allergy, Severe, 02/14/16) Ibuprofen (Verified Allergy, Unknown, 07/17/16) Contrast Media (Verified Adverse Reaction, Unknown, 02/14/16) Exam I&O / VS 207/19/16 07/20/16 15:00 23:00 07:00 Intake Total 450 ml 650 ml 200 ml Output Total 700 ml Balance 450 ml 650 ml -500 ml Intake Oral 450 ml 650 ml 200 ml Output Urine Total 700 ml # Voids 3 2 # Bowel Movements 2 1 Vital Signs Date Time Temp Pulse Resp B/P Pulse Ox O2 Delivery O2 Flow Rate FiO2 07/20/16 12:31 96.1 101 20 110/83 98 07/20/16 10:24 98.3 107 16 127/94 98 07/20/16 08:00 96.9 109 20 146/110 97 07/20/16 04:00 96.4 68 20 156/109 95 07/20/16 00:00 97.1 120 20 135/95 96 07/19/16 20:00 97.0 124 18 143/103 93 07/19/16 18:00 111 07/19/16 17:00 108 07/19/16 16:00 99.1 115 19 147/101 97 07/19/16 16:00 111 07/19/16 16:00 85 07/19/16 16:00 99.1 115 19 147/101 97 07/19/16 14:00 108 07/19/16 13:00 107 Exam Comments alert, speech mild dysarthria. left sided visual spatial neglect resolving CN the left upper motor neuron 7 deficit has resolved. MOTOR---5/5 strength Left deltoid, biceps, triceps. 5/5 left gore seamer 5/5 left iliopsoas, 5/5 left quadriceps, 4/5 left hamstring and tibialis anterior. Objective Micro and Labs Date/Time Procedure Status Source Growth 07/19/16 19:05 Stool Occult Blood (GORAN) - Final Complete Stool Stool HEMOCCULT NEGATIVE Quang South PhD Jul 20, 2016 12:44
[2016-07-20] MEDS: FERROUS SULFATE 325 MG (65 MG ELEMENTAL IRON) TAB PO SCH ×2 (13:32→17:07)
--- NOTE | 2016-07-20 14:35 | HHI.DCPOC ---
Discharge Care Plan Diagnosis: (1) Acute CVA (cerebrovascular accident) (2) Iron deficiency Goals to Promote Your Health * To prevent worsening of your condition and complications * To maintain your health at the optimal level Directions to Meet Your Goals Take your medications as prescribed Follow your dietary instruction Follow activity as directed Keep your appointments as scheduled Take your immunizations and boosters as scheduled If your symptoms worsen call your PCP, if no PCP go to Urgent Care Center or Emergency Room Smoking is Dangerous to Your Health. Avoid second hand smoke Call the 24-hour hour crisis hotline for domestic abuse at Bradford Lee MD Jul 20, 2016 14:35
[2016-07-20] MEDS ORDERED: PLAV75TA29 PO (14:39)
[2016-07-20] MEDS ORDERED: FERR325T PO (14:39)
[2016-08-05] MEDS ORDERED: GETGO ROLLING W1 MI1 (15:37)
[2016-08-05] MEDS ORDERED: WHEEMIS3 (15:37)
[2016-08-05] MEDS ORDERED: COMMODE 3-IN-11 MIS (15:37)
[2016-08-11] MEDS ORDERED: PANT20 PO (09:19)
[2016-08-11] MEDS ORDERED: THERTAB15 PO (09:19)
[2016-08-11] MEDS ORDERED: FERR325T PO (09:19)
[2016-08-11] MEDS ORDERED: DOCU1CAP39 PO (09:19)
[2016-08-11] MEDS ORDERED: METO25TA3 PO (09:19)
[2016-08-11] MEDS ORDERED: APIX5TAB PO (09:19)
[2016-08-11] MEDS ORDERED: MELA1TAB22 PO (09:19)
[2016-08-11] MEDS ORDERED: LIPI40TA PO (09:19)
[2016-08-11] MEDS ORDERED: NITR0.4S SL (09:19)
[2016-08-11] MEDS ORDERED: LOTR15T TOPICAL (09:19)
--- NOTE | 2016-08-26 20:20 | HHI.DS ---
Discharge Summary Admission Date Jul 17, 2016 at 08:58 Discharge Date: Jul 20, 2016 Admitting Diagnosis acute CVA (1) Acute CVA (cerebrovascular accident) Diagnosis: Principal (2) Left hemiplegia Diagnosis: Principal (3) HTN (hypertension) Diagnosis: Secondary (4) Hyperlipidemia Diagnosis: Secondary (5) S/P AVR (aortic valve replacement) Diagnosis: Secondary (6) S/P mitral valve repair Diagnosis: Secondary (7) Dilated cardiomyopathy Diagnosis: Secondary (8) Chronic kidney disease Diagnosis: Secondary (9) Hernandez esophagus Diagnosis: Secondary (10) Cardiomyopathy Diagnosis: Secondary Brief History Pt is a pleasant 75 y/o M with h/o HTN, hyperlipidemia, CKD, s/p AV replacement by [employer] Trifecta 01/13/16 and s/p MV repair by annuloplasy with [facility] [facility] Ring. Pt required readmission for pericardial effusion and underwent CT guided drainage by IR. Pt was then readmitted 02/13 - 02/17/17 with recurrent pericardial effusion with tamponade physiology. Pt was taken back to the OR by Dr. Michelle Velasco and underwent surgical drainage of pericardial effusion via pericardial window. Pt now present to the [place] ER (07/17/16) with c/o left sided weakness. Per ER physician JOSUE 2/5 upon arrival and remains 2/5, but LLE 2/5 upon arrival and now 3/5. At the time of my visit muscle strength was 4/5 at LLE and LUE with rightward gaze. Pt was last seen normal by his daughter at 9PM last night. Exact timing of onset of symptoms is unclear. ER physician discussed the case with Neurology, Dr. South, and it was decided NOT to give tPA. Pt is A&OX3. There is NO slurred speech, [place]ST[place]ALL, or difficulty swallowing. Pt does NOT have mechanical valves. Pt is NOT anticoagulated. Pt has complex PMH, but NO h/o TIA or CVA. CT brain (07/17/16) did NOT show hemorrhage. History obtain by discussion with pt, daughter, ER physician. Records were reviewed in [facility] E[facility]. Hospital Course Pt presented with left hemiplegia. He was improviing from a motor standpoint and confusion improved. - CT brain (07/17/16) --> NO acute findings - MRI brain (07/17/16) --> right thalmus CVA - MRA brain (07/17/16) --> NO acute findings - B/L carotid US (07/17/16) --> moderate disease, but NO hemodynamically significant stenosis -MRA carotids. mod right ICA dz - Carotid US (07/17/16) --> EF 50-55%, no cardiac thrombus noted. no effusion - Telemetry (07/17/16) NSR - Holter --> sinus. ectopy. no afib - LDL (07/18/16) 63 -Pt to be seen by cardiology today. Daughter worried about plavix due to prior pericardial bleed/tamponade after valve surgery - neurology already recommended plavix. - no apparent indication for anticoagulation with coumadin or newer agent - PT, OT Pt seen by neuro and cardiology. recommendation is for asa//plavix. attempt off restraints today and get to snf/rehab by tomorrow. increase oob iron def noted. guiac neg. initiate some oral iron. addendum: on review of outpt records. stopped norvasc in March and per cardiology note stop metoprolol in April and try lisinipril for bp. - will need to monitor bp in rehab and resume low dose bp med as tolerated over next 3-5 days. Pt Condition on Discharge: Stable Discharge Disposition: Rehab Inpatient Discharge Instructions DIET: Follow Instructions for: Heart Healthy Diet Activities you can perform: Regular-No Restrictions Follow up Referrals: Cardiology - [address] vila Neurology - 2 Weeks with Quang South PhD PCP Follow-up - [address] burns New Medications: Clopidogrel (Plavix) 75 Mg Tab 75 MG PO DAILY cva #30 Ref 6 TAB Continued Medications: Aspirin (Aspirin Adult Low Strength) 81 Mg Tabdr 81 MG PO DAILY TAB Clonazepam (Clonazepam) 0.5 Mg Tab 0.25-0.5 MG PO BID Take daily as needed for anxiety or at bedtime as needed for insomnia PRN INSOMNIA OR ANXIETY #60 Ref 0 TAB Docusate Sodium (Colace) 100 Mg Cap 100 MG PO DAILY Constipation #60 Ref 0 CAP Glucosamine-Chondroitin (Glucosamine-Chondroitin) Unknown Strength Tab 1 TAB PO DAILY TAB Meclizine (Meclizine) 12.5 Mg Tab 12.5 MG PO Q8HR PRN VERTIGO Ref 0 TAB Oxycodone-Acetaminophen (Percocet) 5-325 mg Tab 0.5-1 TAB PO Q6HR PRN PAIN Ref 0 TAB Zolpidem (Ambien) 5 Mg Tab 5 MG PO HS PRN INSOMNIA Ref 0 TAB Discontinued Medications: Acetaminophen (Tylenol Extra Strength) 500 Mg Tab 500 MG PO Q6HR PRN PAIN/FEVER Ref 0 TAB Diphenhydramine (Benadryl Allergy) 25 Mg Tab 25 MG PO HS PRN INSOMNIA Ref 0 TAB Lisinopril (Lisinopril) 20 Mg Tab 20 MG PO DAILY #30 Ref 0 TAB Metoprolol Tartrate (Metoprolol Tartrate) 25 Mg Tab 50 MG PO BID #60 Ref 0 TAB Bradford Lee MD Aug 26, 2016 20:20
== END 2016-07-20 21:01 | DRG 65 ==
LOC: NEPE 07:31 → NEDA 08:58 → HCIN 11:42 → N05B 07-18 17:05
PROVIDERS: ADMIT Hospitalist; ATTEND Hospitalist
DX: I63.9 Cerebral infarction, unspecified (principal); G81.94 Hemiplegia, unspecified affecting left nondominant side; I42.0 Dilated cardiomyopathy; N18.3 Chronic kidney disease, stage 3 (moderate); H53.462 Homonymous bilateral field defects, left side; K22.719 Barrett's esophagus with dysplasia, unspecified; E78.5 Hyperlipidemia, unspecified; G51.0 Bell's palsy; E78.00 Pure hypercholesterolemia, unspecified; K21.9 Gastro-esophageal reflux disease without esophagitis; I12.9 Hypertensive chronic kidney disease with stage 1 through stage 4 chronic kidney disease, or unspecified chronic kidney disease; Z85.528 Personal history of other malignant neoplasm of kidney; Z85.46 Personal history of malignant neoplasm of prostate; Z88.6 Allergy status to analgesic agent; Z88.1 Allergy status to other antibiotic agents; Z91.041 Radiographic dye allergy status; Z92.3 Personal history of irradiation; Z90.5 Acquired absence of kidney; Z95.3 Presence of xenogenic heart valve; Z79.82 Long term (current) use of aspirin; Z78.1 Physical restraint status; Z79.01 Long term (current) use of anticoagulants; I08.0 Rheumatic disorders of both mitral and aortic valves
CPT/HCPCS: 70450; 70544; 70548; 70551; 71010; 80053; 80061; 81001; 82272; 82550; 82607; 82728; 82948; 83036; 83540; 83550; 84484; 85025; 85610; 85730; 93005; 93225; 93226; 93306; 93880; 96360; A9577; J0171; J0461; J2405; J7030; J7050

== ENCOUNTER 2017-02-09 11:57 | Emergency (ER) | payer MEDICARE ==
[~2017-02-09] VITALS: Ht 180.3 cm; Wt 85.0 kg
[~2017-02-09 11:57] MED LIST changes: +AMBI5TAB PO; +APIX5TAB PO; +ASPI1TAB91 PO; -ASPI81 CHEW; -ATOR40TA PO; +COMMODE 3-IN-11 MIS; +FERR325T PO; +GETGO ROLLING W1 MI1; +LIPI40TA PO; +LOTR15T TOPICAL; +MELA1TAB22 PO; +METO25TA3 PO; -METO50TA PO; -MULT1TAB46 PO; -NIGH25TA PO; +NITR0.4S SL; +PANT20 PO; +PLAV75TA29 PO; +THERTAB15 PO; +WHEEMIS3; -ZOLP5TAB3 PO
[2017-02-09 12:01] VITALS: BP 161/109; PULSE 66; RESP 20; TEMP 97.7; O2SAT 95
[2017-02-09 13:15] VITALS: BP 145/93; PULSE 87; RESP 18; O2SAT 96
[2017-02-09] MEDS ORDERED: SODIUM CHLORIDE 0.9% FLUSH 10 ML FLUSH IVF PRN (13:15)
[2017-02-09 13:44] VITALS: O2SAT 96
[2017-02-09 13:51] LABS: AUTOMATED NEUTROPHIL # 2.9 TH/MM3 (1.8-7.7); BASOPHIL # 0.1 TH/MM3 (0-0.2); BASOPHIL % 1.3 % (0.0-2.0); EOSINOPHIL # 0.1 TH/MM3 (0-0.4); EOSINOPHIL % 2.6 % (0.0-4.0); HEMATOCRIT 42.5 % (39.0-51.0); HEMO FLAGS DIFF FINAL; LYMPH % 20.4 % (9.0-44.0); LYMPHOCYTE # 0.9 TH/MM3 (1.0-4.8); MEAN CELL VOLUME 94.2 FL (80.0-100.0); MEAN CORPUSCULAR HEMOGLOBIN 32.3 PG (27.0-34.0); MEAN CORPUSCULAR HGB CONC 34.3 % (32.0-36.0); MONO % 7.7 % (0.0-8.0); PLATELET COUNT 131 TH/MM3 (150-450); RED BLOOD COUNT 4.51 MIL/MM3 (4.50-5.90); RED CELL DISTRIBUTION WIDTH 12.4 % (11.6-17.2); WHITE BLOOD COUNT 4.2 TH/MM3 (4.0-11.0)
[2017-02-09 13:58] LABS: BLOOD, URINE NEG (NEG); COMMENT (UR) CATH-CULT NOT IND; CULTURE IF INDICATED CATH CULTURE NOT IND; GLUCOSE,URINE NEG (NEG); KETONE, URINE NEG (NEG); NITRITE,URINE NEG (NEG); PH, URINE 5.5 (5.0-8.5); URINE COLOR LIGHT-YELLOW (YELLW/STRAW)
[2017-02-09 14:05] LABS: ANION GAP 7 MEQ/L (5-15); AST (GOT) 23 U/L (15-37); BICARBONATE 23.1 MEQ/L (21.0-32.0); BLOOD UREA NITROGEN 18 MG/DL (7-18); CHLORIDE 109 MEQ/L (98-107); GLOMERULAR FILTRATION RATE 47 ML/MIN (>89); SODIUM (NA) 139 MEQ/L (136-145)
[2017-02-09 14:09] LABS: ALKALINE PHOSPHATASE 62 U/L (45-117); ALT (GPT) 24 U/L (12-78); TOTAL BILIRUBIN ADULT 0.6 MG/DL (0.2-1.0)
[2017-02-09] MEDS ORDERED: SODIUM CHLOR 0.9% 1000 ML INJ 1,000 ML IV ONE (14:15)
--- NOTE | 2017-02-09 14:24 | PD ---
HPI Chief Complaint: Hypertension Time Seen by Provider: 12:44 Travel History International Travel<30 days: No Contact w/Intl Traveler<30days: No Traveled to known affect area: No History of Present Illness HPI Patient is a 76-year-old male brought in by his daughter for evaluation of hypertension. Patient was 156/109 this morning before he took his medications. He was given his morning medication at 6:00 and daughter states after his nap this morning his diastolic remained elevated so she brought him to the emergency department for evaluation. Daughter states that he reported feeling dizzy yesterday and this morning but he has no complaints at this time. Patient had a stroke back in June and has residual left-sided weakness. He reports that he has intermittent numbness in his left arm occasionally he did experience this yesterday as well. He has no complaints of headache, chest pain , shortness of breath, abdominal pain, nausea, vomiting, weakness. Daughter denies any slurred speech or behavioral changes. PFSH Past Medical History Hx Anticoagulant Therapy: Yes Arthritis: No Asthma: No Autoimmune Disease: No Anxiety: Yes Depression: No Cancer: Yes (Kidney, prostate) Cardiovascular Problems: Yes High Cholesterol: Yes Chemotherapy: No Chest Pain: No Congestive Heart Failure: No COPD: No Cerebrovascular Accident: Yes Diabetes: No Diminished Hearing: No Endocrine: No Gastrointestinal Disorders: No GERD: Yes Glaucoma: No Genitourinary: Yes (right kidney removal) Headaches: No Hepatitis: No Hiatal Hernia: No Heparin Induced Thrombocytopen: No Hypertension: Yes Immune Disorder: No Inguinal Hernia: Yes Implanted Vascular Access Dvce: Yes Kidney Stones: No Musculoskeletal: No Neurologic: No Psychiatric: No Reproductive: No Respiratory: No Integumentary: No Migraines: No Radiation Therapy: Yes Renal Failure: No Seizures: No Sickle Cell Disease: No Sleep Apnea: No Thyroid Disease: No Ulcer: No ?: Not Past Surgical History Abdominal Surgery: Yes (INGUINAL HERNIA, HEMORRHOIDECTOMY) AICD: No Arteriovenous Shunt: No Cardiac Surgery: Yes (Bypass) Ear Surgery: No Endocrine Surgery: Yes (Right kidney removed for CA) Eye Surgery: No (bilat cataracts) Genitourinary Surgery: Yes (Hernia repair, Hemoroids) Gynecologic Surgery: No Insulin Pump: No Joint Replacement: No Neurologic Surgery: No Oral Surgery: No Pacemaker: No Thoracic Surgery: No Valve Replacement: Yes (AORTIC VALVE, MITRAL VALVE RING) Other Surgery: Yes Social History Alcohol Use: Yes (OCCASIONAL) Tobacco Use: No Substance Use: No Allergies-Medications (Allergen,Severity, Reaction): Coded Allergies: benazepril (Unverified Allergy, Severe, 01/11/17) ciprofloxacin (Unverified Allergy, Severe, 01/11/17) ibuprofen (Unverified Allergy, Unknown, 01/11/17) diatrizoate meglumine (Unverified Adverse Reaction, Unknown, 01/11/17) Pt has one Kidney gadobenic acid (Unverified Adverse Reaction, Unknown, 01/11/17) Pt has one Kidney gadodiamide (Unverified Adverse Reaction, Unknown, 01/11/17) Pt has one Kidney gadoteridol (Unverified Adverse Reaction, Unknown, 01/11/17) Pt has one Kidney iodixanol (Unverified Adverse Reaction, Unknown, 01/11/17) Pt has one Kidney iohexol (Unverified Adverse Reaction, Unknown, 01/11/17) Pt has one Kidney Reported Meds & Prescriptions Reported Meds & Active Scripts Active Protonix (Pantoprazole Sodium) 20 Mg Tab 20 Mg PO DAILY 30 Days Nitrostat SL (Nitroglycerin) 0.4 Mg Subl 0.4 Mg SL Q6HR PRN 30 Days Thera/Beta-Carotene (Multiple Vitamin) 1 Tab Tab 1 Tab PO DAILY 30 Days Metoprolol Tartrate 25 Mg Tab 25 Mg PO Q12HR 30 Days check BP and HR 30 min before giving hold if HR<70 hold if SBP<105 Melatonin 5 Mg Tab 5 Mg PO HS 10 Days Ferrous Sulfate 325 Mg Tab 325 Mg PO BID@12,17 30 Days Dok (Docusate Sodium) 100 Mg Cap 100 Mg PO BID 30 Days Lotrisone Topical (Betamethasone/Clotrimazole) 1-0.05% Cream 1 Applic TOPICAL Q12HR 10 Days Lipitor (Atorvastatin Calcium) 40 Mg Tab 40 Mg PO HS 30 Days Eliquis (Apixaban) 5 Mg Tab 5 Mg PO BID 30 Days Walker Rolling/GetGo (Device) 1 Mis Mis 1 Ea .ROUTE DIRECTED Commode 3-in-1 (Device) 1 Mis Mis 1 Ea .ROUTE DIRECTED Wheelchair (Device) 1 Mis Mis 1 Ea .ROUTE DIRECTED Plavix (Clopidogrel Bisulfate) 75 Mg Tab 75 Mg PO DAILY Reported Clonazepam 0.5 Mg Tab 0.25-0.5 Mg PO BID PRN Take daily as needed for anxiety or at bedtime as needed for insomnia Ambien (Zolpidem Tartrate) 5 Mg Tab 5 Mg PO HS PRN Meclizine (Meclizine HCl) 12.5 Mg Tab 12.5 Mg PO Q8HR PRN Percocet (Oxycodone-Acetaminophen) 5-325 mg Tab 0.5-1 Tab PO Q6HR PRN Aspirin Adult Low Strength (Aspirin) 81 Mg Tabdr 81 Mg PO DAILY Review of Systems Except as stated in HPI: all other systems reviewed are Neg Physical Exam Narrative GENERAL: Well-developed, well-nourished, alert elderly gentleman. Resting comfortably in no acute distress. SKIN: Warm and dry. HEAD: Atraumatic. Normocephalic. EYES: Pupils equal and round. No scleral icterus. No injection or drainage. ENT: No nasal bleeding or discharge. Mucous membranes pink and moist. NECK: Trachea midline. No JVD. CARDIOVASCULAR: Regular rate and rhythm. 2/6 systolic murmur. RESPIRATORY: No accessory muscle use. Clear to auscultation. Breath sounds equal bilaterally. GASTROINTESTINAL: Abdomen soft, non-tender, nondistended. Hepatic and splenic margins not palpable. MUSCULOSKELETAL: Extremities without clubbing, cyanosis, or edema. No obvious deformities. NEUROLOGICAL: Awake and alert. No obvious cranial nerve deficits. Motor grossly within normal limits. Five out of 5 muscle strength in the arms and legs. Normal speech. PSYCHIATRIC: Appropriate mood and affect; insight and judgment normal. Data Data Last Documented VS Vital Signs Date Time Temp Pulse Resp B/P (MAP) Pulse Ox O2 Delivery O2 Flow Rate FiO2 02/09/17 13:44 96 Room Air 02/09/17 13:39 77 18 02/09/17 12:01 97.7 Orders Orders Electrocardiogram (02/09/17 ) Complete Blood Count With Diff (02/09/17 13:03) Comprehensive Metabolic Panel (02/09/17 13:03) Urinalysis - C+S If Indicated (02/09/17 13:03) Ecg Monitoring (02/09/17 13:03) Iv Access Insert/Monitor (02/09/17 13:03) Oximetry (02/09/17 13:03) Sodium Chloride 0.9% Flush (Ns Flush) (02/09/17 13:15) Sodium Chlor 0.9% 1000 Ml Inj (Ns 1000 M (02/09/17 14:15) Labs Laboratory Tests Test 02/09/17 13:20 02/09/17 13:25 Urine Color LIGHT-YELLOW Urine Turbidity CLEAR Urine pH 5.5 Urine Specific [place] 1.004 Urine Protein NEG mg/dL Urine Glucose (UA) NEG mg/dL Urine Ketones NEG mg/dL Urine Occult Blood NEG Urine Nitrite NEG Urine Bilirubin NEG Urine Urobilinogen LESS THAN 2.0 MG/DL Urine Leukocyte Esterase NEG Urine WBC LESS THAN 1 /hpf Microscopic Urinalysis Comment CATH-CULT NOT IND White Blood Count 4.2 TH/MM3 Red Blood Count 4.51 MIL/MM3 Hemoglobin 14.6 GM/DL Hematocrit 42.5 % Mean Corpuscular Volume 94.2 FL Mean Corpuscular Hemoglobin 32.3 PG Mean Corpuscular Hemoglobin Concent 34.3 % Red Cell Distribution Width 12.4 % Platelet Count 131 TH/MM3 Mean Platelet Volume 7.2 FL Neutrophils (%) (Auto) 68.0 % Lymphocytes (%) (Auto) 20.4 % Monocytes (%) (Auto) 7.7 % Eosinophils (%) (Auto) 2.6 % Basophils (%) (Auto) 1.3 % Neutrophils # (Auto) 2.9 TH/MM3 Lymphocytes # (Auto) 0.9 TH/MM3 Monocytes # (Auto) 0.3 TH/MM3 Eosinophils # (Auto) 0.1 TH/MM3 Basophils # (Auto) 0.1 TH/MM3 CBC Comment DIFF FINAL Differential Comment Blood Urea Nitrogen 18 MG/DL Creatinine 1.47 MG/DL Random Glucose 97 MG/DL Total Protein 6.3 GM/DL Albumin 3.3 GM/DL Calcium Level 8.4 MG/DL Alkaline Phosphatase 62 U/L Aspartate Amino Transf (AST/SGOT) 23 U/L Alanine Aminotransferase (ALT/SGPT) 24 U/L Total Bilirubin 0.6 MG/DL Sodium Level 139 MEQ/L Potassium Level 4.0 MEQ/L Chloride Level 109 MEQ/L Carbon Dioxide Level 23.1 MEQ/L Anion Gap 7 MEQ/L Estimat Glomerular Filtration Rate 47 ML/MIN MDM Medical Decision Making Medical Screen Exam Complete: Yes Emergency Medical Condition: Yes Medical Record Reviewed: Yes Interpretation(s) Laboratory Tests Test 02/09/17 13:20 02/09/17 13:25 Urine Color LIGHT-YELLOW Urine Turbidity CLEAR Urine pH 5.5 Urine Specific [place] 1.004 Urine Protein NEG mg/dL Urine Glucose (UA) NEG mg/dL Urine Ketones NEG mg/dL Urine Occult Blood NEG Urine Nitrite NEG Urine Bilirubin NEG Urine Urobilinogen LESS THAN 2.0 MG/DL Urine Leukocyte Esterase NEG Urine WBC LESS THAN 1 /hpf Microscopic Urinalysis Comment CATH-CULT NOT IND White Blood Count 4.2 TH/MM3 Red Blood Count 4.51 MIL/MM3 Hemoglobin 14.6 GM/DL Hematocrit 42.5 % Mean Corpuscular Volume 94.2 FL Mean Corpuscular Hemoglobin 32.3 PG Mean Corpuscular Hemoglobin Concent 34.3 % Red Cell Distribution Width 12.4 % Platelet Count 131 TH/MM3 Mean Platelet Volume 7.2 FL Neutrophils (%) (Auto) 68.0 % Lymphocytes (%) (Auto) 20.4 % Monocytes (%) (Auto) 7.7 % Eosinophils (%) (Auto) 2.6 % Basophils (%) (Auto) 1.3 % Neutrophils # (Auto) 2.9 TH/MM3 Lymphocytes # (Auto) 0.9 TH/MM3 Monocytes # (Auto) 0.3 TH/MM3 Eosinophils # (Auto) 0.1 TH/MM3 Basophils # (Auto) 0.1 TH/MM3 CBC Comment DIFF FINAL Differential Comment Blood Urea Nitrogen 18 MG/DL Creatinine 1.47 MG/DL Random Glucose 97 MG/DL Total Protein 6.3 GM/DL Albumin 3.3 GM/DL Calcium Level 8.4 MG/DL Alkaline Phosphatase 62 U/L Aspartate Amino Transf (AST/SGOT) 23 U/L Alanine Aminotransferase (ALT/SGPT) 24 U/L Total Bilirubin 0.6 MG/DL Sodium Level 139 MEQ/L Potassium Level 4.0 MEQ/L Chloride Level 109 MEQ/L Carbon Dioxide Level 23.1 MEQ/L Anion Gap 7 MEQ/L Estimat Glomerular Filtration Rate 47 ML/MIN Vital Signs Date Time Temp Pulse Resp B/P (MAP) Pulse Ox O2 Delivery O2 Flow Rate FiO2 02/09/17 13:44 96 Room Air 02/09/17 13:39 77 18 98 02/09/17 13:15 87 18 145/93 (110) 96 Room Air 02/09/17 12:01 97.7 66 20 161/109 (126) 95 Room Air Differential Diagnosis Uncontrolled hypertension versus metabolic abnormalities versus acute kidney injury versus vertigo versus less likely CVA Narrative Course Patient is a 76-year-old man was brought in for evaluation of hypertension this morning. On arrival patient's blood pressure had normalized. Daughter was concerned that he was out doing yard work yesterday afternoon and could be dehydrated. Labs ordered and pending. No new focal deficits on exam. Patient alert and oriented, his vital signs are stable. Labs reviewed, CBC is unremarkable with no acute abnormalities identified Chemistry with a creatinine of 1.47, this is compared to priors which is improved. Urinalysis is unremarkable Patient's vital signs remained stable. Patient is requesting to go home. He denies any dizziness or any other complaints at this time. Patient was encouraged to maintain adequate fluid intake. He was encouraged to return to emergency department for any new or worsening symptoms. Daughter was encouraged to follow-up with primary care provider. They verbalized understanding of these instructions. Patient stable for discharge. Diagnosis Primary Impression: HTN (hypertension) Qualified Codes: I10 - Essential (primary) hypertension Referrals: Primary Care Physician Patient Instructions: General Instructions Additional Instructions: Continue home medications as previously prescribed Return to emergency department for any new or worsening symptoms Maintain adequate fluid intake Follow-up with your primary doctor Med/Other Pt SpecificInfo: No Change to Meds Disposition: 01 DISCHARGE HOME Condition: Stable Sharon Moss Feb 09, 2017 14:24
[2017-02-09 14:34] VITALS: BP 132/98
--- NOTE | 2017-02-10 18:20 | EKG ---
Date Performed: 02/09/2017 Time Performed: 12:12:05 PTAGE: 76 years EKG: Sinus rhythm WITH SINUS ARRHYTHMIA NONSPECIFIC T-WAVE CHANGE SINCE PREVIOUS TRACING 07/17/2017 T-WAVE CHANGES SLIG HTLY IMPROVED, OTHERWISE NO SIGNIFICANT CHANGE. ABNORMAL ECG PREVIOUS TRACING : 07/17/2016 08.24 DOCTOR: Bradford Archer Interpretating Date/Time 02/10/2017 18:19:17
== END 2017-02-09 14:58 | disposition home or self-care (01) ==
LOC: NEPE 11:57
DX: I10 Essential (primary) hypertension (principal)
CPT/HCPCS: 80053; 81001; 85025; 93005; 99284

== ENCOUNTER → 2017-04-20 | Outpatient (CLI) | payer MEDICARE ==
[~2017-04-20] MED LIST changes: -ASPI1TAB91 PO; +ASPI81TA16 PO
--- NOTE | 2017-04-20 11:29 | RADRPT ---
EXAM DATE/TIME: 04/20/2017 00:00 [facility] COMPARISON: No previous studies available for comparison. INDICATIONS : Dysphagia. FLUORO TIME: 2.0 minutes IMAGE COUNT: 0 CONTRAST: Dose as prescribed by speech pathologist. MEDICAL HISTORY : Hypercholesterolemia. Hypertension. CVA. Anticoagulant therapy. Prostate cancer. Right kidney and pro state cancer. Radiation therapy. SURGICAL HISTORY : Hemorrhoidectomy. Right nephrectomy. Cataract removal. Aortic valve replacement. Mitral valve ring. I nguinal hernia repair. ENCOUNTER: Initial ACUITY: 1 day PAIN SCORE: 0/10 LOCATION: esophagus FINDINGS: A modified barium swallow was performed with speech pathology. Patient was given a variety of liquids to swallow. For a full detailed report, see report by the speech pathologist. CONCLUSION: The patient did have a small early Zenker's diverticulum with some prominence of the cricopharyngeus muscle. Eron Lester MD on April 20, 2017 at 11:27 Board Certified Radiologist. This report was verified electronically.
== END ==
LOC: HRAD 10:39
PROVIDERS: ATTEND Physical Medicine & Rehabilitation
DX: R13.10 Dysphagia, unspecified (principal)
CPT/HCPCS: 74230; 92611; G8996; G8997; G8998

== ENCOUNTER 2017-05-27 12:08 | Emergency (ER) | payer MEDICARE ==
[~2017-05-27] VITALS: Ht 172.7 cm; Wt 77.0 kg
[2017-05-27 12:09] VITALS: BP 91/64; PULSE 113; RESP 18; TEMP 98.4; O2SAT 94
[2017-05-27 13:24] LABS: AUTOMATED NEUTROPHIL # 2.5 TH/MM3 (1.8-7.7); EOSINOPHIL % 0.2 % (0.0-4.0); HEMATOCRIT 39.1 % (39.0-51.0); HEMOGLOBIN 13.3 GM/DL (13.0-17.0); LYMPH % 20.9 % (9.0-44.0); LYMPHOCYTE # 0.7 TH/MM3 (1.0-4.8); MEAN CELL VOLUME 87.7 FL (80.0-100.0); MEAN CORPUSCULAR HEMOGLOBIN 29.9 PG (27.0-34.0); MEAN CORPUSCULAR HGB CONC 34.1 % (32.0-36.0); MEAN PLATELET VOLUME 8.1 FL (7.0-11.0); MONO % 4.6 % (0.0-8.0); MONOCYTE # 0.2 TH/MM3 (0-0.9); NEUT % 73.3 % (16.0-70.0); PLATELET COUNT 77 TH/MM3 (150-450); RED BLOOD COUNT 4.46 MIL/MM3 (4.50-5.90); RED CELL DISTRIBUTION WIDTH 13.2 % (11.6-17.2); WHITE BLOOD COUNT 3.4 TH/MM3 (4.0-11.0)
[2017-05-27 13:31] LABS: INTERNATIONAL NORMALIZED RATIO 1.2 RATIO; PROTHROMBIN TIME - PATIENT 12.3 SEC (9.8-11.6)
[2017-05-27 13:59] LABS: ALBUMIN 2.9 GM/DL (3.4-5.0); ALT (GPT) 55 U/L (12-78); AST (GOT) 65 U/L (15-37); BICARBONATE 27.6 MEQ/L (21.0-32.0); BLOOD UREA NITROGEN 22 MG/DL (7-18); CALCIUM 8.5 MG/DL (8.5-10.1); CHLORIDE 94 MEQ/L (98-107); CREATININE 1.75 MG/DL (0.60-1.30); GLOMERULAR FILTRATION RATE 38 ML/MIN (>89); GLUCOSE,RANDOM 144 MG/DL (74-106); MAGNESIUM 1.9 MG/DL (1.5-2.5); SODIUM (NA) 128 MEQ/L (136-145)
[2017-05-27 14:03] LABS: ALKALINE PHOSPHATASE 82 U/L (45-117); TOTAL BILIRUBIN ADULT 0.7 MG/DL (0.2-1.0); TOTAL PROTEIN 6.1 GM/DL (6.4-8.2); TROPONIN I 0.06 NG/ML (0.02-0.05)
--- NOTE | 2017-05-27 14:04 | RADRPT ---
EXAM DATE/TIME: 05/27/2017 13:51 [facility] COMPARISON: CT BRAIN W/O CONTRAST, July 19, 2016, 2:10. INDICATIONS : Trauma, patient fell at home. RADIATION DOSE: 34.27 CTDIvol (mGy) MEDICAL HISTORY : Cardiovascular disease. Cerebrovascular disease. Hypertension.kidney, prostate cancer SURGICAL HISTORY : None. ENCOUNTER: Initial ACUITY: 1 day PAIN SCALE: 2/10 LOCATION: cranial TECHNIQUE: Multiple contiguous axial images were obtained of the head. Using automated exposure control and adj ustment of the mA and/or kV according to patient size, radiation dose was kept as low as reasonably a chievable to obtain optimal diagnostic quality images. DICOM format image data is available electro nically for review and comparison. FINDINGS: CEREBRUM: The ventricles are normal for age with atrophic change. No evidence of midline shift, mass lesion, he morrhage or acute infarction. There is an area of remote infarction involving the right thalamus and posterior limb of the internal capsule. No extra-axial fluid collections are seen. Chronic small vess el ischemic changes noted. POSTERIOR FOSSA: The cerebellum and brainstem are intact. The 4th ventricle is midline. The cerebellopontine angle i s unremarkable. EXTRACRANIAL: The visualized portion of the orbits is intact. SKULL: The calvaria is intact. No evidence of skull fracture. CONCLUSION: 1. No acute hemorrhage or mass effect. 2. Old areas of infarction involving the right thalamus and posterior limb of the internal capsule an d 3. Atrophy and chronic small vessel ischemic changes. Ariel Liang MD on May 27, 2017 at 14:00 Board Certified Radiologist. This report was verified electronically.
--- NOTE | 2017-05-27 14:27 | PD ---
HPI Chief Complaint: Abnormal Results Time Seen by Provider: 14:03 Travel History International Travel<30 days: No Contact w/Intl Traveler<30days: No Traveled to known affect area: No History of Present Illness HPI 76-year-old male patient presents emergency department for evaluation of an intermittent lightheaded, worsening memory, fatigue and dizziness 2 weeks. Patient's daughter presents with him and answers most of the questions. She is his primary caregiver since his stroke last June. Patient's daughter states she has found him diaphoretic without paleness or nausea intermittently in the last 2 weeks. His daughter expresses concerns due to a temperature difference in their house. Patient likes his room and very warm and uses a room heater. Patient's daughter states when she walks into his room she becomes diaphoretic immediately. She believes the patient may have kept his room too warm causing him to be diaphoretic and become dehydrated. Patient was evaluated by his primary care regarding orthostatic hypotension and hyponatremia earlier this week. A blood draw was performed on Tuesday and the family was contacted results yesterday expressing concern for severe hyponatremia. Patient's daughter states she does not know the numerical value of the sodium when they called to say he was hyponatremic. Patient's daughter reports that he fell yesterday trying to stand up from his recliner. The floor surrounding the recliner is carpeted. There were no witnesses to the fall. When the patient's daughter got home from work the patient told her he had fallen from the recliner. Patient denies any injuries associated. When the patient originally started feeling admitted and dizzy, it was found that his blood pressure was low. Patient had been historically treated for hypertension. Patient's hypertensive medication was moved from his regimen earlier this month. 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 PFSH Past Medical History Hx Anticoagulant Therapy: Yes Arthritis: No Asthma: No Autoimmune Disease: No Anxiety: Yes Depression: No Cancer: Yes (Kidney, prostate) Cardiovascular Problems: Yes High Cholesterol: Yes Chemotherapy: No Chest Pain: No Congestive Heart Failure: No COPD: No Cerebrovascular Accident: Yes Diabetes: No Diminished Hearing: No Endocrine: No Gastrointestinal Disorders: No GERD: Yes Glaucoma: No Genitourinary: Yes (right kidney removal) Headaches: No Hepatitis: No Hiatal Hernia: No Heparin Induced Thrombocytopen: No Hypertension: Yes Immune Disorder: No Inguinal Hernia: Yes Implanted Vascular Access Dvce: Yes Kidney Stones: No Musculoskeletal: No Neurologic: No Psychiatric: No Reproductive: No Respiratory: No Integumentary: No Migraines: No Radiation Therapy: Yes Renal Failure: No Seizures: No Sickle Cell Disease: No Sleep Apnea: No Thyroid Disease: No Ulcer: No Past Surgical History Abdominal Surgery: Yes (INGUINAL HERNIA, HEMORRHOIDECTOMY) AICD: No Arteriovenous Shunt: No Cardiac Surgery: Yes (Bypass) Ear Surgery: No Endocrine Surgery: Yes (Right kidney removed for CA) Genitourinary Surgery: Yes (Hernia repair, Hemoroids) Gynecologic Surgery: No Insulin Pump: No Joint Replacement: No Neurologic Surgery: No Oral Surgery: No Pacemaker: No Thoracic Surgery: No Valve Replacement: Yes (AORTIC VALVE, MITRAL VALVE RING) Other Surgery: Yes Social History Alcohol Use: Yes (OCCASIONAL) Tobacco Use: No Substance Use: No Allergies-Medications (Allergen,Severity, Reaction): Coded Allergies: benazepril (Unverified Allergy, Severe, 01/11/17) ciprofloxacin (Unverified Allergy, Severe, 01/11/17) ibuprofen (Unverified Allergy, Unknown, 01/11/17) diatrizoate meglumine (Unverified Adverse Reaction, Unknown, 01/11/17) Pt has one Kidney gadobenic acid (Unverified Adverse Reaction, Unknown, 01/11/17) Pt has one Kidney gadodiamide (Unverified Adverse Reaction, Unknown, 01/11/17) Pt has one Kidney gadoteridol (Unverified Adverse Reaction, Unknown, 01/11/17) Pt has one Kidney iodixanol (Unverified Adverse Reaction, Unknown, 01/11/17) Pt has one Kidney iohexol (Unverified Adverse Reaction, Unknown, 01/11/17) Pt has one Kidney Reported Meds & Prescriptions Reported Meds & Active Scripts Active Protonix (Pantoprazole Sodium) 20 Mg Tab 20 Mg PO DAILY 30 Days Nitrostat SL (Nitroglycerin) 0.4 Mg Subl 0.4 Mg SL Q6HR PRN 30 Days Thera/Beta-Carotene (Multiple Vitamin) 1 Tab Tab 1 Tab PO DAILY 30 Days Melatonin 5 Mg Tab 5 Mg PO HS 10 Days Dok (Docusate Sodium) 100 Mg Cap 100 Mg PO BID 30 Days Lipitor (Atorvastatin Calcium) 40 Mg Tab 40 Mg PO HS 30 Days Eliquis (Apixaban) 5 Mg Tab 5 Mg PO BID 30 Days Reported Ferrous Sulfate 325 Mg (65 Mg Iron) Tablet 325 Mg PO BIDPC Review of Systems Except as stated in HPI: all other systems reviewed are Neg Physical Exam Narrative GENERAL: Well-nourished, well-developed 76-year-old male patient in no acute distress. Nontoxic appearing. SKIN: Focused skin assessment warm/dry. HEAD: Atraumatic. Normocephalic. EYES: Pupils equal and round. No scleral icterus. No injection or drainage. ENT: No nasal bleeding or discharge. Mucous membranes pink and moist. NECK: Trachea midline. No JVD. CARDIOVASCULAR: Regular rate and rhythm. No murmur appreciated. RESPIRATORY: No accessory muscle use. Clear to auscultation. Breath sounds equal bilaterally. GASTROINTESTINAL: Abdomen soft, non-tender, nondistended. Hepatic and splenic margins not palpable. MUSCULOSKELETAL: No obvious deformities. No clubbing. No cyanosis. No edema. NEUROLOGICAL: Awake and alert. No obvious cranial nerve deficits. Motor grossly within normal limits. Normal speech. PSYCHIATRIC: Appropriate mood and affect; insight and judgment normal. Data Data Last Documented VS Vital Signs Date Time Temp Pulse Resp B/P (MAP) Pulse Ox O2 Delivery O2 Flow Rate FiO2 05/27/17 17:51 87 18 113/74 (87) 99 18 134/78 (96) 107 18 117/80 (92) 05/27/17 17:50 99 Room Air 05/27/17 12:09 98.4 Orders Orders Complete Blood Count With Diff (05/27/17 12:17) Comprehensive Metabolic Panel (05/27/17 12:17) Act Partial Throm Time (Ptt) (05/27/17 12:17) Prothrombin Time / Inr (Pt) (05/27/17 12:17) Magnesium (Mg) (05/27/17 12:17) Troponin I (05/27/17 12:17) Urinalysis - C+S If Indicated (05/27/17 12:17) Ct Brain W/O Iv Contrast(Rout) (05/27/17 ) Ct Cerv Spine W/O Contrast (05/27/17 ) Electrocardiogram (05/27/17 16:02) Sodium Chlorid 0.9% 500 Ml Inj (Ns 500 M (05/27/17 17:15) Sodium Chlorid 0.9% 500 Ml Inj (Ns 500 M (05/27/17 17:15) Labs Laboratory Tests Test 05/27/17 13:05 05/27/17 15:24 White Blood Count 3.4 TH/MM3 Red Blood Count 4.46 MIL/MM3 Hemoglobin 13.3 GM/DL Hematocrit 39.1 % Mean Corpuscular Volume 87.7 FL Mean Corpuscular Hemoglobin 29.9 PG Mean Corpuscular Hemoglobin Concent 34.1 % Red Cell Distribution Width 13.2 % Platelet Count 77 TH/MM3 Mean Platelet Volume 8.1 FL Neutrophils (%) (Auto) 73.3 % Lymphocytes (%) (Auto) 20.9 % Monocytes (%) (Auto) 4.6 % Eosinophils (%) (Auto) 0.2 % Basophils (%) (Auto) 1.0 % Neutrophils # (Auto) 2.5 TH/MM3 Lymphocytes # (Auto) 0.7 TH/MM3 Monocytes # (Auto) 0.2 TH/MM3 Eosinophils # (Auto) 0.0 TH/MM3 Basophils # (Auto) 0.0 TH/MM3 CBC Comment AUTO DIFF Differential Comment AUTO DIFF CONFIRMED Platelet Estimate LOW Platelet Morphology Comment NORMAL Red Cell Morphology Comment NORMAL Prothrombin Time 12.3 SEC Prothromb Time International Ratio 1.2 RATIO Activated Partial Thromboplast Time 31.9 SEC Blood Urea Nitrogen 22 MG/DL Creatinine 1.75 MG/DL Random Glucose 144 MG/DL Total Protein 6.1 GM/DL Albumin 2.9 GM/DL Calcium Level 8.5 MG/DL Magnesium Level 1.9 MG/DL Alkaline Phosphatase 82 U/L Aspartate Amino Transf (AST/SGOT) 65 U/L Alanine Aminotransferase (ALT/SGPT) 55 U/L Total Bilirubin 0.7 MG/DL Sodium Level 128 MEQ/L Potassium Level 4.1 MEQ/L Chloride Level 94 MEQ/L Carbon Dioxide Level 27.6 MEQ/L Anion Gap 6 MEQ/L Estimat Glomerular Filtration Rate 38 ML/MIN Troponin I 0.06 NG/ML Urine Color YELLOW Urine Turbidity CLEAR Urine pH 5.5 Urine Specific [place] 1.016 Urine Protein 30 mg/dL Urine Glucose (UA) NEG mg/dL Urine Ketones NEG mg/dL Urine Occult Blood NEG Urine Nitrite NEG Urine Bilirubin NEG Urine Urobilinogen LESS THAN 2.0 MG/DL Urine Leukocyte Esterase NEG Urine WBC 1 /hpf Urine Mucus FEW /lpf Microscopic Urinalysis Comment CULT NOT INDICATED MDM Medical Decision Making Medical Screen Exam Complete: Yes Emergency Medical Condition: Yes Differential Diagnosis Differential diagnoses include but aren't limited to electrolyte abnormality, arrhythmia, coronary event, dehydration, fall Narrative Course Patient placed on monitor and IV obtained. CBC, CMP, PT/INR, magnesium, troponin, UA ordered and pending. Before patient received bed placement in triage CT of the brain and cervical spine was ordered to evaluate after the fall. EKG ordered and pending. CBC shows no acute abnormality CMP show hyponatremia at 128 Troponin elevated at 0.06. Dr Alcantara evaluated patient and review previous medical record. Patient has history of valve replacement and elevated troponin. PT/INR shows mildly elevated PT at 12.3 and APTT at 31.9 Magnesium within normal limits at 1.9 UA shows proteinuria but otherwise no acute abnormality. Brain CT shows no acute findings Cervical Spine CT shows degenerative findings, no fracture. Patient was given 500mL NS bolus. Patient stood up and felt dizzy. Patient was reassessed and another 500mL NS bolus was given. Then orthostatic vital signs were taken. Patient was able to stand and ambulate without dizziness. Patient is well appearing and hydrated. Patient states he is ready for discharge. Patient is stable for discharge. Patient is discharged home with his daughter at this time with instructions to return to the emergency department with any worsening condition but otherwise follow up with his primary care. Last Impressions Head CT 05/27/17 0000 Signed Impressions: Service Date/Time: Saturday, May 27, 2017 13:51 - CONCLUSION: 1. No acute hemorrhage or mass effect. 2. Old areas of infarction involving the right thalamus and posterior limb of the internal capsule and 3. Atrophy and chronic small vessel ischemic changes. Ariel Liang MD Cervical Spine CT 05/27/17 0000 Signed Impressions: Service Date/Time: Saturday, May 27, 2017 13:51 - CONCLUSION: 1. Multilevel degenerative disc disease from C4-5 inferiorly. Grade 1 anterolisthesis of C7 on T1. 2. No fracture. 3. Despite degenerative changes, spinal canal and neural foramina appear to be adequate throughout. 4. 1.8 cm low-density nodule posteriorly in the right lobe of the thyroid. Ultrasound could be performed for further characterization if clinically warranted. Brannon Weaver MD Diagnosis Primary Impression: Generalized weakness Referrals: Primary Care Physician Patient Instructions: General Instructions, Hyponatremia (ED), Weakness (ED) Additional Instructions: Please return to emergency department if your symptoms return or worsen. Follow up with your primary care provider. Disposition: 01 DISCHARGE HOME Condition: Stable Brittny Condon KAELA May 27, 2017 14:27
[2017-05-27 14:32] VITALS: BP 99/71; PULSE 86; RESP 18; O2SAT 95
[2017-05-27] MEDS ORDERED: FERR325T18 PO (14:37)
--- NOTE | 2017-05-27 14:54 | RADRPT ---
EXAM DATE/TIME: 05/27/2017 13:51 [facility] COMPARISON: No previous studies available for comparison. INDICATIONS : Trauma, patient fell. RADIATION DOSE: 20.76 CTDIvol (mGy) MEDICAL HISTORY : Cardiovascular disease. Cerebrovascular disease. Hypertension.kidney, prostate cancer SURGICAL HISTORY : None. ENCOUNTER: Initial ACUITY: 1 day PAIN SCALE: 2/10 LOCATION: Right neck TECHNIQUE: Volumetric scanning of the cervical spine was performed. Multiplanar reconstructions in the sagittal, coronal and oblique axial planes were performed. Using automated exposure control and adjustment o f the mA and/or kV according to patient size, radiation dose was kept as low as reasonably achievable to obtain optimal diagnostic quality images. DICOM format image data is available electronically f or review and comparison. 1.8 cm low density nodule posteriorly in the right lobe of the thyroid FINDINGS: Sac sagittal and coronal reconstruction show multilevel degenerative disc disease from C4-5 inferiorl y, most severe at C4-5 and C5-6 with bone on bone articulation and associated marginal spurring. Grad e 1 anterolisthesis of C7 on T1. Vertebral body heights are maintained without evidence of acute frac ture. Despite degenerative changes, the spinal canal appears adequate throughout. C2-C3: The bony spinal canal is normal in size. No evidence of disc bulge or herniation. The neural forami na are bilaterally patent. C3-C4: The bony spinal canal is normal in size. No evidence of disc bulge or herniation. The neural forami na are bilaterally patent. C4-C5: Diffuse uncovertebral ridging with some encroachment of both neural foramina. Canal and neural forami na remain patent. C5-C6: Uncovertebral and ridging with encroachment on the anterior epidural space and both neural foramina b ut the spinal canal and neural foramina remain adequate C6-C7: Uncovertebral ridging. Spinal canal and neural foramina are adequate C7-T1: Anterolisthesis of C7 on T1 but the spinal canal and neural foramina are patent. CONCLUSION: 1. Multilevel degenerative disc disease from C4-5 inferiorly. Grade 1 anterolisthesis of C7 on T1. 2. No fracture. 3. Despite degenerative changes, spinal canal and neural foramina appear to be adequate throughout. 4. 1.8 cm low-density nodule posteriorly in the right lobe of the thyroid. Ultrasound could be perfor med for further characterization if clinically warranted. Brannon Weaver MD on May 27, 2017 at 14:45 Board Certified Radiologist. This report was verified electronically.
[2017-05-27 16:13] LABS: BILIRUBIN, URINE NEG (NEG); BLOOD, URINE NEG (NEG); GLUCOSE,URINE NEG (NEG); KETONE, URINE NEG (NEG); MUCUS URINE FEW /lpf (OCC); NITRITE,URINE NEG (NEG); PH, URINE 5.5 (5.0-8.5); URINE COLOR YELLOW (YELLW/STRAW); URINE LEUKOCYTE ESTERASE NEG (NEG)
[2017-05-27] MEDS ORDERED: SODIUM CHLORID 0.9% 500 ML INJ 500 ML IV ONE ×2 (17:15)
[2017-05-27 17:50] VITALS: BP 113/74; PULSE 87; RESP 18; O2SAT 99
[2017-05-27 17:51] VITALS: BP_SYST 113; BP_SYST 117; BP_SYST 134; BP_DIAS 74; BP_DIAS 78; BP_DIAS 80; RESP 18
--- NOTE | 2017-05-27 18:18 | PD ---
Data Data Last Documented VS Vital Signs Date Time Temp Pulse Resp B/P (MAP) Pulse Ox O2 Delivery O2 Flow Rate FiO2 05/27/17 17:51 87 18 113/74 (87) 99 18 134/78 (96) 107 18 117/80 (92) 05/27/17 17:50 99 Room Air 05/27/17 12:09 98.4 Orders Orders Complete Blood Count With Diff (05/27/17 12:17) Comprehensive Metabolic Panel (05/27/17 12:17) Act Partial Throm Time (Ptt) (05/27/17 12:17) Prothrombin Time / Inr (Pt) (05/27/17 12:17) Magnesium (Mg) (05/27/17 12:17) Troponin I (05/27/17 12:17) Urinalysis - C+S If Indicated (05/27/17 12:17) Ct Brain W/O Iv Contrast(Rout) (05/27/17 ) Ct Cerv Spine W/O Contrast (05/27/17 ) Electrocardiogram (05/27/17 16:02) Sodium Chlorid 0.9% 500 Ml Inj (Ns 500 M (05/27/17 17:15) Sodium Chlorid 0.9% 500 Ml Inj (Ns 500 M (05/27/17 17:15) Labs Laboratory Tests Test 05/27/17 13:05 05/27/17 15:24 White Blood Count 3.4 TH/MM3 Red Blood Count 4.46 MIL/MM3 Hemoglobin 13.3 GM/DL Hematocrit 39.1 % Mean Corpuscular Volume 87.7 FL Mean Corpuscular Hemoglobin 29.9 PG Mean Corpuscular Hemoglobin Concent 34.1 % Red Cell Distribution Width 13.2 % Platelet Count 77 TH/MM3 Mean Platelet Volume 8.1 FL Neutrophils (%) (Auto) 73.3 % Lymphocytes (%) (Auto) 20.9 % Monocytes (%) (Auto) 4.6 % Eosinophils (%) (Auto) 0.2 % Basophils (%) (Auto) 1.0 % Neutrophils # (Auto) 2.5 TH/MM3 Lymphocytes # (Auto) 0.7 TH/MM3 Monocytes # (Auto) 0.2 TH/MM3 Eosinophils # (Auto) 0.0 TH/MM3 Basophils # (Auto) 0.0 TH/MM3 CBC Comment AUTO DIFF Differential Comment AUTO DIFF CONFIRMED Platelet Estimate LOW Platelet Morphology Comment NORMAL Red Cell Morphology Comment NORMAL Prothrombin Time 12.3 SEC Prothromb Time International Ratio 1.2 RATIO Activated Partial Thromboplast Time 31.9 SEC Blood Urea Nitrogen 22 MG/DL Creatinine 1.75 MG/DL Random Glucose 144 MG/DL Total Protein 6.1 GM/DL Albumin 2.9 GM/DL Calcium Level 8.5 MG/DL Magnesium Level 1.9 MG/DL Alkaline Phosphatase 82 U/L Aspartate Amino Transf (AST/SGOT) 65 U/L Alanine Aminotransferase (ALT/SGPT) 55 U/L Total Bilirubin 0.7 MG/DL Sodium Level 128 MEQ/L Potassium Level 4.1 MEQ/L Chloride Level 94 MEQ/L Carbon Dioxide Level 27.6 MEQ/L Anion Gap 6 MEQ/L Estimat Glomerular Filtration Rate 38 ML/MIN Troponin I 0.06 NG/ML Urine Color YELLOW Urine Turbidity CLEAR Urine pH 5.5 Urine Specific [place] 1.016 Urine Protein 30 mg/dL Urine Glucose (UA) NEG mg/dL Urine Ketones NEG mg/dL Urine Occult Blood NEG Urine Nitrite NEG Urine Bilirubin NEG Urine Urobilinogen LESS THAN 2.0 MG/DL Urine Leukocyte Esterase NEG Urine WBC 1 /hpf Urine Mucus FEW /lpf Microscopic Urinalysis Comment CULT NOT INDICATED MDM Medical Record Reviewed: Yes Supervised Visit with OVIDIO: Yes Narrative Course I, Dr. Alcantara, have reviewed the advance practice practitioner's documentation and am in agreement, met with the patient face to face, made the diagnosis, and the medical decision making was done by me. *My assessment and Findings: Pt seen and examined by me. Patient ambulatory in the ER with stteady gait with assistance. Long discussion with patient and family preceded discharge with questions and answers to satisfaction of all parties. PT is medically stable for discharge home. Diagnosis Primary Impression: Generalized weakness Referrals: Primary Care Physician Patient Instructions: General Instructions, Hyponatremia (ED), Weakness (ED) Departure Forms: Tests/Procedures Additional Instruction: Please return to emergency department if your symptoms return or worsen. Follow up with your primary care provider. Disposition: 01 DISCHARGE HOME Condition: Stable Brock Alcantara MD May 27, 2017 18:18
--- NOTE | 2017-05-29 13:49 | EKG ---
Date Performed: 05/27/2017 Time Performed: 16:10:47 PTAGE: 76 years EKG: Sinus rhythm Compared to previous tracing, there is improvement in the previous ST-T abnormality BORDERLINE ECG PREVIOUS TRACING : 02/09/2017 12.12 DOCTOR: Sean Carpenter Interpretating Date/Time 05/31/2017 10:37:01
== END 2017-05-27 17:59 | disposition home or self-care (01) ==
LOC: NEPC 12:08
DX: R53.1 Weakness (principal); R42 Dizziness and giddiness; M50.321 Other cervical disc degeneration at C4-C5 level; E04.1 Nontoxic single thyroid nodule; R94.31 Abnormal electrocardiogram [ECG] [EKG]; E78.00 Pure hypercholesterolemia, unspecified; K21.9 Gastro-esophageal reflux disease without esophagitis; I10 Essential (primary) hypertension; Z86.73 Personal history of transient ischemic attack (TIA), and cerebral infarction without residual deficits
CPT/HCPCS: 70450; 72125; 80053; 81001; 83735; 84484; 85025; 85610; 85730; 93005; 99285; J7040

== ENCOUNTER 2017-06-07 13:20 | Inpatient (IN) | payer MEDICARE ==
[~2017-06-07] VITALS: Ht 172.7 cm; Wt 80.0 kg
[2017-06-07] VITALS (8 sets, daily range): BP systolic 92–111; BP diastolic 7–73; PULSE 78–91; RESP 16–18; TEMP 97.5–98.5; O2SAT 94–97
[~2017-06-07 13:20] MED LIST changes: +FERR325T18 PO
[2017-06-07] MEDS ORDERED: SODIUM CHLOR 0.9% 1000 ML INJ 1,000 ML IV SCH (13:47)
--- NOTE | 2017-06-07 13:57 | PD ---
HPI Chief Complaint: General Weakness Time Seen by Provider: 13:32 Travel History International Travel<30 days: No Contact w/Intl Traveler<30days: No Traveled to known affect area: No History of Present Illness HPI 76-year-old male presents to the emergency department for increased confusion, increasing generalized weakness, hypotension. Patient's daughter at bedside states that he has been slowly declining over the past 2 weeks, but definitely much worse in the past week. She states she has had multiple falls, but denies any head injury. 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 Since then, he will have some trouble finding his words, but has never been confused. He also has difficulty getting around and is requiring assistance with his walker. The daughter reports decreased appetite. He also has a history of open-heart surgery for valve replacement last year with pericardial effusion after. When EMS arrived on scene, the patient's systolic blood pressure was in the 70s. They were unable to obtain access and he has not had any fluids prior to me seeing him. The patient himself denies any complaints. He is alert and oriented to person, place, but not time and will say sentences that do not make sense. Moderate severity. No exacerbating or alleviating factors. Patient also with history of nephrectomy, hypertension. PFSH Past Medical History Hx Anticoagulant Therapy: Yes Arthritis: No Asthma: No Autoimmune Disease: No Anxiety: Yes Depression: No Cancer: Yes (Kidney, prostate) Cardiovascular Problems: Yes High Cholesterol: Yes Chemotherapy: No Chest Pain: No Congestive Heart Failure: No COPD: No Cerebrovascular Accident: Yes Diabetes: No Diminished Hearing: No Endocrine: No Gastrointestinal Disorders: No GERD: Yes Glaucoma: No Genitourinary: Yes (right kidney removal) Headaches: No Hepatitis: No Hiatal Hernia: No Heparin Induced Thrombocytopen: No Hypertension: Yes Immune Disorder: No Inguinal Hernia: Yes Implanted Vascular Access Dvce: Yes Kidney Stones: No Musculoskeletal: No Neurologic: No Psychiatric: No Reproductive: No Respiratory: No Integumentary: No Migraines: No Radiation Therapy: Yes Renal Failure: No Seizures: No Sickle Cell Disease: No Sleep Apnea: No Thyroid Disease: No Ulcer: No Past Surgical History Abdominal Surgery: Yes (INGUINAL HERNIA, HEMORRHOIDECTOMY) AICD: No Arteriovenous Shunt: No Cardiac Surgery: Yes (Bypass) Ear Surgery: No Endocrine Surgery: Yes (Right kidney removed for CA) Genitourinary Surgery: Yes (Hernia repair, Hemoroids) Gynecologic Surgery: No Insulin Pump: No Joint Replacement: No Neurologic Surgery: No Oral Surgery: No Pacemaker: No Thoracic Surgery: No Valve Replacement: Yes (AORTIC VALVE, MITRAL VALVE RING) Other Surgery: Yes Social History Alcohol Use: No Tobacco Use: No Substance Use: No Allergies-Medications (Allergen,Severity, Reaction): Coded Allergies: benazepril (Unverified Allergy, Severe, 01/11/17) ciprofloxacin (Unverified Allergy, Severe, 01/11/17) ibuprofen (Unverified Allergy, Unknown, 01/11/17) diatrizoate meglumine (Unverified Adverse Reaction, Unknown, 01/11/17) Pt has one Kidney gadobenic acid (Unverified Adverse Reaction, Unknown, 01/11/17) Pt has one Kidney gadodiamide (Unverified Adverse Reaction, Unknown, 01/11/17) Pt has one Kidney gadoteridol (Unverified Adverse Reaction, Unknown, 01/11/17) Pt has one Kidney iodixanol (Unverified Adverse Reaction, Unknown, 01/11/17) Pt has one Kidney iohexol (Unverified Adverse Reaction, Unknown, 01/11/17) Pt has one Kidney Reported Meds & Prescriptions Reported Meds & Active Scripts Active Protonix (Pantoprazole Sodium) 20 Mg Tab 20 Mg PO DAILY 30 Days Nitrostat SL (Nitroglycerin) 0.4 Mg Subl 0.4 Mg SL Q6HR PRN 30 Days Thera/Beta-Carotene (Multiple Vitamin) 1 Tab Tab 1 Tab PO DAILY 30 Days Melatonin 5 Mg Tab 5 Mg PO HS 10 Days Dok (Docusate Sodium) 100 Mg Cap 100 Mg PO BID 30 Days Lipitor (Atorvastatin Calcium) 40 Mg Tab 40 Mg PO HS 30 Days Eliquis (Apixaban) 5 Mg Tab 5 Mg PO BID 30 Days Reported Tylenol (Acetaminophen) 325 Mg Tab 500 Mg PO Q6H PRN Glucosamine-Chondroitin 500-400 Mg Tab 1 Tab PO DAILY Meclizine (Meclizine HCl) 12.5 Mg Tab 12.5 Mg PO DIRECTED PRN Ferrous Sulfate 325 Mg (65 Mg Iron) Tablet 325 Mg PO BIDPC Review of Systems Except as stated in HPI: all other systems reviewed are Neg Physical Exam Narrative GENERAL: Well-nourished, well-developed elderly male patient, afebrile. Patient is alert and oriented to person and place only. SKIN: Focused skin assessment warm/dry. HEAD: Normocephalic. Atraumatic. EYES: No scleral icterus. No injection or drainage. NECK: Supple, trachea midline. No JVD or lymphadenopathy. CARDIOVASCULAR: Regular rate and rhythm without murmurs, gallops, or rubs. RESPIRATORY: Breath sounds equal bilaterally. No accessory muscle use. Lungs sounds clear to auscultation. GASTROINTESTINAL: Abdomen soft, non-tender, nondistended. MUSCULOSKELETAL: No cyanosis. 1-2+ bilateral lower extremity edema. Bilateral upper and lower extremity strength 5/5. BACK: Nontender without obvious deformity. No CVA tenderness. Data Data Last Documented VS Vital Signs Date Time Temp Pulse Resp B/P (MAP) Pulse Ox O2 Delivery O2 Flow Rate FiO2 06/07/17 14:20 96 Room Air 06/07/17 13:27 97.5 89 18 92/63 (73) Orders Orders Electrocardiogram (06/07/17 13:47) Ammonia (06/07/17 13:47) Complete Blood Count With Diff (06/07/17 13:47) Comprehensive Metabolic Panel (06/07/17 13:47) Creatine Kinase (Cpk) (06/07/17 13:47) Prothrombin Time / Inr (Pt) (06/07/17 13:47) Act Partial Throm Time (Ptt) (06/07/17 13:47) Troponin I (06/07/17 13:47) Urinalysis - C+S If Indicated (06/07/17 13:47) Lactic Acid Sepsis Protocol (06/07/17 13:47) Blood Culture (06/07/17 13:47) Chest, Single Ap (06/07/17 13:47) Ct Brain W/O Iv Contrast(Rout) (06/07/17 13:47) Blood Glucose (06/07/17 13:47) Ecg Monitoring (06/07/17 13:47) Iv Access Insert/Monitor (06/07/17 13:47) Oximetry (06/07/17 13:47) Sodium Chloride 0.9% Flush (Ns Flush) (06/07/17 14:00) Sodium Chlor 0.9% 1000 Ml Inj (Ns 1000 M (06/07/17 13:47) Vancomycin Inj (Vancomycin Inj) (06/07/17 16:15) Cefepime Inj (Maxipime Inj) (06/07/17 16:15) Admit Order (Ed Use Only) (06/07/17 16:20) Labs Laboratory Tests Test 06/07/17 14:00 06/07/17 14:05 06/07/17 15:06 White Blood Count 3.1 TH/MM3 Red Blood Count 4.42 MIL/MM3 Hemoglobin 13.1 GM/DL Hematocrit 38.6 % Mean Corpuscular Volume 87.3 FL Mean Corpuscular Hemoglobin 29.7 PG Mean Corpuscular Hemoglobin Concent 34.1 % Red Cell Distribution Width 13.7 % Platelet Count 58 TH/MM3 Mean Platelet Volume 8.6 FL Neutrophils (%) (Auto) 74.7 % Lymphocytes (%) (Auto) 20.6 % Monocytes (%) (Auto) 3.8 % Eosinophils (%) (Auto) 0.1 % Basophils (%) (Auto) 0.8 % Neutrophils # (Auto) 2.3 TH/MM3 Lymphocytes # (Auto) 0.6 TH/MM3 Monocytes # (Auto) 0.1 TH/MM3 Eosinophils # (Auto) 0.0 TH/MM3 Basophils # (Auto) 0.0 TH/MM3 CBC Comment AUTO DIFF Differential Total Cells Counted 100 Neutrophils % (Manual) 77 % Band Neutrophils % 11 % Lymphocytes % 8 % Monocytes % 3 % Basophils % 1 % Neutrophils # (Manual) 2.7 TH/MM3 Differential Comment FINAL DIFF MANUAL Platelet Estimate LOW Platelet Morphology Comment NORMAL Prothrombin Time 12.7 SEC Prothromb Time International Ratio 1.3 RATIO Activated Partial Thromboplast Time 31.7 SEC Blood Urea Nitrogen 41 MG/DL Creatinine 1.69 MG/DL Random Glucose 126 MG/DL Total Protein 5.5 GM/DL Albumin 2.7 GM/DL Calcium Level 9.5 MG/DL Alkaline Phosphatase 98 U/L Aspartate Amino Transf (AST/SGOT) 76 U/L Alanine Aminotransferase (ALT/SGPT) 84 U/L Total Bilirubin 0.7 MG/DL Sodium Level 130 MEQ/L Potassium Level 4.9 MEQ/L Chloride Level 96 MEQ/L Carbon Dioxide Level 27.8 MEQ/L Anion Gap 6 MEQ/L Estimat Glomerular Filtration Rate 40 ML/MIN Total Creatine Kinase 99 U/L Troponin I 0.05 NG/ML Lactic Acid Level 1.0 mmol/L Ammonia 26 MCMOL/L Urine Color YELLOW Urine Turbidity CLEAR Urine pH 5.5 Urine Specific [place] 1.017 Urine Protein 30 mg/dL Urine Glucose (UA) NEG mg/dL Urine Ketones NEG mg/dL Urine Occult Blood NEG Urine Nitrite NEG Urine Bilirubin NEG Urine Urobilinogen LESS THAN 2.0 MG/DL Urine Leukocyte Esterase NEG Urine WBC 2 /hpf Urine Calcium Oxalate Crystals OCC /hpf Urine Bacteria RARE /hpf Microscopic Urinalysis Comment CATH-CULT NOT IND MDM Medical Decision Making Medical Screen Exam Complete: Yes Emergency Medical Condition: Yes Medical Record Reviewed: Yes Interpretation(s) Last Impressions Head CT 06/07/177 Signed Impressions: Service Date/Time: Wednesday, June 07, 2017 14:27 - CONCLUSION: 1. No acute hemorrhage, mass effect or acute infarction. 2. Stable atrophy and old areas of infarction. Ariel Liang MD Chest X-Ray 06/07/[id number] Signed Impressions: Service Date/Time: Wednesday, June 07, 2017 14:41 - CONCLUSION: No acute disease. Ariel Liang MD Differential Diagnosis Dehydration versus electrolyte abnormality versus UTI versus pneumonia versus intracranial abnormality Narrative Course 76-year-old male presents to the emergency department for evaluation of increasing confusion, weakness over the past 2 weeks. EKG shows atrial fibrillation, heart rate 94. According to family, this is new and patient does not have a history of atrial fibrillation. IV is established. Start blood pressure is 81. Patient is given normal saline 1 L IV bolus. CBC, CMP, CK, troponin, ammonia level, PTT, PT/INR, lactic acid, blood cultures 2, UA are ordered and pending. Chest x-ray and CT of the brain are ordered and pending. CBC shows leukopenia 3.1, band neutrophils 11. CMP shows hyponatremia 130, BUN 41, creatinine 1.69 AST 76, ALT 84. CK is 99. Troponin is 0.05. Lactic acid is 1.0. Ammonia level is 26. PT is 12.7, INR 1.3, PTT 31.7. UA shows rare bacteria. Chest x-ray shows no acute disease.. CT of the brain shows no acute hemorrhage, mass effect, or acute infarction. Patient started on cefepime 2 g IV, vancomycin 1 g IV for bandemia. I discussed results with the patient's daughter. For the healthcare is paged for admission. Dr. Lee accepted admission. Sepsis Criteria SIRS Criteria (2 or more): WBC > 29596, < 4000 or > 10% bands Diagnosis Primary Impression: Generalized weakness Additional Impressions: Acute confusion Hypotension Qualified Codes: I95.9 - Hypotension, unspecified Bandemia Atrial fibrillation Qualified Codes: I48.91 - Unspecified atrial fibrillation Admitting Information Admitting Physician Requests: Admit Kyra Resendez Jun 07, 2017 13:57
[2017-06-07] MEDS ORDERED: SODIUM CHLORIDE 0.9% FLUSH 10 ML FLUSH IV FLUSH PRN ×2 (14:00→17:00)
[2017-06-07 14:27] LABS: AUTOMATED NEUTROPHIL # 2.3 TH/MM3 (1.8-7.7); BASOPHIL % 0.8 % (0.0-2.0); EOSINOPHIL % 0.1 % (0.0-4.0); HEMATOCRIT 38.6 % (39.0-51.0); HEMOGLOBIN 13.1 GM/DL (13.0-17.0); LYMPH % 20.6 % (9.0-44.0); LYMPHOCYTE # 0.6 TH/MM3 (1.0-4.8); MEAN CELL VOLUME 87.3 FL (80.0-100.0); MEAN CORPUSCULAR HEMOGLOBIN 29.7 PG (27.0-34.0); MEAN CORPUSCULAR HGB CONC 34.1 % (32.0-36.0); MEAN PLATELET VOLUME 8.6 FL (7.0-11.0); MONO % 3.8 % (0.0-8.0); MONOCYTE # 0.1 TH/MM3 (0-0.9); NEUT % 74.7 % (16.0-70.0); PLATELET COUNT 58 TH/MM3 (150-450); RED BLOOD COUNT 4.42 MIL/MM3 (4.50-5.90); RED CELL DISTRIBUTION WIDTH 13.7 % (11.6-17.2); WHITE BLOOD COUNT 3.1 TH/MM3 (4.0-11.0)
[2017-06-07] MEDS ORDERED: TYLE325T PO (14:29)
[2017-06-07] MEDS ORDERED: GLUC500T4 PO (14:29)
[2017-06-07] MEDS ORDERED: MECL12.574 PO (14:29)
[2017-06-07 14:39] LABS: INTERNATIONAL NORMALIZED RATIO 1.3 RATIO; PROTHROMBIN TIME - PATIENT 12.7 SEC (9.8-11.6)
--- NOTE | 2017-06-07 14:39 | RADRPT ---
EXAM DATE/TIME: 06/07/2017 14:27 [facility] COMPARISON: CT BRAIN W/O CONTRAST, May 27, 2017, 13:51. INDICATIONS : Increasing weakness RADIATION DOSE: 36.65 CTDIvol (mGy) MEDICAL HISTORY : Cardiovascular disease. Cerebrovascular disease. Hypertension.Kidney Cancer, Prostate Cancer SURGICAL HISTORY : None. ENCOUNTER: Initial ACUITY: 1 day PAIN SCALE: Non-responsive LOCATION: cranial TECHNIQUE: Multiple contiguous axial images were obtained of the head. Using automated exposure control and adj ustment of the mA and/or kV according to patient size, radiation dose was kept as low as reasonably a chievable to obtain optimal diagnostic quality images. DICOM format image data is available electro nically for review and comparison. FINDINGS: CEREBRUM: The ventricles are stable and unremarkable in appearance. There is diffuse atrophic change again note d. Chronic small vessel ischemic changes again noted as well as an old areas of infarction involving the right thalamic and posterior limb of the internal capsule. No evidence of midline shift, mass les ion, hemorrhage or acute infarction. No extra-axial fluid collections are seen. POSTERIOR FOSSA: The cerebellum and brainstem are intact. The 4th ventricle is midline. The cerebellopontine angle i s unremarkable. EXTRACRANIAL: The visualized portion of the orbits is intact. SKULL: The calvaria is intact. No evidence of skull fracture. CONCLUSION: 1. No acute hemorrhage, mass effect or acute infarction. 2. Stable atrophy and old areas of infarction. Ariel Liang MD on June 07, 2017 at 14:33 Board Certified Radiologist. This report was verified electronically.
[2017-06-07 14:45] LABS: ALBUMIN 2.7 GM/DL (3.4-5.0); ALT (GPT) 84 U/L (12-78); AST (GOT) 76 U/L (15-37); BICARBONATE 27.8 MEQ/L (21.0-32.0); CALCIUM 9.5 MG/DL (8.5-10.1); CHLORIDE 96 MEQ/L (98-107); CREATININE 1.69 MG/DL (0.60-1.30); GLOMERULAR FILTRATION RATE 40 ML/MIN (>89); GLUCOSE,RANDOM 126 MG/DL (74-106); SODIUM (NA) 130 MEQ/L (136-145)
[2017-06-07 14:55] LABS: ALKALINE PHOSPHATASE 98 U/L (45-117); BLOOD UREA NITROGEN 41 MG/DL (7-18); TOTAL BILIRUBIN ADULT 0.7 MG/DL (0.2-1.0); TOTAL PROTEIN 5.5 GM/DL (6.4-8.2); TROPONIN I 0.05 NG/ML (0.02-0.05)
--- NOTE | 2017-06-07 15:06 | RADRPT ---
EXAM DATE/TIME: 06/07/2017 14:41 [facility] COMPARISON: CHEST SINGLE AP, July 17, 2016, 7:44. INDICATIONS : Increasing weakness, short of breath, possible altered mental status MEDICAL HISTORY : Cardiovascular disease. Cerebrovascular disease. Hypertension. kidney cancer, prostate cancer SURGICAL HISTORY : heart valve replaced ENCOUNTER: Initial ACUITY: 1 day PAIN SCORE: 0/10 LOCATION: Bilateral chest FINDINGS: A single view of the chest demonstrates the lungs to be symmetrically aerated without evidence of mas s, infiltrate or effusion. The cardiomediastinal contours are unremarkable. Osseous structures are intact. The patient is again noted to be status post median sternotomy. Moderate scoliosis of the tho racic and lumbar spine are again noted. There are overlying electrocardiogram leads. CONCLUSION: No acute disease. Ariel Liang MD on June 07, 2017 at 15:04 Board Certified Radiologist. This report was verified electronically.
[2017-06-07 15:23] LABS: BANDS 11 % (0-6); BASOPHILS 1 % (0-2); LYMPHOCYTES 8 % (9-44); MONOCYTES 3 % (0-8); NEUTROPHIL # MANUAL DIFF 2.7 TH/MM3 (1.8-7.7); POLYS (SEG NEUTROPHILS) 77 % (16-70)
[2017-06-07 15:56] LABS: BACTERIA, URINE RARE /hpf; BILIRUBIN, URINE NEG (NEG); BLOOD, URINE NEG (NEG); CALCIUM OXALATE CRYSTALS,URINE OCC /hpf; GLUCOSE,URINE NEG (NEG); KETONE, URINE NEG (NEG); NITRITE,URINE NEG (NEG); PH, URINE 5.5 (5.0-8.5); URINE COLOR YELLOW (YELLW/STRAW); URINE LEUKOCYTE ESTERASE NEG (NEG)
[2017-06-07] MEDS ORDERED: CEFEPIME INJ 2,000 MG in SODIUM CHLORIDE 0.9% INJ 100 ML IV ONE (16:15)
[2017-06-07] MEDS ORDERED: VANCOMYCIN INJ 200 ML IV ONE (16:15)
--- NOTE | 2017-06-07 16:33 | HHI.HP ---
HPI Service CP Hospitalists Primary Care Physician Unknown Admission Diagnosis hyponatremia Chief Complaint: generalized weakness Travel History International Travel<30 Days: No Contact w/Intl Traveler <30 Da: No Traveled to Known Affected Are: No History of Present Illness Pt is a 75 y/o M with h/o renal cancer, prostate cancer, (per daughter colon cancer), HTN, hyperlipidemia, CKD, s/p AV replacement by [employer] Nik Trifecta and s/p MV repair by annuloplasty with [employer] Nik Ring. Patient is currently confused and seems to be a poor historian. Patient is alert and oriented to person, place, but not time and will say sentences that do not make sense. Information per patient's daughter and review of prior charting. Patient's daughter reports that since patient's has been requiring more assistance with ambulation and ADLs. Patient has also had a decreasing appetite family has been giving him boost to supplement his meals. Today patient had diaphoretic episode with hypotension and was unable to stand. EMS was called and per daughter patient's SBP was in the 70s. Denies abdominal N/V/C/D, fevers of chills Patient had ER visit 05/27/17 treated for dehydration and hyponatremia given 1 L NS and DC home Pt was treated [place] [facility] [place]A. Pt presented with left hemiplegia. 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 Patient was seen by Dr. Ambriz was start on Eliquis, aspirin and plavix was DC'd. Patient also treated 02/15/16 for pericardial effusion and underwent CT guided drainage by IR. Pt was then readmitted 02/13 - 02/17/17 with recurrent pericardial effusion with tamponade physiology. Pt was taken back to the OR by Dr. Michelle Velasco and underwent surgical drainage of pericardial effusion via pericardial window. Review of Systems Constitutional: COMPLAINS OF: Fatigue, DENIES: Fever, Chills Eyes: DENIES: Blurred vision, Diplopia, Vision loss Respiratory: DENIES: Cough, Sputum production, Shortness of breath Cardiovascular: DENIES: Chest pain, Palpitations, Lower Extremity Edema Gastrointestinal: COMPLAINS OF: Anorexia, DENIES: Abdominal pain Neurologic: COMPLAINS OF: Poor Balance Psychiatric: COMPLAINS OF: Confusion Past Family Social History Past Medical History 1) s/p AV replacement with [employer] Nik Trifecta, bioprosthetic by Dr. Michelle Velasco 01/03/16 2) s/p MV repair by annuloplasty with St[employer] Nik Ring 01/03/16 3) Rehospitalization 02/05/[address] guided pericardial centesis 4) Rehospitalization 02/13 - 02/17/17 for recurrent pericardial effusion with tamponade requiring surgical drainage by Dr. 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 Wallace - s/p radiation therapy Past Surgical History 1) s/p AV replacement with [employer] Nik Trifecta, bioprosthetic by Dr. Michelle Velasco 01/03/16 2) s/p MV repair by annuloplasty with St[employer] Nik Ring 01/03/16 3) Rehospitalization 02/05/[address] guided pericardial centesis 4) Rehospitalization 02/13 - 02/17/17 for recurrent pericardial effusion with tamponade requiring surgical drainage by Dr. Velasco 5) Prostate biopsy 6) Colonoscopy 7) Right Nephrectomy d/t RCC 8) Inguinal hernial repair 9) Hemorrhoidectomy Reported Medications Protonix (Pantoprazole Sodium) 20 Mg Tab 20 Mg PO DAILY 30 Days Nitrostat SL (Nitroglycerin) 0.4 Mg Subl 0.4 Mg SL Q6HR PRN 30 Days Thera/Beta-Carotene (Multiple Vitamin) 1 Tab Tab 1 Tab PO DAILY 30 Days Melatonin 5 Mg Tab 5 Mg PO HS 10 Days Dok (Docusate Sodium) 100 Mg Cap 100 Mg PO BID 30 Days Lipitor (Atorvastatin Calcium) 40 Mg Tab 40 Mg PO HS 30 Days Eliquis (Apixaban) 5 Mg Tab 5 Mg PO BID 30 Days Tylenol (Acetaminophen) 325 Mg Tab 500 Mg PO Q6H PRN Glucosamine-Chondroitin 500-400 Mg Tab 1 Tab PO DAILY Meclizine (Meclizine HCl) 12.5 Mg Tab 12.5 Mg PO DIRECTED PRN Ferrous Sulfate 325 Mg (65 Mg Iron) Tablet 325 Mg PO BIDPC Allergies: Coded Allergies: benazepril (Unverified Allergy, Severe, 01/11/17) ciprofloxacin (Unverified Allergy, Severe, 01/11/17) ibuprofen (Unverified Allergy, Unknown, 01/11/17) diatrizoate meglumine (Unverified Adverse Reaction, Unknown, 01/11/17) Pt has one Kidney gadobenic acid (Unverified Adverse Reaction, Unknown, 01/11/17) Pt has one Kidney gadodiamide (Unverified Adverse Reaction, Unknown, 01/11/17) Pt has one Kidney gadoteridol (Unverified Adverse Reaction, Unknown, 01/11/17) Pt has one Kidney iodixanol (Unverified Adverse Reaction, Unknown, 01/11/17) Pt has one Kidney iohexol (Unverified Adverse Reaction, Unknown, 01/11/17) Pt has one Kidney Active Ordered Medications Current Medications Medications (Trade) Dose Ordered Sig/Kirti Route Start Time Stop Time Status Last Admin (NS Flush) 2 ml UNSCH PRN IV FLUSH 06/07/17 14:00 Vancomycin/Sodium Chloride 200 ml @ 200 mls/hr ONCE ONCE IV 06/07/17 16:15 06/07/17 17:14 Cefepime HCl 2000 mg/Sodium Chloride 100 ml @ 200 mls/hr ONCE ONCE IV 06/07/17 16:15 06/07/17 16:44 Family History Non-contributory Social History - - 2 children, one of whom is employed at [employer] in Risk Mgmt - 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 Cool and dry. HEAD: Atraumatic. Normocephalic. No temporal or scalp tenderness. EYES: Extraocular motions intact. No scleral icterus. No injection or drainage. CARDIOVASCULAR: Irregular with murmur RESPIRATORY: Clear to auscultation. Breath sounds equal bilaterally. GASTROINTESTINAL: Abdomen soft, non-tender, nondistended. No hepato-splenomegaly , or palpable masses. No guarding. MUSCULOSKELETAL: Extremities without clubbing, cyanosis, or edema. No joint tenderness, effusion, or edema noted. No calf tenderness. Negative Homans sign bilaterally. NEUROLOGICAL: Awake and alert. Motor and sensory grossly within normal limits. 3-4 out of 5 muscle strength in all muscle groups. Normal speech. Laboratory Laboratory Tests Test 06/07/17 14:00 06/07/17 14:05 06/07/17 15:06 White Blood Count 3.1 Red Blood Count 4.42 Hemoglobin 13.1 Hematocrit 38.6 Mean Corpuscular Volume 87.3 Mean Corpuscular Hemoglobin 29.7 Mean Corpuscular Hemoglobin Concent 34.1 Red Cell Distribution Width 13.7 Platelet Count 58 Mean Platelet Volume 8.6 Neutrophils (%) (Auto) 74.7 Lymphocytes (%) (Auto) 20.6 Monocytes (%) (Auto) 3.8 Eosinophils (%) (Auto) 0.1 Basophils (%) (Auto) 0.8 Neutrophils # (Auto) 2.3 Lymphocytes # (Auto) 0.6 Monocytes # (Auto) 0.1 Eosinophils # (Auto) 0.0 Basophils # (Auto) 0.0 CBC Comment AUTO DIFF Differential Total Cells Counted 100 Neutrophils % (Manual) 77 Band Neutrophils % 11 Lymphocytes % 8 Monocytes % 3 Basophils % 1 Neutrophils # (Manual) 2.7 Differential Comment FINAL DIFF MANUAL Platelet Estimate LOW Platelet Morphology Comment NORMAL Prothrombin Time 12.7 Prothromb Time International Ratio 1.3 Activated Partial Thromboplast Time 31.7 Blood Urea Nitrogen 41 Creatinine 1.69 Random Glucose 126 Total Protein 5.5 Albumin 2.7 Calcium Level 9.5 Alkaline Phosphatase 98 Aspartate Amino Transf (AST/SGOT) 76 Alanine Aminotransferase (ALT/SGPT) 84 Total Bilirubin 0.7 Sodium Level 130 Potassium Level 4.9 Chloride Level 96 Carbon Dioxide Level 27.8 Anion Gap 6 Estimat Glomerular Filtration Rate 40 Total Creatine Kinase 99 Troponin I 0.05 Lactic Acid Level 1.0 Ammonia 26 Urine Color YELLOW Urine Turbidity CLEAR Urine pH 5.5 Urine Specific [place] 1.017 Urine Protein 30 Urine Glucose (UA) NEG Urine Ketones NEG Urine Occult Blood NEG Urine Nitrite NEG Urine Bilirubin NEG Urine Urobilinogen LESS THAN 2.0 Urine Leukocyte Esterase NEG Urine WBC 2 Urine Calcium Oxalate Crystals OCC Urine Bacteria RARE Microscopic Urinalysis Comment CATH-CULT NOT IND Date/Time Source Procedure Growth Status 06/07/17 14:00 Blood Peripheral Aerobic Blood Culture Pending Received 06/07/17 14:00 Blood Peripheral Anaerobic Blood Culture Pending Received Result Diagram: 06/07/17 1400 06/07/17 1400 Imaging Last Impressions Head CT 06/07/17 1347 Signed Impressions: Service Date/Time: Wednesday, June 07, 2017 14:27 - CONCLUSION: 1. No acute hemorrhage, mass effect or acute infarction. 2. Stable atrophy and old areas of infarction. Ariel Liang MD Chest X-Ray 06/07/177 Signed Impressions: Service Date/Time: Wednesday, June 07, 2017 14:41 - CONCLUSION: No acute disease. MD Justin Staples VTE Risk Assessment Justin VTE Risk Assessment: Mod/High Risk (score >= 2) Caprini Risk Assessment Model Point Value = 1 Point Value = 2 Point Value = 3 Point Value = 5 Age 41-60 Minor surgery BMI > 25 kg/m2 Swollen legs Varicose veins or History of unexplained or recurrent spontaneous Oral contraceptives or hormone replacement Sepsis (< 1 month) Serious lung disease, including pneumonia (< 1 month) Abnormal pulmonary function Acute myocardial infarction Congestive heart failure (< 1 month) History of inflammatory bowel disease Medical patient at bed rest Age 61-74 Arthroscopic surgery Major open surgery (> 45 min) Laparoscopic surgery (> 45 min) Malignancy Confined to bed (> 72 hours) Immobilizing plaster cast Central venous access Age >= 75 History of VTE Family history of VTE Factor V Leiden Prothrombin [id number] Lupus anticoagulant Anticardiolipin antibodies Elevated serum homocysteine Heparin-induced thrombocytopenia Other congenital or acquired thrombophilia Stroke (< 1 month) Elective arthroplasty Hip, pelvis, or leg fracture Acute spinal cord injury (< 1 month) Prophylaxis Regimen Total Risk Factor Score Risk Level Prophylaxis Regimen 0-1 Low Early ambulation 2 Moderate Order ONE of the following: *Sequential Compression Device (SCD) *Heparin 5000 units SQ BID 3-4 Higher Order ONE of the following medications: *Heparin 5000 units SQ TID *Enoxaparin/Lovenox 40 mg SQ daily (WT < 150 kg, CrCl > 30 mL/min) *Enoxaparin/Lovenox 30 mg SQ daily (WT < 150 kg, CrCl > 10-29 mL/min) *Enoxaparin/Lovenox 30 mg SQ BID (WT < 150 kg, CrCl > 30 mL/min) AND/OR *Sequential Compression Device (SCD) 5 or more Highest Order ONE of the following medications: *Heparin 5000 units SQ TID (Preferred with Epidurals) *Enoxaparin/Lovenox 40 mg SQ daily (WT < 150 kg, CrCl > 30 mL/min) *Enoxaparin/Lovenox 30 mg SQ daily (WT < 150 kg, CrCl > 10-29 mL/min) *Enoxaparin/Lovenox 30 mg SQ BID (WT < 150 kg, CrCl > 30 mL/min) AND *Sequential Compression Device (SCD) Assessment and Plan Problem List: (1) Generalized weakness ICD Codes: R53.1 - Weakness Status: Acute Plan: BC pending Monitor telemetry IV hydration recheck CBC and CMP in AM (2) Dehydration ICD Codes: E86.0 - Dehydration (3) Hyponatremia ICD Codes: E87.1 - Hypo-osmolality and hyponatremia (4) Impaired mobility and activities of daily living ICD Codes: Z74.09 - Other reduced mobility Status: Acute (5) Failure to thrive in adult ICD Codes: R62.7 - Adult failure to thrive Carmela Petersen Jun 07, 2017 16:33
[2017-06-07] MEDS ORDERED: NALOXONE HCL 0.4 MG/ML AMP IV PUSH PRN (17:00)
[2017-06-07] MEDS ORDERED: ONDANSETRON HCL 4 MG/2 ML VIAL IVP PRN (17:00)
[2017-06-07] MEDS ORDERED: VANCOMYCIN INJ 1,000 MG in SODIUM CHLOR 0.9% 250 ML INJ 250 ML IV STA (17:36)
[2017-06-07] MEDS: FERROUS SULFATE 325 MG (65 MG ELEMENTAL IRON) TAB PO SCH (19:06)
[2017-06-07] MEDS: SODIUM CHLOR 0.9% 1000 ML INJ 1,000 ML IV SCH (19:06)
[2017-06-07] MEDS ORDERED: MAGNESIUM HYDROXIDE SUSP 30 ML CUP PO PRN (21:00)
[2017-06-07] MEDS: SODIUM CHLORIDE 0.9% FLUSH 10 ML FLUSH IV FLUSH SCH (21:00)
[2017-06-07] MEDS ORDERED: LORazepam 1 MG TAB PO ONE (21:30)
[2017-06-07] MEDS: DOCUSATE SODIUM 50 MG/SENNA 8.6 MG TAB PO SCH (21:59)
[2017-06-07] MEDS: DOCUSATE SODIUM 100 MG CAP PO SCH (21:59)
[2017-06-07] MEDS: APIXABAN 2.5 MG TABLET PO SCH (22:00)
[2017-06-08] VITALS (9 sets, daily range): BP systolic 97–144; BP diastolic 70–99; PULSE 86–119; RESP 16–25; TEMP 98.2–101; O2SAT 92–94
[2017-06-08] MEDS: LORazepam 2 MG/ML VIAL IV PRN ×2 (02:39→07:38)
[2017-06-08] MEDS: SODIUM CHLOR 0.9% 1000 ML INJ 1,000 ML IV SCH ×2 (06:10→18:39)
[2017-06-08] MEDS: APIXABAN 2.5 MG TABLET PO SCH ×2 (09:00→21:00)
[2017-06-08] MEDS: PANTOPRAZOLE SOD 20 MG DELAYED RELEASE TAB PO SCH (09:00)
[2017-06-08] MEDS: FERROUS SULFATE 325 MG (65 MG ELEMENTAL IRON) TAB PO SCH ×2 (09:00→17:29)
[2017-06-08] MEDS: DOCUSATE SODIUM 100 MG CAP PO SCH ×2 (09:00→21:00)
[2017-06-08] MEDS: SODIUM CHLORIDE 0.9% FLUSH 10 ML FLUSH IV FLUSH SCH ×2 (09:00→21:00)
[2017-06-08] MEDS: DOCUSATE SODIUM 50 MG/SENNA 8.6 MG TAB PO SCH ×2 (09:00→21:00)
[2017-06-08 11:54] LABS: AUTOMATED NEUTROPHIL # 2.1 TH/MM3 (1.8-7.7); BASOPHIL % 1.5 % (0.0-2.0); EOSINOPHIL % 0.1 % (0.0-4.0); HEMATOCRIT 33.3 % (39.0-51.0); HEMOGLOBIN 11.5 GM/DL (13.0-17.0); LYMPH % 19.4 % (9.0-44.0); LYMPHOCYTE # 0.5 TH/MM3 (1.0-4.8); MEAN CELL VOLUME 86.5 FL (80.0-100.0); MEAN CORPUSCULAR HEMOGLOBIN 29.8 PG (27.0-34.0); MEAN CORPUSCULAR HGB CONC 34.5 % (32.0-36.0); MEAN PLATELET VOLUME 8.3 FL (7.0-11.0); MONO % 3.6 % (0.0-8.0); MONOCYTE # 0.1 TH/MM3 (0-0.9); NEUT % 75.4 % (16.0-70.0); PLATELET COUNT 61 TH/MM3 (150-450); RED BLOOD COUNT 3.84 MIL/MM3 (4.50-5.90); RED CELL DISTRIBUTION WIDTH 13.5 % (11.6-17.2); WHITE BLOOD COUNT 2.8 TH/MM3 (4.0-11.0)
--- NOTE | 2017-06-08 12:02 | HHI.PR ---
Subjective Remarks Pt very lethargic and confused this morning He received Ativan at 7:38 this morning Objective Vitals Vital Signs Date Time Temp Pulse Resp B/P (MAP) Pulse Ox O2 Delivery O2 Flow Rate FiO2 06/08/17 11:26 98.2 119 18 144/94 (111) 94 06/08/17 08:05 113 06/08/17 07:31 99.2 119 20 136/96 (109) 94 06/08/17 03:38 99.0 88 16 122/70 (87) 94 06/07/17 23:30 98.5 78 18 111/7 (41) 94 06/07/17 20:00 98.1 91 16 92/59 (70) 97 06/07/17 17:26 85 16 99/72 (81) 97 Room Air 06/07/17 17:05 81 17 105/73 (84) 95 Room Air 06/07/17 15:00 84 18 99/72 (81) Room Air 96 06/07/17 14:20 96 Room Air 06/07/17 14:00 86 18 92/64 (73) 96 Room Air 06/07/17 13:27 97.5 89 18 92/63 (73) 95 Result Diagram: 06/07/17 1400 06/07/17 1400 Other Results Laboratory Tests Test 06/07/17 14:00 06/07/17 14:05 06/07/17 15:06 06/08/17 11:11 White Blood Count 3.1 TH/MM3 Red Blood Count 4.42 MIL/MM3 Hemoglobin 13.1 GM/DL Hematocrit 38.6 % Mean Corpuscular Volume 87.3 FL Mean Corpuscular Hemoglobin 29.7 PG Mean Corpuscular Hemoglobin Concent 34.1 % Red Cell Distribution Width 13.7 % Platelet Count 58 TH/MM3 Mean Platelet Volume 8.6 FL Neutrophils (%) (Auto) 74.7 % Lymphocytes (%) (Auto) 20.6 % Monocytes (%) (Auto) 3.8 % Eosinophils (%) (Auto) 0.1 % Basophils (%) (Auto) 0.8 % Neutrophils # (Auto) 2.3 TH/MM3 Lymphocytes # (Auto) 0.6 TH/MM3 Monocytes # (Auto) 0.1 TH/MM3 Eosinophils # (Auto) 0.0 TH/MM3 Basophils # (Auto) 0.0 TH/MM3 CBC Comment AUTO DIFF Differential Total Cells Counted 100 Neutrophils % (Manual) 77 % Band Neutrophils % 11 % Lymphocytes % 8 % Monocytes % 3 % Basophils % 1 % Neutrophils # (Manual) 2.7 TH/MM3 Differential Comment FINAL DIFF MANUAL Platelet Estimate LOW Platelet Morphology Comment NORMAL Prothrombin Time 12.7 SEC Prothromb Time International Ratio 1.3 RATIO Activated Partial Thromboplast Time 31.7 SEC Blood Urea Nitrogen 41 MG/DL Creatinine 1.69 MG/DL Random Glucose 126 MG/DL Total Protein 5.5 GM/DL Albumin 2.7 GM/DL Calcium Level 9.5 MG/DL Alkaline Phosphatase 98 U/L Aspartate Amino Transf (AST/SGOT) 76 U/L Alanine Aminotransferase (ALT/SGPT) 84 U/L Total Bilirubin 0.7 MG/DL Sodium Level 130 MEQ/L Potassium Level 4.9 MEQ/L Chloride Level 96 MEQ/L Carbon Dioxide Level 27.8 MEQ/L Anion Gap 6 MEQ/L Estimat Glomerular Filtration Rate 40 ML/MIN Total Creatine Kinase 99 U/L Troponin I 0.05 NG/ML Lactic Acid Level 1.0 mmol/L Ammonia 26 MCMOL/L Urine Color YELLOW Urine Turbidity CLEAR Urine pH 5.5 Urine Specific [place] 1.017 Urine Protein 30 mg/dL Urine Glucose (UA) NEG mg/dL Urine Ketones NEG mg/dL Urine Occult Blood NEG Urine Nitrite NEG Urine Bilirubin NEG Urine Urobilinogen LESS THAN 2.0 MG/DL Urine Leukocyte Esterase NEG Urine WBC 2 /hpf Urine Calcium Oxalate Crystals OCC /hpf Urine Bacteria RARE /hpf Microscopic Urinalysis Comment CATH-CULT NOT IND Imaging Last Impressions Head CT 06/07/17 1347 Signed Impressions: Service Date/Time: Wednesday, June 07, 2017 14:27 - CONCLUSION: 1. No acute hemorrhage, mass effect or acute infarction. 2. Stable atrophy and old areas of infarction. Ariel Liang MD Chest X-Ray 06/07/17 1347 Signed Impressions: Service Date/Time: Wednesday, June 07, 2017 14:41 - CONCLUSION: No acute disease. Ariel Liang MD Objective Remarks General: Lethargic, confused Chest: CTA Cardiac: Irregular Abd: +BS, soft ND/NT Ext: No edema A/P Problem List: (1) Generalized weakness ICD Codes: R53.1 - Weakness Status: Acute Plan: - Pt is a 75 y/o male with h/o renal cancer, prostate cancer, (per daughter colon cancer), HTN, hyperlipidemia, CKD, s/p AV replacement by [employer] 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 Nik Ring. Generalized weakness Dehydration Hypotension Hyponatremia Poor PO intake/Failure to thrive - Pt [place] [facility] [place] increased generalized weakness and hypotension. - He has had a poor appetite with decreased po intake as well. - Patient's daughter reported that since he's been requiring more assistance with ambulation and ADLs. - Upon arrival to the ED pts BP was in the 90's systolic - He was given a dose of Vancomycin and Cefepime in the ED - BC were drawn in the ED with NGTD. - Pt was continued on IVF - Telemetry - ST evaluation on 06/08 noted pt with significant dysphagia felt to be secondary to AMS and recommended NPO status - Pt did receive IV Ativan this morning which may be contributing to some of the lethargy and increased confusion this morning. - Repeat labs for today are pending for today (2) Dehydration ICD Codes: E86.0 - Dehydration (3) Hyponatremia ICD Codes: E87.1 - Hypo-osmolality and hyponatremia (4) Impaired mobility and activities of daily living ICD Codes: Z74.09 - Other reduced mobility Status: Acute (5) Failure to thrive in adult ICD Codes: R62.7 - Adult failure to thrive Assessment and Plan Patient examined. Assessment and plan formulated with Alexandria Mccullough PA-C. I agree with the above. ftt. poor po intake. dehydration/hyponatremia now pt more confused and sedated from ativan spoke with daughter. discussed pancytopenia and ?etiology. she has decided on dnr. we will move him to another room with window, stop ativan and see if we can get his mental status a little better and decide if ?home vs hospice is the correct direction. Alexandria Mccullough Jun 08, 2017 12:02 Bradford Lee MD Jun 08, 2017 13:58
[2017-06-08 12:29] LABS: ALBUMIN 2.3 GM/DL (3.4-5.0); ALT (GPT) 69 U/L (12-78); AST (GOT) 65 U/L (15-37); BICARBONATE 23.5 MEQ/L (21.0-32.0); CALCIUM 8.6 MG/DL (8.5-10.1); CHLORIDE 99 MEQ/L (98-107); CREATININE 1.43 MG/DL (0.60-1.30); GLOMERULAR FILTRATION RATE 48 ML/MIN (>89); GLUCOSE,RANDOM 119 MG/DL (74-106); SODIUM (NA) 132 MEQ/L (136-145)
[2017-06-08 12:38] LABS: ALKALINE PHOSPHATASE 78 U/L (45-117); BLOOD UREA NITROGEN 31 MG/DL (7-18); TOTAL BILIRUBIN ADULT 0.7 MG/DL (0.2-1.0); TOTAL PROTEIN 4.6 GM/DL (6.4-8.2)
[2017-06-08] MEDS ORDERED: LORazepam 2 MG/ML VIAL IV PRN (13:00)
[2017-06-08] MEDS ORDERED: LORazepam 2 MG/ML VIAL IV PUSH PRN (18:15)
[2017-06-08] MEDS ORDERED: ACETAMINOPHEN 1000 MG/100 ML 100 ML IV PRN (20:45)
[2017-06-08] MEDS ORDERED: ACETAMINOPHEN 1000 MG/100 ML 65 ML IV ONE (20:45)
[2017-06-08] MEDS: PIPERACIL-TAZO 3.375 GM PREMIX 50 ML IV SCH (21:23)
--- NOTE | 2017-06-08 22:12 | EKG ---
Date Performed: 06/07/2017 Time Performed: 13:34:12 PTAGE: 76 years EKG: ATRIAL FIBRILLATION ABNORMAL RHYTHM ECG PREVIOUS TRACING : 05/27/2017 16.10 Compared to the previous tracing SR no longer present DOCTOR: Vel Ortiz Interpretating Date/Time 06/08/2017 22:10:24
[2017-06-09] VITALS (10 sets, daily range): BP systolic 112–160; BP diastolic 78–96; PULSE 90–129; RESP 18–22; TEMP 97.8–99.8; O2SAT 93–99
[2017-06-09] MEDS: PIPERACIL-TAZO 3.375 GM PREMIX 50 ML IV SCH ×4 (03:23→21:05)
--- NOTE | 2017-06-09 06:24 | RADRPT ---
EXAM DATE/TIME: 06/09/2017 05:59 [facility] COMPARISON: CHEST SINGLE AP, June 07, 2017, 14:41. INDICATIONS : Fever MEDICAL HISTORY : Cardiovascular disease. Cerebrovascular disease. Hypertension. kidney cancer, prostate cancer SURGICAL HISTORY : heart valve replaced ENCOUNTER: Initial ACUITY: 1 day PAIN SCORE: Non-responsive. LOCATION: Bilateral chest FINDINGS: The cardiac silhouette is normal in transverse diameter. Median sternotomy wires are present. There i s prominence of the central pulmonary vasculature with indistinct vascular margins compatible with va scular congestion but no evidence of overt failure. There is subsegmental atelectasis in the both ba ses. Prosthetic valve is present CONCLUSION: 1. Cardiomegaly and findings of vascular congestion without overt failure. The findings have worsened when compared with the prior examination. Tre Jacques MD on June 09, 2017 at 6:22 Board Certified Radiologist. This report was verified electronically.
[2017-06-09] MEDS: SODIUM CHLOR 0.9% 1000 ML INJ 1,000 ML IV SCH (09:31)
[2017-06-09] MEDS: SODIUM CHLORIDE 0.9% FLUSH 10 ML FLUSH IV FLUSH SCH ×2 (09:32→21:06)
--- NOTE | 2017-06-09 09:40 | HHI.PR ---
Subjective Remarks Pt is in restraints but he is more awake today He is able to answer some questions, his daughters name, questions about his dog and family Pts daytime cardiac care nurse, Nilsa, is at bedside and feels that he is more appropriate today Pt last received Ativan yesterday evening at 1840 He did have a fever last night of 101 and was started on Zosyn Objective Vitals Vital Signs Date Time Temp Pulse Resp B/P (MAP) Pulse Ox O2 Delivery O2 Flow Rate FiO2 06/09/17 08:08 99.8 129 18 129/96 (107) 99 06/09/17 07:30 123 06/09/17 05:02 98.6 06/09/17 04:01 96 06/09/17 03:31 92 19 160/96 (117) 95 06/08/17 23:29 98.6 86 20 97/70 (79) 92 06/08/17 20:14 101.0 114 25 137/99 (112) 94 06/08/17 16:03 105 06/08/17 15:16 98.2 86 18 136/87 (103) 94 06/08/17 12:42 101 06/08/17 11:26 98.2 119 18 144/94 (111) 94 Result Diagram: 06/08/17 1111 06/08/17 1111 Other Results Laboratory Tests Test 06/07/17 14:00 06/07/17 14:05 06/07/17 15:06 06/08/17 11:11 White Blood Count 3.1 TH/MM3 2.8 TH/MM3 Red Blood Count 4.42 MIL/MM3 3.84 MIL/MM3 Hemoglobin 13.1 GM/DL 11.5 GM/DL Hematocrit 38.6 % 33.3 % Mean Corpuscular Volume 87.3 FL 86.5 FL Mean Corpuscular Hemoglobin 29.7 PG 29.8 PG Mean Corpuscular Hemoglobin Concent 34.1 % 34.5 % Red Cell Distribution Width 13.7 % 13.5 % Platelet Count 58 TH/MM3 61 TH/MM3 Mean Platelet Volume 8.6 FL 8.3 FL Neutrophils (%) (Auto) 74.7 % 75.4 % Lymphocytes (%) (Auto) 20.6 % 19.4 % Monocytes (%) (Auto) 3.8 % 3.6 % Eosinophils (%) (Auto) 0.1 % 0.1 % Basophils (%) (Auto) 0.8 % 1.5 % Neutrophils # (Auto) 2.3 TH/MM3 2.1 TH/MM3 Lymphocytes # (Auto) 0.6 TH/MM3 0.5 TH/MM3 Monocytes # (Auto) 0.1 TH/MM3 0.1 TH/MM3 Eosinophils # (Auto) 0.0 TH/MM3 0.0 TH/MM3 Basophils # (Auto) 0.0 TH/MM3 0.0 TH/MM3 CBC Comment AUTO DIFF AUTO DIFF Differential Total Cells Counted 100 Neutrophils % (Manual) 77 % Band Neutrophils % 11 % Lymphocytes % 8 % Monocytes % 3 % Basophils % 1 % Neutrophils # (Manual) 2.7 TH/MM3 Differential Comment FINAL DIFF MANUAL AUTO DIFF CONFIRMED Platelet Estimate LOW Platelet Morphology Comment NORMAL Prothrombin Time 12.7 SEC Prothromb Time International Ratio 1.3 RATIO Activated Partial Thromboplast Time 31.7 SEC Blood Urea Nitrogen 41 MG/DL 31 MG/DL Creatinine 1.69 MG/DL 1.43 MG/DL Random Glucose 126 MG/DL 119 MG/DL Total Protein 5.5 GM/DL 4.6 GM/DL Albumin 2.7 GM/DL 2.3 GM/DL Calcium Level 9.5 MG/DL 8.6 MG/DL Alkaline Phosphatase 98 U/L 78 U/L Aspartate Amino Transf (AST/SGOT) 76 U/L 65 U/L Alanine Aminotransferase (ALT/SGPT) 84 U/L 69 U/L Total Bilirubin 0.7 MG/DL 0.7 MG/DL Sodium Level 130 MEQ/L 132 MEQ/L Potassium Level 4.9 MEQ/L 4.1 MEQ/L Chloride Level 96 MEQ/L 99 MEQ/L Carbon Dioxide Level 27.8 MEQ/L 23.5 MEQ/L Anion Gap 6 MEQ/L 10 MEQ/L Estimat Glomerular Filtration Rate 40 ML/MIN 48 ML/MIN Total Creatine Kinase 99 U/L Troponin I 0.05 NG/ML Lactic Acid Level 1.0 mmol/L Ammonia 26 MCMOL/L Urine Color YELLOW Urine Turbidity CLEAR Urine pH 5.5 Urine Specific [place] 1.017 Urine Protein 30 mg/dL Urine Glucose (UA) NEG mg/dL Urine Ketones NEG mg/dL Urine Occult Blood NEG Urine Nitrite NEG Urine Bilirubin NEG Urine Urobilinogen LESS THAN 2.0 MG/DL Urine Leukocyte Esterase NEG Urine WBC 2 /hpf Urine Calcium Oxalate Crystals OCC /hpf Urine Bacteria RARE /hpf Microscopic Urinalysis Comment CATH-CULT NOT IND Vitamin B12 Level 817 PG/ML Thyroid Stimulating Hormone 3rd Gen 2.020 uIU/ML Imaging Last Impressions Chest X-Ray 06/09/17 0600 Signed Impressions: Service Date/Time: May 05:59 - CONCLUSION: 1. Cardiomegaly and findings of vascular congestion without overt failure. The findings have worsened when compared with the prior examination. Tre Jacques MD Head CT [id number] Signed Impressions: Service Date/Time: Wednesday, June 07, 2017 14:27 - CONCLUSION: 1. No acute hemorrhage, mass effect or acute infarction. 2. Stable atrophy and old areas of infarction. Ariel Liang MD Last Impressions Head CT [id number] Signed Impressions: Service Date/Time: Wednesday, June 07, 2017 14:27 - CONCLUSION: 1. No acute hemorrhage, mass effect or acute infarction. 2. Stable atrophy and old areas of infarction. Ariel Liang MD Chest X-Ray [id number] Signed Impressions: Service Date/Time: Wednesday, June 07, 2017 14:41 - CONCLUSION: No acute disease. Ariel Liang MD Objective Remarks General: More awake, oriented to self, confused Chest: CTA Cardiac: Irregular Abd: +BS, soft ND/NT Ext: No edema A/P Problem List: (1) Generalized weakness ICD Codes: R53.1 - Weakness Status: Acute Plan: - Pt is a 75 y/o male with h/o renal cancer, prostate cancer, (per daughter colon cancer), HTN, hyperlipidemia, CKD, s/p AV replacement by 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 Ring. Generalized weakness Dehydration Hypotension Hyponatremia Poor PO intake/Failure to thrive - Pt was brought to the ED at [facility] [place] for increased generalized weakness and hypotension. - He has had a poor appetite with decreased po intake as well. - Patient's daughter reported that since he's been requiring more assistance with ambulation and ADLs. - Upon arrival to the ED pts BP was in the 90's systolic - He was given a dose of Vancomycin and Cefepime in the ED - BC were drawn in the ED with NGTD. - Pt was continued on IVF - Telemetry - ST evaluation on 06/08 noted pt with significant dysphagia felt to be secondary to AMS and recommended NPO status - Pt did receive IV Ativan on 06/08 which may have been contributing to some of the lethargy and increased confusion that day - His Ativan dose was decreased to 0.5mg Q6H PRN which he last received on at 1840. - Pt is more awake and conversive this morning but is in restraints - Discussed with nurse trying to minimize any use of the Ativan - ST to re-evaluate today - Pts daughter decided on DNR code status on 06/08. - Placed ordered for full admission and transfer but no rooms available at this time. Pancytopenia Fever - Pt with noted pancytopenia and ?etiology. - Pt did spike a fever on 06/08 of 101 degrees. He was started on Zosyn on 03/16. - CXR (06/09) --> Cardiomegaly and findings of vascular congestion without overt failure. The findings have worsened when compared with the prior examination. - UA on 06/07 is negative - BC with NGTD, continue to monitor - Check CT Thorax/Abd/Pelvis to assess for any specific cause for the fevers (2) Dehydration ICD Codes: E86.0 - Dehydration (3) Hyponatremia ICD Codes: E87.1 - Hypo-osmolality and hyponatremia (4) Impaired mobility and activities of daily living ICD Codes: Z74.09 - Other reduced mobility Status: Acute (5) Failure to thrive in adult ICD Codes: R62.7 - Adult failure to thrive Assessment and Plan Patient examined. Assessment and plan formulated with Alexandria Mccullough PA-C. I agree with the above. still with AMS. fever last night. ct c/a/p today gentle ivf....mod diet today. cont abx. dnr now....If no improvement family considering hospice care. Alexandria Mccullough Jun 09, 2017 09:40 Bradford Lee MD Jun 09, 2017 13:17
[2017-06-09] MEDS: PANTOPRAZOLE SOD 20 MG DELAYED RELEASE TAB PO SCH (10:40)
[2017-06-09] MEDS: DOCUSATE SODIUM 50 MG/SENNA 8.6 MG TAB PO SCH ×2 (10:40→21:05)
[2017-06-09] MEDS: DOCUSATE SODIUM 100 MG CAP PO SCH ×2 (10:41→21:05)
[2017-06-09] MEDS: APIXABAN 2.5 MG TABLET PO SCH ×2 (10:41→21:05)
[2017-06-09] MEDS: FERROUS SULFATE 325 MG (65 MG ELEMENTAL IRON) TAB PO SCH ×2 (10:42→18:35)
--- NOTE | 2017-06-09 16:05 | RADRPT ---
EXAM DATE/TIME: 06/09/2017 14:02 [facility] COMPARISON: CT THORAX W/O CONTRAST, February 05, 2016, 15:22. INDICATIONS : Weakness, cough, fever RADIATION DOSE: 16.12 CTDIvol (mGy) ; Combined studies MEDICAL HISTORY : Cerebrovascular disease. Cardiovascular disease Hypertension. Prostate cancer, Kidney cancer, Inguina l hernia SURGICAL HISTORY : Right kidney removed ENCOUNTER: Initial ACUITY: 3 days PAIN SCALE: Non-responsive LOCATION: chest TECHNIQUE: Volumetric scanning of the chest was performed. Using automated exposure control and adjustment of t he mA and/or kV according to patient size, radiation dose was kept as low as reasonably achievable to obtain optimal diagnostic quality images. DICOM format image data is available electronically for r eview and comparison. Follow-up recommendations for detected pulmonary nodules are based at a minimum on nodule size and pa tient risk factors according to Fleischner Society Guidelines. FINDINGS: LUNGS: There is no pneumothorax. There is mild atelectasis in the dependent portions of the lung bases. No c oncerning pulmonary nodule is visualized. PLEURAE: There is a small left pleural effusion and minimal right pleural fluid. MEDIASTINUM: Postoperative changes are again noted status post median sternotomy. The previously noted pericardial effusion has resolved. The heart and great vessels demonstrate no acute abnormality. There is no me diastinal or hilar lymphadenopathy. Heart size remains enlarged. AXILLAE: Within normal limits. No lymphadenopathy. MUSCULOSKELETAL: Within normal limits for patient age. MISCELLANEOUS: The visualized upper abdominal organs demonstrate no acute abnormality. CONCLUSION: 1. Status post median sternotomy with stable postsurgical changes and cardiomegaly. 2. Small pleural effusions with mild atelectasis in the dependent portions of the lung bases. There i s no pulmonary edema. Ariel Liang MD on June 09, 2017 at 16:00 Board Certified Radiologist. This report was verified electronically.
--- NOTE | 2017-06-09 16:10 | RADRPT ---
EXAM DATE/TIME: 06/09/2017 14:02 [facility] COMPARISON: No previous studies available for comparison. INDICATIONS : Weakness, fever, cough ORAL CONTRAST: No oral contrast ingested. RADIATION DOSE: 16.12 CTDIvol (mGy) ; Combined studies MEDICAL HISTORY : Cardiovascular disease. Cerebrovascular disease. Hypertension.Prostate cancer, Kidney cancer, Inguin al hernia SURGICAL HISTORY : Right kidney removed ENCOUNTER: Initial ACUITY: 3 days PAIN SCALE: Non-responsive LOCATION: abdomen TECHNIQUE: Volumetric scanning of the abdomen and pelvis was performed. Using automated exposure control and ad justment of the mA and/or kV according to patient size, radiation dose was kept as low as reasonably achievable to obtain optimal diagnostic quality images. DICOM format image data is available electro nically for review and comparison. FINDINGS: LOWER LUNGS: There are small bilateral pleural effusions with mild apparent atelectasis in the dependent portions of lung bases. LIVER: Homogeneous density without lesion. There is no dilation of the biliary tree. There is a large calci fied gallstone present with no definite gallbladder wall thickening or inflammatory change. SPLEEN: There is mild splenomegaly. There is no focal mass.. PANCREAS: Within normal limits. KIDNEYS: Status post right nephrectomy. There are multiple cysts in the left kidney. There is a higher density cyst extending off the posterior lower pole. This measures 42 Hounsfield units in density measures u p to 1.8 cm. ADRENAL GLANDS: Within normal limits. VASCULAR: There is no aortic aneurysm. BOWEL/MESENTERY: The stomach, small bowel, and colon demonstrate no acute abnormality. There is no free intraperitone al air or fluid. ABDOMINAL WALL: Within normal limits. RETROPERITONEUM: There is no lymphadenopathy. BLADDER: No wall thickening or mass. REPRODUCTIVE: There are multiple radiation seed implants in the region of the prostate gland. INGUINAL: There is no lymphadenopathy or hernia. MUSCULOSKELETAL: Within normal limits for patient age. CONCLUSION: 1. Cholelithiasis with large calcified gallstone. There is no definite wall thickening or inflammator y change. 2. Multiple cystic structures in the left kidney. One of these is higher density and more indetermina te. This is located along the posterior lower pole. 3. Status post right nephrectomy. 4. There is mild splenomegaly. 5. Minimal pleural effusions. Ariel Liang MD on June 09, 2017 at 16:03 Board Certified Radiologist. This report was verified electronically.
[2017-06-10] MEDS ORDERED: PIPERACILLIN/TAZ 3.375 GM VIAL 3.375 GM in SODIUM CHLORIDE 0.9% INJ 100 ML IV SCH (03:00)
== END 2017-06-09 21:57 | disposition hospice, inpatient (51) | DRG 641 ==
LOC: NEPE 13:20 → INTOOBSV 16:21 → NEDA 16:21 → NEPFCDU 19:10 → OBSVTOIN 06-08 12:49 → NEPFCDU 06-09 00:14 → NEDA 06-09 00:14
PROVIDERS: ADMIT Hospitalist; ATTEND Hospitalist
DX: E86.0 Dehydration (principal); R62.7 Adult failure to thrive; I95.9 Hypotension, unspecified; I42.0 Dilated cardiomyopathy; I48.91 Unspecified atrial fibrillation; N18.3 Chronic kidney disease, stage 3 (moderate); Z78.1 Physical restraint status; R50.9 Fever, unspecified; E87.1 Hypo-osmolality and hyponatremia; Z66 Do not resuscitate; I12.9 Hypertensive chronic kidney disease with stage 1 through stage 4 chronic kidney disease, or unspecified chronic kidney disease; K21.9 Gastro-esophageal reflux disease without esophagitis; E78.5 Hyperlipidemia, unspecified; F41.9 Anxiety disorder, unspecified; K22.70 Barrett's esophagus without dysplasia; R26.9 Unspecified abnormalities of gait and mobility; Z95.2 Presence of prosthetic heart valve; Z85.528 Personal history of other malignant neoplasm of kidney; Z85.46 Personal history of malignant neoplasm of prostate; Z86.73 Personal history of transient ischemic attack (TIA), and cerebral infarction without residual deficits; Z90.5 Acquired absence of kidney; Z92.3 Personal history of irradiation
CPT/HCPCS: 70450; 71045; 71250; 74176; 80053; 81001; 82140; 82550; 82607; 83605; 84443; 84484; 85007; 85025; 85027; 85610; 85730; 87040; 93005; 96360; 96361; G8987-GP; G8988-GP; G8996-GN; G8997-GN; J0131; J0692; J2060; J2543; J3370; J7030; J7050